=== PATIENT | female | born 1985 | race Caucasian/White ===

== ENCOUNTER 2018-02-17 11:45 | Outpatient (REF) | payer MEDICAID, SELFPAY ==
--- NOTE | 2018-02-17 11:00 | PAPFT_PTH ---
PATIENT: Casie Wild LOC: [facility] U#:[id number] AGE/SX: 32/F ROOM: RE02/17/[address]: RASHMI Martinez : 1985 BED: DIS: 02/17/2018 SPEC #: [id number] RECD: 02/17/18 13:08 STATUS: DANIEL REKeo #: [id number] BRITTANY: 02/17/18 11:[address]: Brittany Morrell DEPT: [facility] Cytology RECD BY: Cheyenne Landis ENTERED: 02/17/18 13:08 SP TYPE: PAPFT OTHR DR: Chris Avalos Tissues: 1 - CX/ENDOCX FOR PAP SMEARS Procedures: PAP THIN PREP/UVM Screening HPV DNA PROBE Comments: [id number]
== END 2018-02-17 12:05 ==
LOC: LBN 11:45
PROVIDERS: PCP Internal Medicine; Visit Provider Nurse Practitioner Family
DX: Z12.4 Encounter for screening for malignant neoplasm of cervix (principal); Z11.51 Encounter for screening for human papillomavirus (HPV)
CPT/HCPCS: 88142; 87624

== ENCOUNTER 2019-04-20 13:06 | Outpatient (REF) | payer MEDICAID, SELFPAY ==
--- NOTE | 2019-04-20 11:30 | PAPFT_PTH ---
PATIENT: Casie Wild LOC: [facility] U#:[id number] AGE/SX: 33/F ROOM: RE04/20/[address]: RASHMI Martinez : 1985 BED: DIS: 04/20/2019 SPEC #: [id number] RECD: 04/20/19 17:45 STATUS: DANIEL REKeo #: [id number] BRITTANY: 04/20/19 11:[address]: Brittany Morrell DEPT: [facility] Cytology RECD BY: Cheyenne Landis ENTERED: 04/20/19 17:45 SP TYPE: PAPFT OTHR DR: Chris Avalos Tissues: 1 - CX/ENDOCX FOR PAP SMEARS Procedures: PAP THIN PREP/UVM Screening HPV DNA PROBE Comments: [id number]
== END 2019-04-20 13:26 ==
LOC: LBN 13:06
PROVIDERS: PCP Internal Medicine; Visit Provider Nurse Practitioner Family
DX: Z12.4 Encounter for screening for malignant neoplasm of cervix (principal)
CPT/HCPCS: 88142; 87624

== ENCOUNTER 2020-04-27 16:13 | Outpatient (REF) | payer MEDICAID, SELFPAY ==
--- NOTE | 2020-04-27 15:45 | PAPFT_PTH ---
PATIENT: Casie Wild LOC: [facility] U#:[id number] AGE/SX: 34/F ROOM: RE04/27/[address]: Carmencita Baum DO : 1985 BED: DIS: 04/27/2020 SPEC #: [id number] RECD: 04/27/20 16:26 STATUS: MIGUEL AJess REQ #: [id number] BRITTANY: 04/27/20 15:[address]: Carmencita Baum DEPT: [facility] Cytology RECD BY: Cheyenne Landis ENTERED: 04/27/20 16:26 SP TYPE: PAPFT OTHR DR: Chris Avalos Tissues: 1 - CX/ENDOCX FOR PAP SMEARS Procedures: PAP THIN PREP/UVM Screening HPV DNA PROBE Comments: [id number] (CHLAMYDIA/GC)
[2020-04-28 15:02] LABS: Chlamydia Result Negative (Negative); GC Result Negative (Negative)
== END 2020-04-27 16:33 ==
LOC: LBN 16:13
PROVIDERS: PCP Internal Medicine; Visit Provider Obstetrics & Gynecology
DX: Z11.3 Encounter for screening for infections with a predominantly sexual mode of transmission (principal); Z12.4 Encounter for screening for malignant neoplasm of cervix; Z11.51 Encounter for screening for human papillomavirus (HPV)
CPT/HCPCS: 87491; 87591; 88142; 87624

== ENCOUNTER 2020-08-02 17:05 | Outpatient (REF) | payer MEDICAID, SELFPAY | END 2020-08-02 17:06 | disposition home or self-care (01) | LOC: NCHCN 17:05 | PROVIDERS: PCP Internal Medicine; Visit Provider Family Medicine | DX: L01.09 Other impetigo (principal) | CPT/HCPCS: 87070; 87205 ==

== ENCOUNTER 2020-09-11 19:02 | Outpatient (REF) | payer MEDICAID, SELFPAY | END 2020-09-11 19:03 | disposition home or self-care (01) | LOC: NCHCN 19:02 | PROVIDERS: PCP Internal Medicine; Visit Provider Family Medicine | DX: R30.0 Dysuria (principal) | CPT/HCPCS: 87077; 87086; 87186 ==

== ENCOUNTER 2021-01-16 17:36 | Emergency (ER) | payer MEDICAID, SELFPAY ==
[2021-01-16 17:44] VITALS: BP 143/78; PULSE 86; RESP 16; TEMP 37.3; O2SAT 100
--- NOTE | 2021-01-16 18:00 | DI.RAD_ITS ---
Exam(s) XR THUMB RT EXAM: XR THUMB RT CLINICAL HISTORY: prox pain after deviation. TECHNIQUE: 2D digital imaging was performed of the right finger. Four views were obtained. PA/AP, oblique, and lateral views were obtained. COMPARISON: CR RIGHT HAND COMPLETE from 01/25/2011 FINDINGS: BONES: No acute fracture is present. No bony destructive lesion is seen. JOINTS: No dislocation present. SOFT TISSUE: Normal. IMPRESSION: No evidence of acute fracture, dislocation, or subluxation. DATA REPOSITORY: RADIATION DOSE DELIVERED:
--- NOTE | 2021-01-16 18:03 | ED.GENADUL_ITS ---
Discharge Plan Disposition Patient Disposition: HOME Condition: Improving Discharge Details Clinical Impression: Injury of thumb, right Primary Care Provider: Rayo Khalil ED Provider: Abdi Chaudhari Home Meds and New Rx's Prescriptions: Continued tramadol 50 MG tablet 1 - 2 tab PO BID PRN PRNRF: 0 Mirena 20 mcg/24 hours (7 yrs) 52 mg Intrauterine Device INTRAUTERINE RF: 0 Discharge Instructions Additional Instructions: Keep your hand elevated above the level of the heart to reduce pain and swelling. May apply ice to the splint to reduce discomfort. Tylenol as needed for pain and may continue your prescribed tramadol. As we discussed I am concerned for a skiers thumb or ulnar collateral ligament injury and therefore we have placed you in a splint we will have you follow-up in orthopedic clinic for recheck. Please call the clinic at [phone] for an appointment time. Splint to remain in place and dry until seen in orthopedics. Return to the ER for any acute concerns. 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 She developed immediate pain and swelling. With an exam that reveals tenderness over the thenar eminence. Referred for x-ray which does not reveal underlying bony abnormality. Given the forceful deviation of the thumb I am concerned for ulnar collateral ligament injury, and I discussed this with the patient and placed her in a thumb spica and I will have her follow-up in orthopedic clinic for follow-up and recheck. . HPI General Mode of arrival: ambulatory . Date/Time Provider Initiated Documentation: 01/16/21 17:56 . Limitations to Documentation: no limitations . Information obtained by: patient . History of Present Illness 35 year old F presents to the emergency department with the chief complaint of Right thumb injury and pain, described as moderate, Quality is described as dull and constant, and is localized to the right and upper extremity. Patient reports no radiation. Patient started experiencing this minute(s) and it has been constant. No relieving factors improve symptom(s), Movement worsens symptoms . Patient notes other (No other injury, no numbness or tingling. Applied ice prior to evaluation). Patient did receive the following treatments prior to arrival, cold therapy Related Data Home Medications Medication Instructions Recorded Confirmed tramadol 1 - 2 tab PO BID PRN PRN tab-cap 01/11/14 01/16/21 Mirena INTRAUTERINE 01/16/21 Allergies Allergy/AdvReac Type Severity Reaction Status Date / Time Penicillins Allergy Intermediate Hives Verified 01/16/21 17:48 General Stated Complaint: Orthopedic TRACI: 4 Review of Systems Narrative: No other injury, no numbness or tingling. Otherwise has been well. PFSH Family History Mother Uterine prolapse Social History Smoking/Tobacco Use Status: Current every day Tobacco Type: cigarettes Quit status: not considering quitting Smoking risk assessment performed?: Yes Drug use: Daily Substance use type: marijuana Female Reproductive History Menstrual control method: pills History History 0 Para Hx # Term Pregnancies Multiple births Hx # Pregnancies Ectopic pregnancies AB induced Hx Number of Living Children AB spontaneous Exam Narrative Exam Narrative: GEN: awake, alert, oriented 3. Pleasant, well groomed, interactive. HEAD: Normocephalic, atraumatic ENT: Mucous membranes moist, oropharynx unremarkable, External ear exam unremarkable EYES: PERRL, EOMI EXT: Range of motion limited by pain, right thumb base swollen and tender to palpation. Normal sensation. Able to initiate all movements of the thumb including apposition, but limited by pain. Neuro: Grossly normal neurologic exam, conversant, interactive. Psych: Speech fluent, thoughts congruent, affect normal Course Vital Signs Vital signs: Vital Signs Temperature 37.3 C 01/16/21 17:44 Pulse 86 01/16/21 17:44 Respiratory Rate 16 01/16/21 17:44 Blood Pressure 143/78 H 01/16/21 17:44 Pulse Oximetry 100 01/16/21 17:44 Temperature 37.3 C 01/16/21 17:44 Temperature Source Skin 01/16/21 17:44 Pulse 86 01/16/21 17:44 Respiratory Rate 16 01/16/21 17:44 Respiratory Effort Non-Labored 01/16/21 17:44 Blood Pressure 143/78 H 01/16/21 17:44 Blood Pressure Position Sitting 01/16/21 17:44 Pulse Oximetry 100 01/16/21 17:44 Oxygen Delivery Method Room Air 01/16/21 17:44 Oxygen Flow Rate 0 01/16/21 17:44 Pain Level 6 01/16/21 17:44 Procedures Orthopedic Splinting/Casting Injury #1: Side: right Upper Extremity Injury Location: hand Upper Extremity Immobilizer: thumb spica PAWSS Have you Been Recently Intoxicated or Drunk Within the Last 30 days?: Yes Have you Ever Experienced Previous Episodes of Alcohol Withdrawal?: No Have you ever Experienced Withdrawal Seizures?: No Have you ever Experienced Delirium Tremens(DT)s?: No Have you ever undergone Alcohol Rehabilitation Treatment (i.e, inpt ot outpatient treatment programs)?: No Have you ever Experienced Blackouts?: No Have you ever Combined Alcohol with other Downers within the last 90 days?: No Have you ever Combined Alcohol with any other Substance of Abuse during the last 90 days?: No Positive Blood Alcohol level on Presentation? [PCS.BAL]: No Evidence of Increased Autonomic Activity (i.e. HR>120, tremor, sweating, agitation, nausea)?: No Result: 1
--- NOTE | 2021-01-16 18:45 | DI.VRAD_ITS ---
PROCEDURE INFORMATION: Exam: XR Right Finger(s) Exam date and time: 01/16/2021 6:02 PM Age: 35 years old Clinical indication: Other: Prox pain after deviation TECHNIQUE: Imaging protocol: XR Right fingers. Views: Minimum 2 views. COMPARISON: No relevant prior studies available. FINDINGS: Bones/joints: Normal. Soft tissues: Normal. IMPRESSION: Unremarkable exam. Dictated and Authenticated by: Apoorva Ferrari MD. Ordering:JACQUELYN Patton MD
== END 2021-01-16 19:11 | disposition home or self-care (01) ==
PROVIDERS: Emergency Provider Emergency Medicine; PCP Family Medicine
DX: S69.91XA Unspecified injury of right wrist, hand and finger(s), initial encounter (principal); X50.9XXA Other and unspecified overexertion or strenuous movements or postures, initial encounter
CPT/HCPCS: 29125; 99283; 73140

== ENCOUNTER 2021-05-25 19:15 | Outpatient (REF) | payer MEDICAID, SELFPAY ==
[2021-05-25 14:24] LABS: HCT 39.6 % (36.0-46.0); HGB 13.1 g/dL (11.2-15.7); MCH 30.4 pg (27.0-33.0); MCHC 33.1 % (32.0-36.0); MCV 91.9 fL (80-95); MPV 9.9 fL (8.0-11.0); Platelet Count 208 10^3/uL (130-400); RBC 4.31 10^6/uL (3.93-5.22); RDW-SD 41.2 fL; WBC 7.46 10^3/uL (4.4-10.8)
[2021-05-25 15:02] LABS: Vitamin B12 674 pg/mL (193-986)
[2021-05-27 10:05] LABS: HIV-1/2 Ag & Ab Screen Negative (Negative)
[2021-05-28 10:32] LABS: Hepatitis C Ab w Rflx HCV PCR Negative (Negative)
== END 2021-05-25 19:16 | disposition home or self-care (01) ==
LOC: NCHCN 19:15
PROVIDERS: PCP Family Medicine; Visit Provider Family Medicine
DX: G47.00 Insomnia, unspecified (principal); K58.9 Irritable bowel syndrome, unspecified; F41.8 Other specified anxiety disorders; Q79.60 Ehlers-Danlos syndrome, unspecified; Z11.4 Encounter for screening for human immunodeficiency virus [HIV]; Z11.59 Encounter for screening for other viral diseases
CPT/HCPCS: 85027; 86803; 87389; 82607

== ENCOUNTER 2021-09-12 16:39 | Outpatient (REF) | payer MEDICAID, SELFPAY ==
--- NOTE | 2021-09-12 12:15 | SKI_PTH ---
PATIENT: Casie Wild LOC: [facility]#:[id number] AGE/SX: 35/F ROOM: RE09/12/[address]: Rayo Khalil : 1985 BED: DIS: 09/12/2021 SPEC #: [id number] RECD: 09/13/21 11:57 STATUS: DANIEL REQ #: [id number] BRITTANY: 09/12/21 12:[address]: Rayo Khalil DEPT: Surgical Specimen RECD BY: Cheyenne Landis Tissues: 1 - SKIN BIOPSY(SHAVE/PUNCH) Procedures: SKIN LEVEL 4 Comments: [id number]
== END 2021-09-12 16:40 | disposition home or self-care (01) ==
LOC: NCHCN 16:39
PROVIDERS: PCP Family Medicine; Visit Provider Family Medicine
DX: L30.8 Other specified dermatitis (principal)
CPT/HCPCS: 88305

== ENCOUNTER 2021-10-06 12:05 | Emergency (ER) | payer MEDICAID, SELFPAY ==
[2021-10-06 12:15] VITALS: BP 139/86; PULSE 97; RESP 16; O2SAT 100
--- NOTE | 2021-10-06 12:28 | NUR.NOTE ---
Nursing Note: Patient stated to Lior Chandler that she did not need to be seen anymore and was leaving. Patient left.
== END 2021-10-06 12:27 | disposition left before discharge ==
PROVIDERS: PCP Family Medicine
DX: Z53.21 Procedure and treatment not carried out due to patient leaving prior to being seen by health care provider (principal)

== ENCOUNTER 2021-11-06 19:09 | Outpatient (REF) | payer MEDICAID, SELFPAY ==
[2021-11-08 15:11] LABS: Chlamydia Result Negative (Negative); GC Result Negative (Negative)
== END 2021-11-06 19:10 | disposition home or self-care (01) ==
LOC: LBN 19:09
PROVIDERS: PCP Family Medicine; Visit Provider Family Medicine
DX: N89.8 Other specified noninflammatory disorders of vagina (principal); J02.9 Acute pharyngitis, unspecified
CPT/HCPCS: 87491; 87591; 87480; 87510; 87660

== ENCOUNTER 2022-02-09 14:32 | Outpatient (REF) | payer MEDICAID, SELFPAY ==
[2022-02-11 17:54] LABS: Chlamydia Result Negative (Negative); GC Result Negative (Negative)
== END 2022-02-09 14:33 | disposition home or self-care (01) ==
LOC: LBN 14:32
PROVIDERS: PCP Family Medicine; Visit Provider Physician Assistant Medical
DX: N89.8 Other specified noninflammatory disorders of vagina (principal)
CPT/HCPCS: 87491; 87591; 87480; 87510; 87660

== ENCOUNTER → 2022-02-11 10:46 | Outpatient (CLI) | payer MEDICAID, SELFPAY ==
--- NOTE | 2022-02-11 | DI.CT_ITS ---
Exam(s) CT CHEST PE CTA EXAM: CT CHEST PE CTA CLINICAL HISTORY: DYSPNEA, R06.00, DISCOMFORT LT ANT UPPER LUNG. TECHNIQUE: Imaging Protocol: Axial CT angiography was performed with multi-slice acquisition and mu lti-planar reconstructions as well as axial, coronal and sagittal MIP reconstructions. CONTRAST MATERIAL: Intravenous: Omnipaque 350 Contrast volume:100 ml COMPARISON: No exams were available for comparison FINDINGS: Pulmonary Arteries: No evidence of filling defect to suggest pulmonary emboli. Tracheobronchial tree: Patent where visualized. Mediastinum and Albertina: No dominant adenopathy or fluid collection. Pulmonary parenchyma: No consolidation or dominant measurable mass. Pleura: No effusion or pneumothorax. Heart: The heart is not dilated. No coronary artery calcifications are seen. Aorta: Thoracic aorta non-dilated. No aneurysm. No dissection. Upper abdomen: Unremarkable. Bones: Unremarkable for age. Tubes, Catheters, and Lines: None IMPRESSION: No evidence of pulmonary embolism or other acute abnormality.. RADIATION DOSE DELIVERED: 343.92mGy.cm Total DLP DATA REPOSITORY: All CT scans at this facility are submitted to the National Radiology Data Registry (NRDR) Dose Index Registry (DIR) with the [employer] (ACR). RADIATION OPTIMIZATION: All CT scans at this facility use at least one of these dose optimization te chniques: automated exposure control; mA and/or kV adjustment per patient size (includes targeted exa ms where dose is matched to clinical indication); or iterative reconstruction.
--- OUTSIDE RECORDS SUMMARY | 2022-02-11 10:49 | XMS_ITS | Encounter Summary ---
:1985 Author Organization [facility] [place] [address] Care Team Providers Name Role Phone Chris Avalos MD Primary Care Provider Reason for Visit Reason Comments Right Arm Pain Encounter Details Date Type Department Care Team Description 11/21/2010 Follow-Up Pain Management at [facility], RSD upper limb (Primary [place] Dx) [facility] [place] [address] [facility]IN CL[facility]IC [phone] [place] [address] (Wo rk) Social History Tobacco Use Types Packs/Day Years Used Date Smoking Tobacco: Every Day Cigarettes 1 Alcohol Use Standard Drinks/Week Comments Not Asked 0 (1 standard drink = 0.6 oz pure alcoho l) Sex Assigned at Date Recorded Not on file documented as of this encounter Last Filed Vital Signs Vital Sign Reading Time Taken Comments Blood Pressure 132/87 11/21/2010 11:15 AM EDT Pulse 99 11/21/2010 11:15 AM EDT Temperature - - Respiratory Rate - - Oxygen Saturation 100% 11/21/2010 11:15 AM EDT Inhaled Oxygen Concentration - - Weight 64.9 kg (143 lb) 11/21/2010 11:15 AM EDT Height 177.8 cm (5' 10) 11/21/2010 11:15 AM EDT Body Mass Index 20.52 11/21/2010 11:15 AM EDT documented in this encounter Progress Notes [facility] MD - 11/21/2010 5:31 PM EDT The patient returns for followup for complex regional pain syndrome (CRPS) of right upper extremity.Patient states that the tramadol does help reduce the pain but does not eliminate it. It makes it more tolerable but she tries to avoid taking medications so she is not taking it routinely. When she does take 2 pills at once it helps significantly. Of significance because of her mood problems she has been discontinued from Ritalin and started on Depakote. Apparently her Depakote level was low when itwas measured because of problems with tiredness. Dr. Avalos is a managing her mood medications. The significance most antidepressants give her adverse reactions and particularly during the early starting weeks made her quite suicidal. She has scheduled acupuncture trial to see if that will help. She has been told by her physical therapist that most of nerve problems burn them self out after a while. She finds desensitization techniques continue to bother her and wonders why the physical therapist con tinues to recommend doing them she is doing a home exercise program and wonders if that is beneficial because it hurts. She is still not interested in any stellate ganglion block. She is even less interested in any spinal cord stimulator implantation and trial. She does report that she had a functional capacity evaluation and wound up with 3 days of severe intense pain and swelling which she reportedback to the examining person. She still notes some residual swelling. She still notes discomfort to any touching of the right arm. Objective: Mild edema mild coolness of the right upper extremity noted with allodynia circumferentially throughout the right forearm and hand. She now makes the more stringent criteria for the diagnosis of cramps of the right upper extremity. Recommendations I did recommend that she takes at least 6 tramadol per day to every 6 hours during the daytime skip the nighttime or go to 2 every 8 hours. Trying to keep the pain under better control so she can continue with the desensitization exercises and continued physical therapy home exercise program as importance for the management of CRPS. I would consider trying Neurontin or Lyrica as antiseizure medications to help with neuropathic pain particularly the pins and needles she is feeling in the arm. However both Lyrica and Neurontin have mood elevation and changing effects that may modify her treatment with her current Depakote for her mood effects. Perhaps if her Depakote can be raised hig her she may get some pain relief because it also is an antiseizure medication. If the Depakote does not give her adequate treatment of her mood then consideration of addition or changing over to Lyricaor Neurontin would be an option that Dr. Avalos could consider. Given her reaction to antidepressants I reluctant to start those and would defer to Dr. Avalos if those are indicated given her other past history. Finally stronger opioids may be an option my recommendation would be methadone but she is frightened of that is being a drug for addiction. She states that Percocet has worked well for her post surgery and would wonder about being able to utilize that although she is not in favor of using chronic narcotics at all at this point either. The final option would be cognitive behavioral therapy which her therapist to provide or referral can be made to Dr. Wood in our psychology department at [facility]. Unfortunately other than physical therapy and medical management which would best be done through Dr. Avalos because of all of the various interactions and psychological side effects that can occur I really have not much else to offer the patient. I therefore I have not set up a followup appointment at this point in time. If she changes her mind and wants to try a stellate ganglion block at some point in the future she can be referred back just for the performance of at procedure unless she needs todiscuss the procedure and risk and more with me. We did discuss the risk including Maryellen's syndrometemporarily related to the local anesthetic hoarseness difficulty swallowing related to the local anesthetic remote chance of nerve injury remote chance of spilling over local anesthetic and to a brachial plexus block reaction to medications and nerve injury. We talked free if briefly about the spinalcord stimulator as being placement of a catheter in the epidural space was similar risk to having anepidural for childbirth. We did provide her with a video on spinal cord stimulation so that she could review that at her leisure. We spent over 30 minutes of direct [id number]-[id number] time with this patient which more than 20 minutes was counseling and advising the patient as mentioned above. documented in this encounter Plan of Treatment Not on filedocumented as of this encounter Visit Diagnoses Diagnosis RSD upper limb - Primary Reflex sympathetic dystrophy of the uppe r limb documented in this encounter Care Teams Pet Groomer Relationship Specialty Start Date End Date Chris Avalos MD PCP - General 02/20/10 02/04/21 [address] [place] [address] documented as of this encounter
--- OUTSIDE RECORDS SUMMARY | 2022-02-11 10:49 | XMS_ITS | Encounter Summary ---
:1985 Author Organization [place] [address] Care Team Providers Name Role Phone Chris Avalos MD Primary Care Provider Reason for Visit Reason Comments Joint Pain Encounter Details Date Type Department Care Team Description 09/19/2010 Office Visit Pain Management at [facility] MD [facility] [place] [address] Elbow pain (Primary [place] Unknown None Dx) [place] [id number] Social History Tobacco Use Types Packs/Day Years Used Date Smoking Tobacco: Every Day Cigarettes 1 Tobacco Cessation: Ready to Quit: No Alcohol Use Standard Drinks/Week Comments Not Asked 0 (1 standard drink = 0.6 oz pure alcoho l) Sex Assigned at Date Recorded Not on file documented as of this encounter Last Filed Vital Signs Vital Sign Reading Time Taken Comments Blood Pressure 136/85 09/19/2010 2:39 PM EDT Pulse 87 09/19/2010 2:39 PM EDT Temperature - - Respiratory Rate - - Oxygen Saturation 100% 09/19/2010 2:39 PM EDT Inhaled Oxygen Concentration - - Weight 63 kg (139 lb) 09/19/2010 2:39 PM EDT Height 177.8 cm (5' 10) 09/19/2010 2:39 PM EDT Body Mass Index 19.94 09/19/2010 2:39 PM EDT documented in this encounter Progress Notes [facility] MD - 09/20/2010 6:08 PM EDT Subjective: Patient ID: Casie Wild is a 24 y.o. female. I have been requested by Dr. Russo to see Casie Wild for my opinion and recommendations regarding Chief Complaint Patient presents with ??? Joint Pain And possible complex regional pain syndrome. 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 During part of the treatment for that problem she had an injection near the lateral epicondyles approximately a year ago. At the time of the injection of the local tissue turned white there is incredible pain and still feels like there is a screw or nail and the elbow. She notes that the whole hand will swell at times. The pain is gone all theway up into her shoulder as a sharp twisting pain with a tightness in the forearm now. She knows that putting clothes rubbing against the arm will bother her and stress his will bother her. She notes that there is numbness in the ring and little fingers of the right hand. She's had II nerve conductionstudies which he reports showed no nerve damage. She has been treated with Lodine I believe. As wellas a Voltaren gel Novocain patches injurious other NSAIDs orally which led to vomiting. The pain is described as a constant ache with a cold feeling around the elbow in the right arm feels colder than the left arm. She's never recall trying Neurontin or Lyrica. She has tried physical therapy in contrast baths and various desensitization exercises to help with this problem. Review of Systems Constitutional: Negative for unexpected weight change. HENT: Negative for ear pain and dental problem. Respiratory: Negative for cough, shortness of breath and wheezing. Genitourinary: Negative for dysuria and hematuria. UTIs in the past Skin: Positive for color change. Neurological: Positive for seizures ( patient had one short lived seizure when she was in her youth and trying to make herself passed out). Hematological: Bruises/bleeds easily ( states she does bleed for a long time). Social history she is single living with a significant other she has no children she is smoking overa pack of cigarettes per day and occasionally drinks alcohol occasionally uses marijuana but no other significant drugs for at least 7 years Objective: Physical Exam Constitutional: She is oriented to person, place, and time. She appears well- developed and well-nourished. HENT: Head: Normocephalic. Eyes: Conjunctivae are normal. No scleral icterus. Neck: Neck supple. Musculoskeletal: Normal range of motion. Right shoulder: Normal. Right elbow: She exhibits deformity ( slight loss of subcutaneous tissues over the lateral epicondyles area). tenderness found. Lateral epicondyle tenderness noted. Lymphadenopathy: She has no cervical adenopathy. Neurological: She is alert and oriented to person, place, and time. She has normal strength. A sensory deficit is present. No cranial nerve deficit. Patchy decreased sensation and some allodynia spots in the right forearm hand area Skin: Both hands are cool with temperatures of 76??F on the right and 77??F on the left. There may be some slight swelling with loss of tissue lines on the right hand compared to the left hand. There is no differences in the colors of both hands Psychiatric: She has a normal mood and affect. Her behavior is normal. Judgment and thought content normal. Patient was easily moved to tears periodically throughout this examination and interview. Assessment and Plan: No problem-specific visit notes found for this encounter. Assessment is a patient with right upper extremity pain which by IASP would qualify for the diagnosis of CRPS right upper extremity. Some of the additional criteria that have become somewhat more stringent including examination evidence of pseudomotor edema or other possible issues at the time of thisexam are not quite made. Still I think that treatment along the lines medication ornelas has CRPS is reasonable Plan: 1. Patient is looking for some degree of pain relief now I think therefore will try some tramadol tosee if we can get pain relief without much in the way of addiction possibility. Because prescriptionwas written and side effects and recommendations were discussed. 2. If that is not successful then I would consider a trial of Lyrica or Neurontin. 3. I recommended that she continue with the desensitization exercises contrast baths and talk about stress loading techniques to help regain function. 4. We talked about stellate ganglion blocks but the patient is not at all enthusiastic about any injections particularly in her neck having see what happened to her injection at the elbow area. 5. I will see the patient in 4-6 weeks or I can work with her primary care to adjust the medications. documented in this encounter Plan of Treatment Not on filedocumented as of this encounter Visit Diagnoses Diagnosis Elbow pain - Primary Pain in joint, upper arm documented in this encounter Care Teams Deckhand Crab Boat Relationship Specialty Start Date End Date Chris Avalos MD PCP - General 02/20/10 02/04/21 [address] [place] [address] documented as of this encounter
--- OUTSIDE RECORDS SUMMARY | 2022-02-11 10:49 | XMS_ITS | Encounter Summary ---
:1985 Author Organization [facility] [place] [address] Care Team Providers Name Role Phone Chris Avalos MD Primary Care Provider Reason for Visit Reason Comments Establish Care Encounter Details Date Type Department Care Team Description 07/29/2013 Office Visit Endocrinology at [facility] uJdy Zhou; [facility] Alivno Johnson MD Chronic fatigue; [facility] Postural hypotension; [place] [address] CENTER Amenorrhea; [phone] ENDOCRINOLOGY Barrington-Danlos syndrome type III DEPT. [place], [place] [address] Social History Tobacco Use Types Packs/Day Years Used Date Smoking Tobacco: Every Day Cigarettes 1 Smokeless Tobacco: Never Alcohol Use Standard Drinks/Week Comments Not Asked 0 (1 standard drink = 0.6 oz pure alcoho l) Sex Assigned at Date Recorded Not on file documented as of this encounter Last Filed Vital Signs Vital Sign Reading Time Taken Comments Blood Pressure 136/83 07/29/2013 1:54 PM EDT Pulse 81 07/29/2013 1:54 PM EDT Temperature - - Respiratory Rate - - Oxygen Saturation - - Inhaled Oxygen Concentration - - Weight 63.5 kg (140 lb) 07/29/2013 1:54 PM EDT Height 175.3 cm (5' 9) 07/29/2013 1:54 PM EDT Body Mass Index 20.67 07/29/2013 1:54 PM EDT documented in this encounter Progress Notes Alvino Smith MD - 07/29/2013 2:12 PM EDT Endocrinology Consultation Date of Visit: 07/29/2013 Patient: Name: Casie Wild : 1985 PCP: CHRIS AVALOS MD Performed by: Dr. Alvino Smith MD., PhD., FACE Casie Wild was seen in consultation in the Endocrine clinic at the request of Dr. CHRIS AVALOS MD For the evaluation of PCOS. Patient's previous record as are the lab results are reviewed. Brief History of Present Illness: Casie Wild is a very pleasant 27 y.o. year old female with the following problem list: Patient Active Problem List Diagnosis Code ??? CIS - ADHD T999.0 ??? CIS - Entered not Verified T999.0 ??? CIS - Left both bones fracture T999.0 ??? CIS - Right elbow pain T999.0 ??? CIS - Right lateral epicondylitis T999.0 ??? Elbow pain 719.42 ??? RSD upper limb 337.21 ??? Joint laxity 718.80 ??? Chronic joint pain 719.40 ??? 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 Polycystic ovaries with facial hair growth and night sweats 256.4 ??? 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 She has a long-standing history of hirsutism and irregular periods since menarche at age of 12. She was started on OCP's since age 13 to help regulate her periods and noted some improvement of her symptoms. Had polycystic ovaries seen on pelvic ultrasound in the past at age of 20 when she visited ED (ruptured ovarian cyst). Never tried laser ablation and electrolysis for the unwanted facial hairs but ok with plugging and bleaching for recurrent hair growth. Currently she is plugging her face and upper lip and bleaching once per week. Never had testosterone levels in the past. She is using microgestin pills for OCPs without taking placebo pills so she has been amenorrheic and does not like to have monthly periods (used to have heavy periods with low iron in the past). ROS:(Details as shown in patient's initial visit questionaire) Constitutional: +some tiredness. No recent weight gain, no heat or cold intolerance Endocrine: No thyroid problems. +nocyurna; sweating and flushing. No galactorrhea or breast tenderness. Irregular menstrual cycles before she started BCPs. +low sexual desire. Integument:+excessive hair growth, acne, oily skin but no balding. No easily bruising. Neurological: Some Rt side and top of the head headache. No weakness. + dizziness with postural hypotension lately (*on tramadol 400-500 mg/day for Rt RSD for the past 3-4 yrs) HEENT: No recent vision change or deepened voice Cardiovascular: No chest pain or palpitations Respiratory: No cough, wheezing, shortness of breath GI: Normal appetite. No nausea, vomiting except for some IBS with diarrhea & constipation : No clitoromegaly. No polyuria Musculoskeletal:+ joint aches over the Rt hip and lower back, elbow and left ankle. Also, muscle pain. Psych: No depression, anxiety PMH: Patient Active Problem List Diagnosis Code ??? CIS - ADHD T999.0 ??? CIS - Entered not Verified T999.0 ??? CIS - Left both bones fracture T999.0 ??? CIS - Right elbow pain T999.0 ??? CIS - Right lateral epicondylitis T999.0 ??? Elbow pain 719.42 ??? RSD upper limb 337.21 ??? Joint laxity 718.80 ??? Chronic joint pain 719.40 ??? 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 Polycystic ovaries with facial hair growth and night sweats 256.4 ??? Chronic fatigue 780.79 Current Outpatient Prescriptions on File Prior to Visit Medication Sig Dispense Refill ??? traMADol (ULTRAM) 50 mg tablet Take 50 mg by mouth every 6 hours as needed. ??? Ascorbic Acid (VITAMIN C) 1,000 mg tablet Take 1,000 mg by mouth daily. ??? FSH/FLX/PRM/BLK/BOR/OM3,6,9 #5 (OMEGA 3-6-9 FATTY ACIDS ORAL) Take 2 capsules by mouth daily. ??? Norethindrone Ac-Eth Estradiol (MICROGESTIN 1.5/30, 21,) 1.5-30 mg-mcg Tab ??? multivitamin (MULTIPLE VITAMINS) tablet ??? methylphenidate (RITALIN) 10 mg tablet Take 10 mg by mouth 3 times daily. ??? [DISCONTINUED] LEIGH ANN PRIM/LINOLEIC/GAMOLENIC AC (PRIMROSE OIL ORAL) Take 1 capsule by mouth daily. Allergies Allergen Reactions ??? Penicillins Hives ??? Chantix (Varenicline) Other (See Comments) depression History Social History ??? Marital Status: Single Spouse Name: N/A Number of Children: 0 ??? Years of Education: N/A Occupational History ??? unemployed Social History Main Topics ??? Smoking status: Current Every Day Smoker -- 1.0 packs/day ??? Smokeless tobacco: Never Used ??? Alcohol Use: None ??? Drug Use: Yes Comment: in past ??? Sexually Active: None Other Topics Concern ??? None Social History Narrative Patient lives with her boyfriend and is unemployed due to disability since 2008 due to right arm injury. No family history on file. PE: BP 136/83 Pulse 81 Ht 175.3 cm (5' 9) Wt 63.504 kg (140 lb) BMI 20.67 kg/m2 Appearance: Patient is very pleasant 27 y.o. years old female, obese, clinically euthyroid, not in acute distress, accompanied by her boyfriend who is very supportive. Skin - normal in texture and temperature, no abnormal striae or ecchymosis. She has hypermobility skin and joint and can do dorsiflexion of her thumb back to forearm. HEENT - +minimal facial acne and hirsutism (s/p plugging) with some terminal hairs around her lips and along the side of her face. No temporal alopecia. PERRLA, EOMI, no lid lag or exophthalmos. Neck - supple, no goiter or nodule, no lymphadenopathy Lungs - Normal chest expansion, no crackles or wheeze Heart - regular rhythm, normal apical impulse, normal S1, S2 and no murmur Abdomen - soft, non-tender, no hepatosplenomegaly Extremities - no pitting edema, normal distal pulses, no proximal muscle weakness, reflexes were normal Assessment: Casie Wild is a 27 y.o. year old female with longstanding history of irregular menstrual cycles since menarche, some worsening facial hirsutism recently, mild facial acne and already taking BCPs (microprogestin active pills without placebo pills so she has been amenorrheic chronically). She has US s howed polycystic ovaries and will check labs to see if she has features of PCOS. Her main problems are cosmetic issues and she has no desire for fertility at present. No features of metabolic syndrome and in good weight. We will check her some of her hormonal profile to exclude other causes of her symptoms and start treatment for her hirsutism as well. Her main concern today is for hot flushes and night sweats despite taking micro- progestin. She wantsto try estrogen replacement with periodic progesterone withdrawal bleeding to see if it helps her hot flushes. 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 Will check her pituitary hormones to make sure that she does not have side effects of narcotic-induced hypopituitarism which affects mostly the gonadal axis and rarely adrenal axis without thyroid issue. She c/o dizziness, near-fainting episodes, and postural hypotension occasionally as well. Recommendation: 1. Medication: Patient will start taking spironolactone 25-50 mg bid to help block testosterone effects at the hair follicles. Ok to try to switch microgestin to estradiol 1 mg qd and also provera 10 mg for 7-10 days every 60-90 days for withdrawal bleeding to see if this will help with her hot flushes and sweating which bother her most at present. Patient was advised of proper dosage, how to take the medication properly, precautions, and possible side effects of the medication prescribed. Patient will continue all current medications, healthy diet and execise regularly as tolerated. 2. Lab: check lab today for total and free testosterone, DHEAS, PRL, FSH, LH, TSH, FT4, corisol, ACTH, IGF-1, CMP and 25-vitamin D We will let patient know lab test results and adjust medication if needed during this interim. 3. RTC: Next visit in 3 months. Will check estradiol level and BMP and maybe some other labs at the time (quick-draw lab so we know the result right away at visit). We have reviewed our plan outlined above with the patient and patient verbalized understanding and is agreeable with this management. All questions were answered and most of the time was spent on counseling about pertinent medical conditions, medications adjustment including pros and cons of starting m edication, the diagnostic and therapeutic decisions, and coordination of care. Thank you for allowing me to participate in the care of this very pleasant and interesting patient. Alvino Smith MD, PhD, FACE CC: CHRIS AVALOS MD documented in this encounter Plan of Treatment Not on filedocumented as of this encounter Procedures Procedure Name Priority Date/Time Associated Comments Diagnosis INSULIN LIKE GF-1 Routine 07/29/2013 3:10 PM Hirsutism Results for this EDT Chronic fatigue procedure are in Postural the results hypotension section. DIFFERENTIAL, Routine 07/29/2013 3:10 PM Results for this AUTOMATED EDT procedure are i n the results section. TESTOSTERONE, TOTAL Routine 07/29/2013 3:10 PM Hirsutism Results for this AND FREE EDT Chronic fatigue procedure are in Postural the results hypotension section. IRON AND TIBC Routine 07/29/2013 3:10 PM Hirsutism Results for this EDT Chronic fatigue procedure are in Postural the results hypotension section. VITAMIN D, 25-HYDROXY Routine 07/29/2013 3:10 PM Hirsuti sm Results for this EDT Chronic fatigue procedure are in Postural the results hypotension section. PROLACTIN Routine 07/29/2013 3:10 PM Hirsutism Results for this EDT Chronic fatigue procedure are in Postural the results hypotension section. DHEA-SULFATE Routine 07/29/2013 3:10 PM Results f or this EDT procedure are i n the results section. ESTRADIOL Routine 07/29/2013 3:10 PM Results f or this EDT procedure are i n the results section. ACTH Routine 07/29/2013 3:10 PM Hirsutism Results for this EDT Chronic fatigue procedure are in Postural the results hypotension section. CBC (WITH DIFF) Routine 07/29/2013 3:10 PM Hirsutism Results for this EDT Chronic fatigue procedure are in Postural the results hypotension section. TSH Routine 07/29/2013 3:10 PM Hirsutism Results for this EDT Chronic fatigue procedure are in Postural the results hypotension section. T4, FREE Routine 07/29/2013 3:10 PM Hirsutism Results for this EDT Chronic fatigue procedure are in Postural the results hypotension section. LUTEINIZING HORMONE Routine 07/29/2013 3:10 PM Amenorrhea Re sults for this EDT procedure are i n the results section. FOLLICLE STIMULATING Routine 07/29/2013 3:10 PM Amenorrhea R esults for this HORMONE EDT procedure are i n the results section. CORTISOL Routine 07/29/2013 3:10 PM Hirsutism Results for this EDT Chronic fatigue procedure are in Postural the results hypotension section. COMPREHENSIVE Routine 07/29/2013 3:10 PM Hirsutism Results for this METABOLIC PANEL EDT Chronic fatigue procedure are in (NON-FASTING) Postural the results hypotension section. documented in this encounter Results DHEA-sulfate (07/29/2013 3:10 PM EDT) athologist Signature DHEAS 106.5 98.8 - CERNER 340.0 MILLENNIUM mcg/dL Specimen Anatomical Collection Method Collection Time Receive d Time (Source) Location / / Volume Laterality Blood specimen 07/29/2013 3:10 PM 014 (specimen) EDT 10:49 AM EDT Resulting Agency Comment Spec In Lab Alvino Smith MD CHEMISTRY ORDERABLES Performing Organization Address City/State/ZIP Code Phon e Number [place] [phone] CERNER MILLENNIUM Estradiol (07/29/2013 3:10 PM EDT) P athologist Signature Estradiol <10 pg/mL CERNER MILLENNIUM Comment: result rechecked-NM Reference ranges: Males: ?? 1-10 years: <5 to 20 pg/mL ?? Adult: ? 0 to 45 pg/mL Females: ?? 1-10 years ??6 to 27 pg/mL Non- females: ?Follicular: ??0-178 pg/mL ?Ovulation: ??48-388 pg/mL ?Luteal: ??31-247 pg/mL ?Postmenopausal: ??0-46 pg /mL females: ?1st trimester: ??38-3175 pg/mL ?2nd trimester: ??678-1663 3 pg/mL ?3rd trimester: ??43-57300 pg/mL Specimen Anatomical Collection Method Collection Time Receive d Time (Source) Location / / Volume Laterality Blood specimen 07/29/2013 3:10 PM 014 9:03 (specimen) EDT PM EDT Resulting Agency Comment Spec In Lab Alvino Smith MD CHEMISTRY ORDERABLES Performing Organization Address City/State/ZIP Code Phon e Number [place] [phone] CERNER MILLENNIUM (ABNORMAL) Differential, Automated (07/29/2013 3:10 PM EDT) [facility] gist Method Time Signature Neutrophils % 49.4 34.0 - CERNER 71.0 % MILLENNIUM Neutr Abs (ANC) 3.97 1.50 - CERNER 6.30 MILLENNIUM x10(3)/mcL Lymphocytes % 44.2 19.0 - CERNER 53.0 % MILLENNIUM Lymphocytes Abs 3.6 1.0 - 3.6 CERNER x10(3)/mcL MILLENNIUM Monocytes % 3.2 (L) 4.0 - 13.0 CERNER % MILLENNIUM Monocyte Abs 0.3 0.2 - 1.0 CERNER x10(3)/mcL MILLENNIUM Eosinophils % 2.6 0.0 - 7.0 CERNER % MILLENNIUM Eosinophils Abs 0.2 0.0 - 0.5 CERNER x10(3)/mcL MILLENNIUM Basophils % 0.4 0.0 - 2.0 CERNER % MILLENNIUM Basophils Abs 0.0 0.0 - 0.2 CERNER x10(3)/mcL MILLENNIUM Immature Gran % 0.20 0.00 - CERNER 0.66 % MILLENNIUM Comment: Immature granulocytes(IG's)percentage an d absolute count will include metamyelocytes, myelocytes, and promyelo cytes. Blood smears from CBCs yielding IG's will be scanned manually for concor dance. If this scan disagrees with the automated IG or if promyelocytes are not ed, a manual differential will be performed. Lynette Gran Abs 0.02 0.00 - 0.05 x10(3)/mcL CER NER [facility] Specimen Anatomical Collection Method Collection Time Receive d Time (Source) Location / / Volume Laterality Blood specimen 07/29/2013 3:10 PM 014 3:15 (specimen) EDT PM EDT Alvino Smith MD HEMATOLOGY ORDERABLES Performing Organization Address [facility] Phon e Number [address] [facility] Luteinizing Hormone (07/29/2013 3:10 PM EDT) athologist Signature LH 1.3 mlU/ML [facility] Comment: Reference ranges: ?? Females ?? Follicular: ? 2.4-12.6 mIU /mL ?? Ovulation: ?14.0-95.6 m IU/mL ?? Luteal: ? 1.0-11.4 m IU/mL ?? Postmenopausal: ? 7.7-58.5 mIU/m L Specimen Anatomical Collection Method Collection Time Receive d Time (Source) Location / / Volume Laterality Blood specimen 07/29/2013 3:10 PM 014 3:15 (specimen) EDT PM EDT Resulting Agency Comment Spec In Lab Alvino Smith MD CHEMISTRY ORDERABLES Performing Organization Address [facility] Phon e Number [address] [facility] Follicle Stimulating Hormone (07/29/2013 3:10 PM EDT) P athologist Signature FSH 3.0 mlU/ML [facility] Comment: Reference Ranges: Females: Follicular: ? 3.5-12.5 mIU/mL Ovulation: ?4.7-21.5 mIU/mL Luteal: ? 1.7-7.7 mIU/mL Postmenopausal: 25.8-134.8 mIU/mL Specimen Anatomical Collection Method Collection Time Receive d Time (Source) Location / / Volume Laterality Blood specimen 07/29/2013 3:10 PM 014 3:15 (specimen) EDT PM EDT Resulting Agency Comment Spec In Lab Alvino Smith MD CHEMISTRY ORDERABLES Performing Organization Address City/[facility]/ZIP Code Phon e Number [address] CERNER MILLENNIUM VIT D Total Evaluation (07/29/2013 3:10 PM EDT) P athologist Signature 25-OH Vit D 31 30 - 100 CERNER Total ng/mL [facility] Comment: Deficient <10 ng/mL Insufficient 10 to 29 ng/mL Sufficient 30 to 100 ng/mL Potential Intoxication >100 ng/mL According to the [place] National Osteoporosi s Foundation, Vitamin D concentrations >30 ng/mL are sufficient to protect bone health. ??The National Kidney Foundation has similarly stated that pat ients with Vitamin D concentrations <30ng/mL should be considered to be insu fficient or deficient. http://www.kidney.org/professionals/KDOQ I/guidelines_bone/Guide7.htm http://nof.org/files/nof/public/content/ clinicalupdates/clinicalupdates/Issue2 5VitaminD/2012_VitaminD.html The IDS iSYS Vitamin D Immunoassay detec ts both 25-OH Vitamin D2 and 25-OH Vitamin D3, but only a total Vitamin D c oncentration is reported. Specimen Anatomical Collection Method Collection Time Receive d Time (Source) Location / / Volume Laterality Blood specimen 07/29/2013 3:10 PM 014 3:15 (specimen) EDT PM EDT Resulting Agency Comment Spec In Lab Alvino Smith MD CHEMISTRY ORDERABLES Performing Organization Address City/[facility]/ZIP [facility] Phon e Number [address] CERNER MILLENNIUM Comprehensive metabolic panel (non-fasting) (07/29/2013 3:10 PM EDT) P athologist Signature Glucose Lvl 80 60 - 199 CERNER mg/dL MILLENNIUM Comment: Diabetes: >=200 mg/dL plus symp toms BUN 11 8 - 18 mg/dL CERNER MILLENNIUM Creatinine 0.87 0.70 - 1.20 mg/dL CERNER MILL ENNIUM Comment: Please note that the pediatric reference intervals supplied above were not validated at [facility]. Results from pediatri c patients should be interpreted in conjunction to the patient's age, height and muscle mass. Sodium 137 135 - 145 mmol/L CERNER HALIE NIUM Potassium 3.5 3.5 - 5.0 mmol/L CERNER HALIE NIUM Comment: Please note: ??Patients with WBC >100,00 0 may have falsely elevated Potassium levels. ??For accurate Potassium quantif ication in these patients send serum separator tube (gold top) for subsequent determinations. ??Contact the Clinical Chemistry Laboratory if there are any qu estions. Chloride 100 98 - 107 mmol/L CERNER MILLENN IUM CO2 26 22 - 31 mmol/L CERNER MILLENNI UM Anion Gap 11 5 - 15 mmol/L CERNER MILLENNIU M Calcium 9.2 8.5 - 10.5 mg/dL CERNER HALIE NIUM Total Protein 7.2 6.4 - 8.3 gm/dL CERNER MIL LENNIUM Albumin 4.7 3.2 - 5.2 gm/dL CERNER MILLENN IUM AST 19 0 - 30 unit/L CERNER MILLENNIU M ALT 16 0 - 30 unit/L CERNER MILLENNIU M Alk Phos 50 40 - 104 unit/L CERNER MILLENN IUM Total Bilirubin 0.2 0.2 - 1.3 mg/dL CERNER M ILLENNIUM Bili, Direct 0.1 0.0 - 0.3 mg/dL CERNER MILL ENNIUM Estimated GFR >60 >=60 CERNER MILLENNIU M Comment: This estimated GFR (eGFR) value was calc ulated using the MDRD equation which has been validated on patients between t he ages of 18 and 70. The MDRD should not be used to assess kidney function in patients < 18 years of age or in patients with extremes of body mass, or in patients with acute kidney failure. This value should be multiplied by 1.2 f or patients. For further information please copy and past e the following links into your internet browser. http://www.nkdep.nih.gov/lab-evaluation. shtml http://www.kidney.org/professionals/ Specimen Anatomical Collection Method Collection Time Receive d Time (Source) Location / / Volume Laterality Blood specimen 07/29/2013 3:10 PM 014 3:15 (specimen) EDT PM EDT Resulting Agency Comment Spec In Lab Alvino Smith MD CHEMISTRY ORDERABLES Performing Organization Address City/[facility]/ZIP Code Phon e Number [address] CERNER MILLENNIUM (ABNORMAL) Iron and TIBC (07/29/2013 3:10 PM EDT) Analysis Performed At Patho logist Time Signature Iron 110 30 - 150 CERNER mcg/dL MILLENNIUM TIBC 470 (H) 250 - 450 CERNER mcg/dL MILLENNIUM Iron Saturation 23 20 - 50 % CERNER MILLENNIUM Specimen Anatomical Collection Method Collection Time Receive d Time (Source) Location / / Volume Laterality Blood specimen 07/29/2013 3:10 PM 014 3:15 (specimen) EDT PM EDT Resulting Agency Comment Spec In Lab Alvino Smith MD CHEMISTRY ORDERABLES Performing Organization Address City/[facility]/ZIP [facility] Phon e Number [address] CERNER MILLENNIUM CBC (with Diff) (07/29/2013 3:10 PM EDT) P athologist Signature WBC 8.0 4.0 - 10.0 CERNER x10(3)/mcL MILLENNIUM RBC 4.29 3.93 - 5.22 CERNER x10(6)/mcL MILLENNIUM Hemoglobin 13.2 11.2 - 15.7 CERNER gm/dL MILLENNIUM Hematocrit 38.9 34.0 - 45.0 CERNER % MILLENNIUM MCV 90.7 79.0 - 94.0 CERNER fL MILLENNIUM MCH 30.8 26.6 - 32.2 CERNER pg MILLENNIUM MCHC 33.9 32.0 - 36.5 CERNER gm/dL MILLENNIUM Platelets 215 145 - 370 CERNER x10(3)/mcL MILLENNIUM RDWSD 42.0 35.0 - 46.0 CERNER fL MILLENNIUM RDWCV 12.7 10.9 - 14.4 CERNER % MILLENNIUM MPV 9.7 9.0 - 12.0 CERNER fL [facility] Specimen Anatomical Collection Method Collection Time Receive d Time (Source) Location / / Volume Laterality Blood specimen 07/29/2013 3:10 PM 014 3:15 (specimen) EDT PM EDT Resulting Agency Comment Spec In Lab Alvino Smith MD HEMATOLOGY ORDERABLES Performing Organization Address City/[facility] Code Phon e Number [address] [facility] Testosterone, total and free (07/29/2013 3:10 PM EDT) athologist Signature Testo Total 10 2 - 45 CERNER ng/dL [facility] Comment: For more information on this test, go to http://education.StemPath/fa q/ TotalTestosteroneLCMSMS Testo Free 0.7 0.1 - 6.4 pg/mL [facility] Comment: Test Performed by Ayaan Chow, [employer] [facility], [address] [place] [address] 2014 03 Te Gray M.D., Ph.D., Director of Laboratories , [facility] [id number] Specimen Anatomical Collection Method Collection Time Receive d Time (Source) Location / / Volume Laterality Blood specimen 07/29/2013 3:10 PM 014 3:48 (specimen) EDT PM EDT Resulting Agency Comment Spec In Lab Alvino Smith MD CHEMISTRY ORDERABLES Performing Organization Address City/[facility] Phon e Number [address] [facility] Cortisol (07/29/2013 3:10 PM EDT) P athologist Signature Cortisol 8.8 mcg/dL [facility] Comment: Reference ranges: ??AM (7-10am): ??6.2-19.4 mcg/dL ??PM (4-8pm): ??2.3-12.3 mcg/dL Specimen Anatomical Collection Method Collection Time Receive d Time (Source) Location / / Volume Laterality Blood specimen 07/29/2013 3:10 PM 014 3:15 (specimen) EDT PM EDT Resulting Agency Comment Spec In Lab Alvino Smith MD CHEMISTRY ORDERABLES Performing Organization Address [facility] Phon e Number [address] CERNER MILLENNIUM (ABNORMAL) ACTH (07/29/2013 3:10 PM EDT) athologist Signature ACTH <5 (L) 6 - 50 CERNER pg/mL MILLENNIUM Comment: Reference range applies only to specimen s collected between 7-10am. Test Performed by [facility], [employer] [facility], [address] [place] [address] 2014 1 Te Gray M.D., Ph.D., Director of Laboratories , [facility] [id number] Specimen Anatomical Collection Method Collection Time Receive d Time (Source) Location / / Volume Laterality Blood specimen 07/29/2013 3:10 PM 014 3:32 (specimen) EDT PM EDT Resulting Agency Comment Spec In Lab Alvino Smith MD CHEMISTRY ORDERABLES Performing Organization Address City/[facility] [place] [address] CERNER MILLENNIUM T4, free (07/29/2013 3:10 PM EDT) athologist Signature Free T4 1.26 0.90 - 1.60 CERNER ng/dL MILLENNIUM Specimen Anatomical Collection Method Collection Time Receive d Time (Source) Location / / Volume Laterality Blood specimen 07/29/2013 3:10 PM 014 3:15 (specimen) EDT PM EDT Resulting Agency Comment Spec In Lab Alvino Smith MD CHEMISTRY ORDERABLES Performing Organization Address City/[facility]/[place] [address] CERNER MILLENNIUM TSH (07/29/2013 3:10 PM EDT) athologist Signature TSH 1.13 0.27 - 4.20 CERNER mcIU/mL MILLENNIUM Specimen Anatomical Collection Method Collection Time Receive d Time (Source) Location / / Volume Laterality Blood specimen 07/29/2013 3:10 PM 014 3:15 (specimen) EDT PM EDT Resulting Agency Comment Spec In Lab Alvino Smith MD CHEMISTRY ORDERABLES Performing Organization Address City/State/ZIP Code Phon e Number [address] CERNER MILLENNIUM Insulin Like GF-1 (07/29/2013 3:10 PM EDT) athologist Signature IgF-1 223 78 - 270 CERNER ng/mL [facility] Comment: Please note that as of 05/04/2013 the Clin ical Chemistry Laboratory at [facility] has been performing the IGF-1 assay. This ch lisandro in testing location is accompanied by a change in reference intervals. Gender ?Robbie Stage ?IGF-1 [Arben atomedin-C](ng/mL) Male ?I ?81-25 5 Male ? II ?106-43 2 Male ?III ?245-51 1 Male ? IV ?223-57 8 Male ?V ?227-5 18 Female ?I ?86-323 Female ? II ?118-451 Female ?III ?258-529 Female ? IV ?224-586 Female ?V ?188-51 2 IGF-1 [Somatomedin-C] Robbie Stage infor mation from a cohort of 854 healthy children (including normal heigh t and weight) were collected and analyzed on the IDS assay. ??All childre n were examined by an experienced physician and the pubertal stage was def ined according to Robbie. Specimen Anatomical Collection Method Collection Time Receive d Time (Source) Location / / Volume Laterality Blood specimen 07/29/2013 3:10 PM 014 3:15 (specimen) EDT PM EDT Resulting Agency Comment Spec In Lab Alvino Smith MD CHEMISTRY ORDERABLES Performing Organization Address City/[facility]/ZIP Code Phon e Number [address] CERNER MILLENNIUM Prolactin (07/29/2013 3:10 PM EDT) athologist Signature Prolactin 11.0 4.8 - 23.3 CERNER ng/mL MILLENNIUM Specimen Anatomical Collection Method Collection Time Receive d Time (Source) Location / / Volume Laterality Blood specimen 07/29/2013 3:10 PM 014 3:15 (specimen) EDT PM EDT Resulting Agency Comment Spec In Lab Alvino Smith MD CHEMISTRY ORDERABLES Performing Organization Address City/[facility]/ZIP [facility] Phon e Number [address] CERNER MILLENNIUM documented in this encounter Visit Diagnoses Diagnosis Hirsutism Chronic fatigue Other malaise and fatigue Postural hypotension Orthostatic hypotension Amenorrhea Absence of menstruation Barrington-Danlos syndrome type III Barrington-Danlos syndrome documented in this encounter Care Teams [employer] Relationship Specialty Start Date End Date Chris Avalos MD PCP - General 02/20/10 02/04/21 [address] [place] [address] documented as of this encounter
--- OUTSIDE RECORDS SUMMARY | 2022-02-11 10:49 | XMS_ITS | Encounter Summary ---
:1985 Author Organization [facility] [place] [address] Care Team Providers Name Role Phone Chris Avalos MD Primary Care Provider Reason for Referral Consultation (Routine) - Closed Specialty Diagnoses / Procedures Referred By Contact Refer red To Contact Endocrinology Diagnoses Cystic disease of ovaries Danay Milligan [facility] [address] [place] [address] [facility]ET[facility] CHILD Phone: [place] [address] Referral ID Status Reason Start Date Expiration Date Visits V isits Requested Authorized [id number] Closed Consult, 05/20/2013 11/16/2013 1 1 Test & Treat Consultation (Routine) - Closed Specialty Diagnoses / Procedures Referred By Contact Refer red To Contact Pain Management Diagnoses Barrington-Danlos syndrome type III Danay Milligan MD [facility] [address] [place] [address] [place] [address] Referral ID Status Reason Start Date Expiration Date Visits V isits Requested Authorized [id number] Closed Consult, 05/20/2013 11/16/2013 1 1 Test & Treat Reason for Visit Reason Comments Follow-up Encounter Details Date Type Department Care Team Description 05/20/2013 Follow-Up Genetics at [facility] Danay Milligan, Barrington-Danlos syndrome type III (Primary Dx); [facility] [place]ystic [place] [address] [facility] DEVELOP[facility] [place], [place] [address] (Wo rk) Social History Tobacco Use Types Packs/Day Years Used Date Smoking Tobacco: Every Day Cigarettes 1 Alcohol Use Standard Drinks/Week Comments Not Asked 0 (1 standard drink = 0.6 oz pure alcoho l) Sex Assigned at Date Recorded Not on file documented as of this encounter Last Filed Vital Signs Vital Sign Reading Time Taken Comments Blood Pressure 140/70 05/20/2013 12:58 PM EST Pulse - - Temperature - - Respiratory Rate - - Oxygen Saturation - - Inhaled Oxygen Concentration - - Weight 63.7 kg (140 lb 6.9 oz) 05/20/2013 12:58 PM EST Height 173.5 cm (5' 8.31) 05/20/2013 12:58 PM EST Body Mass Index 21.16 05/20/2013 12:58 PM EST documented in this encounter Patient Instructions Patient InstructionsJerilyn Ferrara, MS - 05/20/2013 1:08 PM EST Casie is a 27 y.o. 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 Physical examination previously noted a Beighton scale score of 7/9. Scores of 5 or greater confirm hypermobility. 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 The following additional signs and symptoms can be attributed to and further supportthis patient's diagnosis: joint dislocations/subluxations, chronic pain, neurogenic pain, gastrointestinal dysfunction, easy bruising, prolonged bleeding, and orthostatic hypotension. We spent time today reviewing this diagnosis and its medical management. The patient was provided with a copy of the [employer] article and was referred to the Barrington-Danlos [employer] website (www.ednf.org) for additional information and support. A portion of the [employer]Review[employer] article pertaining to appropriate management is included below. 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 This is not related to her diagnosis of Barrington- Danlos syndrome, type III. A referral to reproductive endocrinology was entered for evaluation of possible PCOS. Due to Casie's chronic pain, which is due to her diagnosis of Barrington-Danlos syndrome, type III, a referral to the Pain Clinic was also entered. Recommendations discussed today given patient's diagnosis of Barrington-Danlos syndrome, hypermobile type: 1. Vitamin D and Calcium supplementation 2. DEXA scan can be completed locally to establish baseline bone density. 3. Echocardiogram was reportedly normal and does not need to be repeated. 4. Physical therapy following guidelines as described in EDS GeneReview[employer] article (see http://www.ncbi.nlm.nih.gov/books/IAN3236/ for full article) 5. A referral to reproductive endocrinology was entered due to Casie's history of cystic ovaries and current symptoms of facial hair and night sweats. 6. A referral to the Pain Clinic was entered to discuss pain management with regard to her diagnosisof EDS, type III. Genetic Counselor involved in case: Jerilyn Ferrara MS, [facility] [place] Certified Genetic Counselor [phone] EM: [email or web address] From GeneReviews article of EDS, hypermobility type (http://www.ncbi.nlm.nih.gov/books/HFA0233/): Management Evaluations Following Initial Diagnosis: To establish the extent of disease in an individual diagnosed with Barrington-Danlos syndrome (EDS), hypermobility type, the following evaluations are recommended: ?? Thorough history and physical examination, especially for musculoskeletal, skin, cardiovascular, gastrointestinal, and oral/dental manifestations ?? Assessment of prior experience with pharmacologic, mechanical, and/or surgical treatment of pain and joint instability, as well as current degree of pain and disability ?? Baseline echocardiogram to evaluate aortic root diameter, as adjusted for age and body surface area [Danie et al 1989]. Significant aortic enlargement and/or other cardiac abnormalities should prompt consideration of alternative diagnoses. ?? The following evaluations should not be routine, but may be appropriate in some situations: ?? For individuals with significant orthostatic intolerance and/or tachycardia, tilt-table testing to help confirm postural orthostatic tachycardia and/or neurally-mediated hypotension. It is sometimesappropriate to rule out adrenocortical insufficiency. ?? If irritable bowel syndrome is suspected, consideration of formal gastroenterology consultation and possible endoscopy to rule out other treatable diagnoses. Celiac disease, inflammatory bowel disease, and other causes of malabsorption or bowel dysfunction are not associated with EDS, but may be kiesha xisting diagnoses. ?? Dual-energy x-ray absorptiometry (DEXA) at any age if height loss greater than one inch is documented or x-rays are suggestive of osteopenia. Women should have their first study no later than menopause. It is unclear if or at what age men without height loss or abnormal x-rays should have a screening DEXA. ?? If a history of severe or prolonged bleeding is present, consideration of hematologic evaluation for von Willebrand disease, thrombocytopenia, or other bleeding diathesis. Although pathophysiologically unrelated, these conditions may coexist with hypermobility type EDS and exacerbate the hematologic manifestations. ?? For individuals with significant pain and/or fatigue, screening for and correction of other potential causes, including (but not limited to) vitamin D deficiency, vitamin B12 deficiency, folate deficiency, iron deficiency, celiac disease, or hypothyroidism ?? If there is suspicion of Chiari malformation, consideration of cerebral MRI, possibly with CSF flow studies ?? Medical genetics consultation if there is uncertainty about the diagnosis or for assistance in evaluation and management Treatment of Manifestations Physical Therapy: ?? Myofascial release (any physical therapy modality that reduces spasm) provides short-term relief of pain, lasting hours to days. While the duration of benefit is short and it must be repeated frequently, this pain relief may be critical to facilitate participation in toning exercise for stabilization of the joints. Modalities must be tailored to the individual; a partial list includes heat, cold, massage, ultrasound, electrical stimulation, acupuncture, acupressure, biofeedback, and conscious relaxation. ?? Low-resistance muscle toning exercise can improve joint stability and reduce future subluxations,dislocations, and pain. See Prevention of Primary Manifestations. ?? Transvaginal pelvic physical therapy and myofascial release (in which massage or ultrasound is applied to the pelvic musculature via a transvaginal approach) may improve dyspareunia, abdominal pain,back pain, and sometimes radicular lower-extremity pain. Assistive Devices: ?? Braces are useful to improve joint stability. Orthopedists, rheumatologists, and physical therapists can assist in recommending appropriate devices for commonly problematic joints such as knees and ankles. Shoulders and hips present more of a challenge for external bracing. Occupational therapists may be consulted for ring splints (to stabilize interphalangeal joints) and wrist or wrist/thumb braces in affected individuals with small joint instability. A soft neck collar, if tolerated, may help with neck pain and headaches. ?? A wheelchair or scooter may be necessary to offload stress on lower extremity joints. Special wheelchair customizations such as lightweight and/or motorized chairs, seat pads, and specialized wheelsand wheel grasps may be necessary to accommodate pelvic and upper extremity issues. Crutches, canes,and walkers should be used cautiously as they may put increased stress on the upper extremities. ?? A waterbed, adjustable air mattress, or viscoelastic foam mattress (and/or pillow) may provide increased support with improved sleep quality and less pain. Pain Medication: ?? Pain medication is frequently underprescribed, and should be tailored to the individual's subjective symptoms and objective measures of pain, not to physical examination or radiologic findings. Individuals with mild to moderate pain may get sufficient relief from as-needed use. Those with more significant pain typically require higher doses and combinations of multiple medications. Prevention or control of pain with regularly scheduled dosing is often more successful than acute treatment with as-needed dosing. Many clinicians recruit a paint booth operator, but pain can be managed by the primary physician if desired. ?? Note: All of the following dose recommendations are for adults without hepatic or renal disease; adjustments may be necessary for other populations. ?? Acetaminophen, 4000 mg in three or four divided doses, will not completely alleviate pain but is a useful and well-tolerated adjunct in combination with other agents. Acetaminophen is often present in combination with other analgesic medications and cold/flu preparations, and careful attention should be paid to the total daily dose to avoid exceeding 4000 mg/day. ?? NSAIDs (nonsteroidal anti-inflammatory drugs) (e.g., ibuprofen, naproxen, meloxicam, nabumetone) should be titrated to the maximum dose or as tolerated by upper gastrointestinal symptoms. NSAIDs areparticularly useful for arthralgia, myalgia, and secondary inflammatory conditions (e.g. bursitis, tendinitis, costochodritis, or post-dislocation pain). Bruising is not a contraindication to NSAID therapy, but occasionally requires dose reduction or change to a Gallagher-2 inhibitor. ?? Gallagher-2 inhibitors (e.g. celecoxib) in maximal doses are no stronger than dose- equivalent NSAIDS, but may be better tolerated and thus more effective. ?? Tramadol can be added to acetaminophen plus an NSAID or Gallagher-2 inhibitor before resorting to opioids. Nausea is the most common side effect. ?? Topical lidocaine as a cream or patch is sometimes useful for localized areas of pain. Topical capsaicin is of questionable utility, but is safe. ?? Skeletal muscle relaxants are useful in combination with all of the above to treat myofascial spasm. They are also sometimes helpful in treating neuropathic pain. Metaxalone may be the least sedating, but all are potentially limited by sedation. ?? Tricyclic antidepressants are often effective for neuropathic pain, with additional benefits of mild sedation (for those with sleep disturbance) and a little mood elevation. Constipation, a common side effect, can be managed with fluids, fiber, stool softeners, and laxatives. For those with diarrhea- predominant irritable bowel syndrome, the constipating effect may be therapeutic. Typical doses arenortriptyline (25-150 mg) or trazadone (50-300 mg) every evening. ?? Serotonin/norepinephrine receptor inhibitors (SNRIs), such as venlafaxine, desvenlafaxine, duloxetine, and milnacipran also offer combined benefit for depression and neuropathic pain. Venlaxafine may raise the blood pressure a few points, which potentially could be helpful for individuals with neurally mediated hypotension. ?? Some anti-seizure medications are also effective for neuropathic pain and can be used in additionto tricyclic and/or SNRI antidepressants. All require gradual titration before reaching therapeutic levels. Gabapentin should be titrated as tolerated up to at least 1200 mg three times daily before declaring failure, but is often limited by sedation and/or gastrointestinal side effects. Pregabalin can be dosed twice or three times daily up to a total daily dose of at least 300 mg, and tends to be better tolerated than gabapentin. Topiramate and lamotrigine have also been used successfully. ?? Short courses of steroids can be very effective for controlling acute flares of pain associated with secondary inflammation. EDS is not an intrinsically inflammatory condition, and there is no role for chronic steroid use. ?? Opioids are effective for both myofascial pain and neuropathic pain, but should be reserved for use after failing the above medications. They should be administered in conjunction with all of the above, except tramadol, in order to minimize total opioid requirements. Since they are typically used chronically (or at least several months), the primary formulation should be long acting (e.g., sustained-release oxycodone or morphine or topical fentanyl patch) with short-acting forms of the same drug used as needed for breakthrough pain. Routine use of two or more daily doses of a short-acting form should prompt an increase in the long-acting dose or another adjustment to the pain regimen. ?? Supplemental magnesium and/or potassium anecdotally may provide some muscle relaxation and pain relief. Diarrhea, nausea, and sedation are the most common side effects. Specific validated dose recommendations do not exist. ?? Glucosamine and chondroitin may help to prevent or treat osteoarthritis in the general population. They have not been studied specifically in EDS, but are not contraindicated. Medication precautions: ?? It is critically important to evaluate all potential sources of acetaminophen and assure that total daily use does not exceed 4000 mg. ?? Abrupt cessation of anti-seizure medications can precipitate a seizure. When discontinuing, they should be tapered gradually. ?? Chronic opioid use can result in dependency with escalating dose requirements and diminishing effect. Narcotic bowel syndrome can also develop, and may be confused with irritable bowel syndrome. ?? Serotonin syndrome can occur when combining multiple serotonergic medications, such as tramadol, tricyclic antidepressants, SNRI antidepressants, anti-seizure medications, and opiods. Symptoms and signs may include agitation, restlessness, tremor, hyperreflexia, ataxia, confusion, irritability, nausea, diarrhea, hyperthermia, tachycardia, hyper/hypotension and/or diaphoresis. Severity can range from mild to life-threatening. Many of these manifestations overlap those associated with EDS, making diagnosis difficult. Some individuals find mild to moderate serotonergic symptoms acceptable in order to achieve adequate pain control. Surgery and Other Procedures: ?? Many individuals will have undergone several orthopedic procedures prior to diagnosis. These often include joint debridement, tendon relocations, capsulorraphy, and arthroplasty. The degree of stabilization and pain reduction, overall patient satisfaction, and duration of improvement are variable, but usually less than in individuals without EDS [Rahul et al 2003, Sherie et al 2004, Everardo et [id number]]. In general, orthopedic surgery should be delayed in favor of physical therapy and bracing. When surgery is performed, the affected individual and physician should cautiously anticipate some improvement but expect less than optimal results. There is one report of long-term improvement in shoulder stability with Achilles tendon allograft reconstruction of the joint capsule in an individual withEDS, hypermobility type [Hector et al 2012]. It is not yet known if this approach will be successful in other affected individuals. Unlike the classic and vascular types of EDS, the hypermobility typ e is not associated with increased risk for perioperative skin and soft tissue complications. ?? Prolotherapy, in which saline and/or other irritants are injected in tendons or around joints to induce scar formation and increase stability, has not been objectively studied. It is probably safe and probably subject to the same limitations as orthopedic surgery. ?? Anesthetic/corticosteroid injections for localized areas of pain and acute inflammation are oftenhelpful, but cannot be repeated indefinitely; dry needling without injection of any material sometimes provides similar benefit. ?? Anesthetic nerve blocks can provide temporary relief of neuropathic pain. These are sometimes followed by surgical nerve root destruction and/or implantable stimulators (sensory or motor), with variable results. ?? Constant intrathecal delivery of anesthetic and/or opioid medication may reduce the need for oral/systemic medications, but should only be considered as a last resort. Bone Density ?? Therapy is the same as for any other individual with low bone density. Simple weight-bearing exercise, such as walking or use of an elliptical workplace trainer and assessor, should not be overlooked as a means to help maintain bone density as well as improve resting muscle tone. Hematologic: ?? Easy and spontaneous bruising does not require treatment, and does not require avoidance of NSAIDs. ?? For severe bleeding (e.g., epistaxis, menometrorrhagia) or operative prophylaxis, desmopressin acetate (ddAVP) is often beneficial [Avne & Madhavi 1997, Sol et al 2009]. Gastrointestinal: ?? Gastritis and reflux symptoms may require intensive therapy, including proton pump inhibitor twice daily before meals, high-dose H2-romana at bedtime (e.g., famotidine 20-40 mg or ranitidine 150-300 mg), sucralfate one gram four times daily, and pfwj-thh-hwfbalz acid-neutralizing agents. Other treatable causes, such as H. pylori infection, should be investigated. Upper endoscopy is indicated for resistant symptoms, but frequently is normal other than chronic gastritis. ?? Delayed gastric emptying should be identified if present and treated as usual with promotility agents (e.g., erythromycin, metoclopramide). ?? Irritable bowel syndrome is treated as usual with antispasmodics, antidiarrheals, and laxatives as needed. Lubiprostone is a motility enhancer that may be helpful for those with constipation only. Tricyclic antidepressants may be especially helpful for persons with both neuropathic pain and diarrhea. Cardiovascular: ?? Beta-blockade is rarely necessary, but should be considered for progressive aortic enlargement. Rarely, severe enlargement (>4.5-5.0 cm) requires surgical evaluation. ?? Neurally mediated hypotension and postural orthostatic tachycardia are treated as usual, with avoidance of sudden postural change, consideration of lower extremity and/or abdominal compression garments, exercise to increase muscle tone, supplementation of sodium and water to expand the blood volume, and sometimes pharmacologic treatment with beta-blockers, midodrine, fludrocortisone, and/or other medications [Becky et al 2012]. Dental: ?? Orthodontic and palatal corrections may tend to relapse, requiring prolonged use of a retainer. ?? Periodontal disease should be identified and treated. ?? Temporomandibular joint laxity and dysfunction are difficult to treat. There are no specific interventions of proven benefit. Intra-oral devices are sometimes helpful. Oral rest (minimization of chewing and talking), local myofascial release, and muscle relaxant medications may be beneficial for acute flares. Surgical intervention is often disappointing and should be considered only as a last resort. Psychiatric: ?? Validation of the affected individual's symptoms can be immensely helpful, as many with EDS, hypermobility type have been accused of malingering or diagnosed with primary psychiatric disorders by previous physicians. ?? Establishing trust, rapport and a supportive relationship between patient and provider is important. Emphasis should be placed on chronic, rather than acute, pain management. Distraction and hypnosis are often helpful [Godwin et al 2011]. ?? Depression is a common result of the chronic pain, disability, and other complications. Psychological and/or pain-oriented counseling can improve adaptation to and acceptance of these issues and thenecessary physical limitations. Cognitive behavioral therapy can be particularly beneficial, but requires active patient participation [Margie et al 2011]. Antidepressants are also of great benefit. Many individuals initially resist a diagnosis of or therapy for depression because of concern that their problems are being written off as purely psychiatric. ?? Consumer support groups are available and can be very beneficial. Prevention of Primary Manifestations: ?? Improved joint stability may be achieved by low-resistance exercise to increase muscle tone (subconscious resting muscle contraction, as opposed to voluntarily recruited muscle strength). Emphasis should be placed on both core and extremity muscle tone. Examples include walking, bicycling, low-impact aerobics, swimming or water exercise, and simple bwsor-nz-zknvnm exercise without added resistance. Core toning activities, such as balance exercises and repetitive motions focusing on the abdominal,lumbar, and interscapular muscles, are also important. Progress should be made by increasing repetitions, frequency, or duration, not resistance. It often takes months or years for significant progressto be recognized. ?? Wide regional economist writing utensils can reduce strain on finger and hand joints. An unconventional grasp of a writing utensil, gently resting the shaft in the web between the thumb and index finger and securing the tip between the distal interphalangeal joints or middle phalanges of the index and third fingers (rather than using the tips of the fingers), results in substantially reduced axial stress to theinterphalangeal, metacarpophalangeal, and carpometacarpal joints. These adjustments frequently result in marked reduction of pain in the index finger and at the base of the thumb. Prevention of Secondary Complications: ?? Calcium (500-600 mg twice daily), vitamin D (400 or more units daily), and low-impact weight bearing exercise should be encouraged to maximize bone density. Surveillance: ?? DEXA should be repeated every other year if bone loss is confirmed. ?? Annual echocardiography is not necessary in those with a normal initial echocardiogram [Aries et al 2011]. In children and adolescents with a normal aortic root diameter, it is the author's practice to repeat every two to three years until young adulthood (age ~25 years). If the aortic root diameter is increased or accelerating faster than body surface area, more frequent monitoring is appropriate. In adults with a normal aortic root diameter, no further monitoring is needed. Agents/Circumstances to Avoid: ?? Joint hyperextension must be avoided. Individuals with EDS, hypermobility type usually need to beeducated about the normal range of joint extension and cautioned not to exceed it. ?? Resistance exercise can exacerbate joint instability and pain. Elastic resistance bands should beused with caution, if at all. In general, it is preferable to increase the number of repetitions of exercise rather than to increase the resistance. ?? Isometric exercise can also be problematic if too much force (resistance) is applied. ?? High-impact activity increases the risk for acute subluxation/dislocation, chronic pain, and osteoarthritis. Some sports, such as football, are therefore contraindicated. However, most sports and activities are acceptable with appropriate precautions. ?? Chiropractic adjustment is not strictly contraindicated, but must be performed cautiously to avoid iatrogenic subluxations or dislocations. ?? Crutches, canes, and walkers should be used cautiously as they may put increased stress on the upper extremities. documented in this encounter Progress Notes Danay Milligan MD - 05/20/2013 1:05 PM EST Subjective: Patient ID: Casie Wild is a 27 y.o. female. HPI Comments: Casie is a 27 y.o. 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 She complains of increased pain over the past year. She also states that she has had intermittent night sweats with no known etiology over the past year. She also notices increased spider veins on her legs and chronic fatigue. Review of Systems Constitutional: Orthostatic hypotension Night sweats Fatigue HENT: Negative for nosebleeds. Eyes: Negative for visual disturbance. Cardiovascular: ECHO - reportedly normal Gastrointestinal: Irritable bowel syndrome Genitourinary: Ruptured ovarian cyst Musculoskeletal: Dislocations Joint laxity Skin: Wound healing normal Dry skin Neurological: Positive for seizures (At least one seizure). Hematological: Bruises/bleeds easily. Varicose veins Spider veins Psychiatric/Behavioral: Positive for sleep disturbance (Insomnia) and dysphoric mood. The patient isnervous/anxious. ADD All other systems reviewed and are negative. Objective: Physical Exam Nursing note and vitals reviewed. Constitutional: She appears well-developed and well-nourished. HENT: Head: Normocephalic and atraumatic. Right Ear: External ear normal. Left Ear: External ear normal. Nose: Nose normal. Mouth/Throat: Oropharynx is clear and moist. Eyes: EOM are normal. Neck: Normal range of motion. Neck supple. Cardiovascular: Normal rate and regular rhythm. No murmur heard. Pulmonary/Chest: Effort normal. No respiratory distress. Mild asymmetry of chest wall Abdominal: Soft. She exhibits no mass. No tenderness. Musculoskeletal: Hypermobility of joints Beighton scale of hypermobility: Score of five or more on the nine-point Beighton scale (Beighton etal 1973) confirms joint hypermobility. One point is scored for each of the following: Passive dorsiflexion of each fifth finger greater than 90 degrees.(2) Passive apposition of each thumb to the flexor surface of the forearm (2) Hyperextension of each elbow greater than 10 degrees.(0) Hyperextension of each knee greater than 10 degrees.(2) Ability to place the palms on the floor with the knees fully extended.(1) Total=7/9=hypermobility Mild asymmetry of her back Neurological: She is alert. She has normal reflexes. No cranial nerve deficit. She exhibits normal muscle tone. Coordination normal. Skin: Skin is warm. Velvety soft skin Fairly normal wound healing Minimal telangiectasias (none mucosal) Mild varicose veins Mild striae Psychiatric: She has a normal mood and affect. Assessment and Plan: Casie is a 27 y.o. 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 Physical examination previously noted a Beighton scale score of 7/9. Scores of 5 or greater confirm hypermobility. 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 The following additional signs and symptoms can be attributed to and further supportthis patient's diagnosis: joint dislocations/subluxations, chronic pain, neurogenic pain, gastrointestinal dysfunction, easy bruising, prolonged bleeding, and orthostatic hypotension. We spent time today reviewing this diagnosis and its medical management. The patient was provided with a copy of the [employer] article and was referred to the Barrington-Danlos [employer] website (www.ednf.org) for additional information and support. A portion of the [employer] article pertaining to appropriate management is included below. 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 This is not related to her diagnosis of Barrington- Danlos syndrome, type III. A referral to reproductive endocrinology was entered for evaluation of possible PCOS. Due to Casie's chronic pain, which is due to her diagnosis of Barrington-Danlos syndrome, type III, a referral to the Pain Clinic was also entered. Recommendations discussed today given patient's diagnosis of Barrington-Danlos syndrome, hypermobile type: 1. Vitamin D and Calcium supplementation 2. DEXA scan can be completed locally to establish baseline bone density. 3. Echocardiogram was reportedly normal and does not need to be repeated. 4. Physical therapy following guidelines as described in EDS [employer] article (see http://www.ncbi.nlm.nih.gov/books/ALC1037/ for full article) 5. A referral to reproductive endocrinology was entered due to Casie's history of cystic ovaries and current symptoms of facial hair and night sweats. 6. A referral to the Pain Clinic was entered to discuss pain management with regard to her diagnosisof EDS, type III. 45 minutes of my 60 minute encounter with this family was spent in face to face counseling regardingEDS III. From [employer] article of EDS, hypermobility type (http://www.ncbi.nlm.nih.gov/books/BWG5542/): Management Evaluations Following Initial Diagnosis: To establish the extent of disease in an individual diagnosed with Barrington-Danlos syndrome (EDS), hypermobility type, the following evaluations are recommended: ?? Thorough history and physical examination, especially for musculoskeletal, skin, cardiovascular, gastrointestinal, and oral/dental manifestations ?? Assessment of prior experience with pharmacologic, mechanical, and/or surgical treatment of pain and joint instability, as well as current degree of pain and disability ?? Baseline echocardiogram to evaluate aortic root diameter, as adjusted for age and body surface area [Danie et al 1989]. Significant aortic enlargement and/or other cardiac abnormalities should prompt consideration of alternative diagnoses. ?? The following evaluations should not be routine, but may be appropriate in some situations: ?? For individuals with significant orthostatic intolerance and/or tachycardia, tilt-table testing to help confirm postural orthostatic tachycardia and/or neurally-mediated hypotension. It is sometimesappropriate to rule out adrenocortical insufficiency. ?? If irritable bowel syndrome is suspected, consideration of formal gastroenterology consultation and possible endoscopy to rule out other treatable diagnoses. Celiac disease, inflammatory bowel disease, and other causes of malabsorption or bowel dysfunction are not associated with EDS, but may be kiesha xisting diagnoses. ?? Dual-energy x-ray absorptiometry (DEXA) at any age if height loss greater than one inch is documented or x-rays are suggestive of osteopenia. Women should have their first study no later than menopause. It is unclear if or at what age men without height loss or abnormal x-rays should have a screening DEXA. ?? If a history of severe or prolonged bleeding is present, consideration of hematologic evaluation for von Willebrand disease, thrombocytopenia, or other bleeding diathesis. Although pathophysiologically unrelated, these conditions may coexist with hypermobility type EDS and exacerbate the hematologic manifestations. ?? For individuals with significant pain and/or fatigue, screening for and correction of other potential causes, including (but not limited to) vitamin D deficiency, vitamin B12 deficiency, folate deficiency, iron deficiency, celiac disease, or hypothyroidism ?? If there is suspicion of Chiari malformation, consideration of cerebral MRI, possibly with CSF flow studies ?? Medical genetics consultation if there is uncertainty about the diagnosis or for assistance in evaluation and management Treatment of Manifestations Physical Therapy: ?? Myofascial release (any physical therapy modality that reduces spasm) provides short-term relief of pain, lasting hours to days. While the duration of benefit is short and it must be repeated frequently, this pain relief may be critical to facilitate participation in toning exercise for stabilization of the joints. Modalities must be tailored to the individual; a partial list includes heat, cold, massage, ultrasound, electrical stimulation, acupuncture, acupressure, biofeedback, and conscious relaxation. ?? Low-resistance muscle toning exercise can improve joint stability and reduce future subluxations,dislocations, and pain. See Prevention of Primary Manifestations. ?? Transvaginal pelvic physical therapy and myofascial release (in which massage or ultrasound is applied to the pelvic musculature via a transvaginal approach) may improve dyspareunia, abdominal pain,back pain, and sometimes radicular lower-extremity pain. Assistive Devices: ?? Braces are useful to improve joint stability. Orthopedists, rheumatologists, and physical therapists can assist in recommending appropriate devices for commonly problematic joints such as knees and ankles. Shoulders and hips present more of a challenge for external bracing. Occupational therapists may be consulted for ring splints (to stabilize interphalangeal joints) and wrist or wrist/thumb braces in affected individuals with small joint instability. A soft neck collar, if tolerated, may help with neck pain and headaches. ?? A wheelchair or scooter may be necessary to offload stress on lower extremity joints. Special wheelchair customizations such as lightweight and/or motorized chairs, seat pads, and specialized wheelsand wheel grasps may be necessary to accommodate pelvic and upper extremity issues. Crutches, canes,and walkers should be used cautiously as they may put increased stress on the upper extremities. ?? A waterbed, adjustable air mattress, or viscoelastic foam mattress (and/or pillow) may provide increased support with improved sleep quality and less pain. Pain Medication: ?? Pain medication is frequently underprescribed, and should be tailored to the individual's subjective symptoms and objective measures of pain, not to physical examination or radiologic findings. Individuals with mild to moderate pain may get sufficient relief from as-needed use. Those with more significant pain typically require higher doses and combinations of multiple medications. Prevention or control of pain with regularly scheduled dosing is often more successful than acute treatment with as-needed dosing. Many clinicians recruit a paint booth operator, but pain can be managed by the primary physician if desired. ?? Note: All of the following dose recommendations are for adults without hepatic or renal disease; adjustments may be necessary for other populations. ?? Acetaminophen, 4000 mg in three or four divided doses, will not completely alleviate pain but is a useful and well-tolerated adjunct in combination with other agents. Acetaminophen is often present in combination with other analgesic medications and cold/flu preparations, and careful attention should be paid to the total daily dose to avoid exceeding 4000 mg/day. ?? NSAIDs (nonsteroidal anti-inflammatory drugs) (e.g., ibuprofen, naproxen, meloxicam, nabumetone) should be titrated to the maximum dose or as tolerated by upper gastrointestinal symptoms. NSAIDs areparticularly useful for arthralgia, myalgia, and secondary inflammatory conditions (e.g. bursitis, tendinitis, costochodritis, or post-dislocation pain). Bruising is not a contraindication to NSAID therapy, but occasionally requires dose reduction or change to a Gallagher-2 inhibitor. ?? Gallagher-2 inhibitors (e.g. celecoxib) in maximal doses are no stronger than dose- equivalent NSAIDS, but may be better tolerated and thus more effective. ?? Tramadol can be added to acetaminophen plus an NSAID or Gallagher-2 inhibitor before resorting to opioids. Nausea is the most common side effect. ?? Topical lidocaine as a cream or patch is sometimes useful for localized areas of pain. Topical capsaicin is of questionable utility, but is safe. ?? Skeletal muscle relaxants are useful in combination with all of the above to treat myofascial spasm. They are also sometimes helpful in treating neuropathic pain. Metaxalone may be the least sedating, but all are potentially limited by sedation. ?? Tricyclic antidepressants are often effective for neuropathic pain, with additional benefits of mild sedation (for those with sleep disturbance) and a little mood elevation. Constipation, a common side effect, can be managed with fluids, fiber, stool softeners, and laxatives. For those with diarrhea- predominant irritable bowel syndrome, the constipating effect may be therapeutic. Typical doses arenortriptyline (25-150 mg) or trazadone (50-300 mg) every evening. ?? Serotonin/norepinephrine receptor inhibitors (SNRIs), such as venlafaxine, desvenlafaxine, duloxetine, and milnacipran also offer combined benefit for depression and neuropathic pain. Venlaxafine may raise the blood pressure a few points, which potentially could be helpful for individuals with neurally mediated hypotension. ?? Some anti-seizure medications are also effective for neuropathic pain and can be used in additionto tricyclic and/or SNRI antidepressants. All require gradual titration before reaching therapeutic levels. Gabapentin should be titrated as tolerated up to at least 1200 mg three times daily before declaring failure, but is often limited by sedation and/or gastrointestinal side effects. Pregabalin can be dosed twice or three times daily up to a total daily dose of at least 300 mg, and tends to be better tolerated than gabapentin. Topiramate and lamotrigine have also been used successfully. ?? Short courses of steroids can be very effective for controlling acute flares of pain associated with secondary inflammation. EDS is not an intrinsically inflammatory condition, and there is no role for chronic steroid use. ?? Opioids are effective for both myofascial pain and neuropathic pain, but should be reserved for use after failing the above medications. They should be administered in conjunction with all of the above, except tramadol, in order to minimize total opioid requirements. Since they are typically used chronically (or at least several months), the primary formulation should be long acting (e.g., sustained-release oxycodone or morphine or topical fentanyl patch) with short-acting forms of the same drug used as needed for breakthrough pain. Routine use of two or more daily doses of a short-acting form should prompt an increase in the long-acting dose or another adjustment to the pain regimen. ?? Supplemental magnesium and/or potassium anecdotally may provide some muscle relaxation and pain relief. Diarrhea, nausea, and sedation are the most common side effects. Specific validated dose recommendations do not exist. ?? Glucosamine and chondroitin may help to prevent or treat osteoarthritis in the general population. They have not been studied specifically in EDS, but are not contraindicated. Medication precautions: ?? It is critically important to evaluate all potential sources of acetaminophen and assure that total daily use does not exceed 4000 mg. ?? Abrupt cessation of anti-seizure medications can precipitate a seizure. When discontinuing, they should be tapered gradually. ?? Chronic opioid use can result in dependency with escalating dose requirements and diminishing effect. Narcotic bowel syndrome can also develop, and may be confused with irritable bowel syndrome. ?? Serotonin syndrome can occur when combining multiple serotonergic medications, such as tramadol, tricyclic antidepressants, SNRI antidepressants, anti-seizure medications, and opiods. Symptoms and signs may include agitation, restlessness, tremor, hyperreflexia, ataxia, confusion, irritability, nausea, diarrhea, hyperthermia, tachycardia, hyper/hypotension and/or diaphoresis. Severity can range from mild to life-threatening. Many of these manifestations overlap those associated with EDS, making diagnosis difficult. Some individuals find mild to moderate serotonergic symptoms acceptable in order to achieve adequate pain control. Surgery and Other Procedures: ?? Many individuals will have undergone several orthopedic procedures prior to diagnosis. These often include joint debridement, tendon relocations, capsulorraphy, and arthroplasty. The degree of stabilization and pain reduction, overall patient satisfaction, and duration of improvement are variable, but usually less than in individuals without EDS [Rahul et al 2003, Sherie et al 2004, Everardo et [id number]]. In general, orthopedic surgery should be delayed in favor of physical therapy and bracing. When surgery is performed, the affected individual and physician should cautiously anticipate some improvement but expect less than optimal results. There is one report of long-term improvement in shoulder stability with Achilles tendon allograft reconstruction of the joint capsule in an individual withEDS, hypermobility type [Hector et al 2012]. It is not yet known if this approach will be successful in other affected individuals. Unlike the classic and vascular types of EDS, the hypermobility typ e is not associated with increased risk for perioperative skin and soft tissue complications. ?? Prolotherapy, in which saline and/or other irritants are injected in tendons or around joints to induce scar formation and increase stability, has not been objectively studied. It is probably safe and probably subject to the same limitations as orthopedic surgery. ?? Anesthetic/corticosteroid injections for localized areas of pain and acute inflammation are oftenhelpful, but cannot be repeated indefinitely; dry needling without injection of any material sometimes provides similar benefit. ?? Anesthetic nerve blocks can provide temporary relief of neuropathic pain. These are sometimes followed by surgical nerve root destruction and/or implantable stimulators (sensory or motor), with variable results. ?? Constant intrathecal delivery of anesthetic and/or opioid medication may reduce the need for oral/systemic medications, but should only be considered as a last resort. Bone Density ?? Therapy is the same as for any other individual with low bone density. Simple weight-bearing exercise, such as walking or use of an elliptical workplace trainer and assessor, should not be overlooked as a means to help maintain bone density as well as improve resting muscle tone. Hematologic: ?? Easy and spontaneous bruising does not require treatment, and does not require avoidance of NSAIDs. ?? For severe bleeding (e.g., epistaxis, menometrorrhagia) or operative prophylaxis, desmopressin acetate (ddAVP) is often beneficial [Vane & Madhavi 1997, Sol et al 2009]. Gastrointestinal: ?? Gastritis and reflux symptoms may require intensive therapy, including proton pump inhibitor twice daily before meals, high-dose H2-romana at bedtime (e.g., famotidine 20-40 mg or ranitidine 150-300 mg), sucralfate one gram four times daily, and wmrt-[id number]-swepine acid-neutralizing agents. Other treatable causes, such as H. pylori infection, should be investigated. Upper endoscopy is indicated for resistant symptoms, but frequently is normal other than chronic gastritis. ?? Delayed gastric emptying should be identified if present and treated as usual with promotility agents (e.g., erythromycin, metoclopramide). ?? Irritable bowel syndrome is treated as usual with antispasmodics, antidiarrheals, and laxatives as needed. Lubiprostone is a motility enhancer that may be helpful for those with constipation only. Tricyclic antidepressants may be especially helpful for persons with both neuropathic pain and diarrhea. Cardiovascular: ?? Beta-blockade is rarely necessary, but should be considered for progressive aortic enlargement. Rarely, severe enlargement (>4.5-5.0 cm) requires surgical evaluation. ?? Neurally mediated hypotension and postural orthostatic tachycardia are treated as usual, with avoidance of sudden postural change, consideration of lower extremity and/or abdominal compression garments, exercise to increase muscle tone, supplementation of sodium and water to expand the blood volume, and sometimes pharmacologic treatment with beta-blockers, midodrine, fludrocortisone, and/or other medications [Becky et al 2012]. Dental: ?? Orthodontic and palatal corrections may tend to relapse, requiring prolonged use of a retainer. ?? Periodontal disease should be identified and treated. ?? Temporomandibular joint laxity and dysfunction are difficult to treat. There are no specific interventions of proven benefit. Intra-oral devices are sometimes helpful. Oral rest (minimization of chewing and talking), local myofascial release, and muscle relaxant medications may be beneficial for acute flares. Surgical intervention is often disappointing and should be considered only as a last resort. Psychiatric: ?? Validation of the affected individual's symptoms can be immensely helpful, as many with EDS, hypermobility type have been accused of malingering or diagnosed with primary psychiatric disorders by previous physicians. ?? Establishing trust, rapport and a supportive relationship between patient and provider is important. Emphasis should be placed on chronic, rather than acute, pain management. Distraction and hypnosis are often helpful [Godwin et al 2011]. ?? Depression is a common result of the chronic pain, disability, and other complications. Psychological and/or pain-oriented counseling can improve adaptation to and acceptance of these issues and thenecessary physical limitations. Cognitive behavioral therapy can be particularly beneficial, but requires active patient participation [Margie et al 2011]. Antidepressants are also of great benefit. Many individuals initially resist a diagnosis of or therapy for depression because of concern that their problems are being written off as purely psychiatric. ?? Consumer support groups are available and can be very beneficial. Prevention of Primary Manifestations: ?? Improved joint stability may be achieved by low-resistance exercise to increase muscle tone (subconscious resting muscle contraction, as opposed to voluntarily recruited muscle strength). Emphasis should be placed on both core and extremity muscle tone. Examples include walking, bicycling, low-impact aerobics, swimming or water exercise, and simple [id number] exercise without added resistance. Core toning activities, such as balance exercises and repetitive motions focusing on the abdominal,lumbar, and interscapular muscles, are also important. Progress should be made by increasing repetitions, frequency, or duration, not resistance. It often takes months or years for significant progressto be recognized. ?? Wide regional economist writing utensils can reduce strain on finger and hand joints. An unconventional grasp of a writing utensil, gently resting the shaft in the web between the thumb and index finger and securing the tip between the distal interphalangeal joints or middle phalanges of the index and third fingers (rather than using the tips of the fingers), results in substantially reduced axial stress to theinterphalangeal, metacarpophalangeal, and carpometacarpal joints. These adjustments frequently result in marked reduction of pain in the index finger and at the base of the thumb. Prevention of Secondary Complications: ?? Calcium (500-600 mg twice daily), vitamin D (400 or more units daily), and low-impact weight bearing exercise should be encouraged to maximize bone density. Surveillance: ?? DEXA should be repeated every other year if bone loss is confirmed. ?? Annual echocardiography is not necessary in those with a normal initial echocardiogram [Aries et al 2011]. In children and adolescents with a normal aortic root diameter, it is the author's practice to repeat every two to three years until young adulthood (age ~25 years). If the aortic root diameter is increased or accelerating faster than body surface area, more frequent monitoring is appropriate. In adults with a normal aortic root diameter, no further monitoring is needed. Agents/Circumstances to Avoid: ?? Joint hyperextension must be avoided. Individuals with EDS, hypermobility type usually need to beeducated about the normal range of joint extension and cautioned not to exceed it. ?? Resistance exercise can exacerbate joint instability and pain. Elastic resistance bands should beused with caution, if at all. In general, it is preferable to increase the number of repetitions of exercise rather than to increase the resistance. ?? Isometric exercise can also be problematic if too much force (resistance) is applied. ?? High-impact activity increases the risk for acute subluxation/dislocation, chronic pain, and osteoarthritis. Some sports, such as football, are therefore contraindicated. However, most sports and activities are acceptable with appropriate precautions. ?? Chiropractic adjustment is not strictly contraindicated, but must be performed cautiously to avoid iatrogenic subluxations or dislocations. ?? Crutches, canes, and walkers should be used cautiously as they may put increased stress on the upper extremities. ?? Alem Jerilyn E, MS - 05/20/2013 1:04 PM EST History of Present Concerns: Casie, a 27 y.o. female, was referred for medical genetics evaluationby CHRIS AVALOS MD for consultation regarding possible Barrington-Danlos syndrome. Concern for thispossible diagnosis was raised by Dr. Chris Avalos due to Casie's laxity of her knees as well as symptoms of hypermobile shoulders. Recently had a seizure attributed to her varicose veins, has long arms, has hypermobility, and gets dizzy upon standing. 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 Other signs and symptoms that supported this diagnosis included: joint dislocations, chronic joint pain, irritable bowel syndrome, orthostatic hypotension, and family history of similar findings in multiple relatives. The patient raised the following questions for Dr. Danay Milligan: 1. 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 /Medical History: No history on file. Developmental History: Patient has no history of developmental concerns. Diagnosed with ADD at age 18 years. Social History: History Social History Narrative Patient lives with her boyfriend and is unemployed due to disability since 2008 due to right arm injury. Family History: ?? A complete pedigree was previously obtained and is available in the genetics paper chart which was not obtained prior to today's appointment Parent report the following medical symptoms in patient: ?? General: Complex regional pain syndrome of RUE with swelling. Always has discomfort in shoulders,hips, and knees when in motion due to instability. Not chronic. ?? Growth/Endocrine: None ?? Eyes: None ?? ENT/Mouth: No nosebleeds ?? Heart: ECHO 02/2011, results were normal ([facility]). ?? Respiratory: Recurrent bronchitis and pneumonia as a child, improved as an adult. ?? GI: postprandial bloating and discomfort, frequent loose BMs w/ no mucus or blood. Question of IBS. ?? : Ovary cyst ruptured ?? Musculoskeletal: Describes snapping in her elbow and creaking in her forearm (not reproducible byOrthopedics evaluation). Hypermobility in her shoulders. Possible mild rib issues, can pop them out. ?? Integument: Hypersensitive to touch in right UE. Has possible telangiectasias on face and on leftwrist which ruptured. Dry and will crack and bleed. Feels wound healing is fine. Will lose pigment in skin in winter. ?? Neurologic: Complaints of pulsating pins and needles in all fingers on right, EMG shows no neuropathy ?? Psychiatric: ADD, Depression, Insomnia, anxiety ?? Allergy/Immunology: See list ?? Hematologic: Easy bruising/prolonged bleeding Testing: Prior to today's appointment the following studies were completed: Labs: ?? None Radiology: ?? ECHO, reportedly normal Other: ?? None documented in this encounter Plan of Treatment Scheduled Referrals Name Type Priority Associated Order Schedule Diagnoses Referral to Pain Outpatient Referral Routine Barrington-Danlos Ord ered: Clinic syndrome type III 05/20/2013 Referral to Outpatient Referral Routine Cystic disease of Ord ered: Endocrinology ovaries 05/20/2013 documented as of this encounter Visit Diagnoses Diagnosis Barrington-Danlos syndrome type III - Primar y Barrington-Danlos syndrome Cystic disease of ovaries Other and unspecified ovarian cyst documented in this encounter Care Teams Streetcar Repairer Helper Relationship Specialty Start Date End Date Chris Avalos MD PCP - General 02/20/10 02/04/21 [address] [place] [address] documented as of this encounter
--- OUTSIDE RECORDS SUMMARY | 2022-02-11 10:49 | XMS_ITS | Encounter Summary ---
:1985 Author Organization [facility] [place] [place] [address] Care Team Providers Name Role Phone Chris Avalos MD Primary Care Provider Reason for Visit Reason Comments Advice Only Encounter Details Date Type Department Care Team Description 10/28/2014 Office Visit Hematology and [place], Barrington-Danlos syndrome; Oncology at [facility] Chris Cuenca MD Barrington-Danlos disease [facility] [address] [place], [place] [facility]AC[facility]GERY [address] [place] [address] [phone] Social History Tobacco Use Types Packs/Day Years Used Date Smoking Tobacco: Every Day Cigarettes 1 Smokeless Tobacco: Never Alcohol Use Standard Drinks/Week Comments Not Asked 0 (1 standard drink = 0.6 oz pure alcoho l) Sex Assigned at Date Recorded Not on file documented as of this encounter Last Filed Vital Signs Vital Sign Reading Time Taken Comments Blood Pressure 157/90 10/28/2014 10:01 AM EDT Pulse 99 10/28/2014 10:01 AM EDT Temperature 37.1 ??C (98.8 ??F) 10/28/2014 10:01 AM EDT Respiratory Rate 16 10/28/2014 10:01 AM EDT Oxygen Saturation 100% 10/28/2014 10:01 AM EDT Inhaled Oxygen Concentration - - Weight 58.6 kg (129 lb 3 oz) 10/28/2014 10:01 AM EDT Height 173.4 cm (5' 8.27) 10/28/2014 10:01 AM EDT Body Mass Index 19.49 10/28/2014 10:01 AM EDT documented in this encounter Progress Notes Chris Hughes MD - 10/28/2014 10:52 AM EDT Chief Complaint: Chest wall pain, deformity, Barrington-Danlos syndrome. History of Present Illness: Casie Wild is a 28-year-old woman with Barrington-Danlos syndrome. She reports that over the past year she has had significant problems with pain and deformity in the chest wall. She feels that her right ribs are subluxing away from the sternum at the costochondral junction and causing at times a visible palpable deformity that she feels she has to push in. This is also quite painful. She says that this is exacerbated by exercise but that it is bothersome constantly. She also has some laxity of the right sternoclavicular joint and some pain at this area as well as pain in the left upper chest. This has been accompanied with dyspnea and feelings of lightheadedness and dizziness when standing up. She has been doing physical therapy and is able to walk a mile and climb stairs using her hands for support. This has been quite bothersome to her, and she is interested in potential interventions to improve her pain and also to reduce the sensation of the ribs moving around. Review of Systems: Constitutional: Positive for weight loss and night sweats. Negative for fever. Neuro: Positive for dizziness. Negative for seizures, numbness, or tingling. Eyes: Notable for pixilated vision changes. Ears, Nose, Throat: Negative for hearing or mucosal changes. Cardiovascular: Lightheadedness but not syncope. Respiratory: Positive for dyspnea but able to walk a mile. GI: Negative for abdominal pain, nausea, emesis, or blood in stool. : Negative for hematuria, dysuria, or frequency. Musculoskeletal: Persistent extremity pain and weakness. Skin: Negative for ulcers or rashes. Past Medical History: No history of heart disease. She has had an echocardiogram. No history of lung or kidney disease. No diabetes. No bleeding or blood clotting. She has had pneumonia in the past as a child but has never been hospitalized for this disease. Past Surgical History: She has a plate in the left wrist, she has had her wisdom teeth removed, and she has had a tonsillectomy. Social History: She is a half-pack a day smoker since the age of 13 and has no interest in quitting or help with quitting. She does not drink alcohol. She smokes marijuana daily. She does not work. Family History: Her mother has breast cancer. Her grandmother has diabetes mellitus. There are numerous family members on her father's side with Barrington-Danlos syndrome. Her father has prostate cancer and an unspecified type of anemia. Her mother also has hypertension. Meds and allergies are as reviewed. Physical Exam: She is a tall, thin, healthy-appearing woman. Blood pressure 157/90, heart rate 99, respiratory rate 16, temp 98.8, O2 sat 100% on room air. Her weight is 58.6 kg, and her BMI is 19.5. A/O, NAD. Lungs CTA. Heart RRR. Abd NT/ND. Prior Studies: She brings a chest x-ray, which does not show any diagnostic abnormalities. Assessment: 28-year-old woman with joint laxity due to Barrington-Danlos syndrome. She does not have an obvious visible deformity of the chest wall on my examination today, although she does have tenderness at the costosternal junction. I discussed with her that chest wall plating or reconstruction may lead her to have significant additional pain without alleviating the definite that she is currently experiencing. I suggested that a CAT scan of the chest may reveal diagnostic abnormalities that we could intervene on, but that this was not mandatory at this time. I agreed to review her case with pediatric surgeons and orthopedic surgeons here to see if there was any body with experience with this process at [facility] and to get back to her once we had obtained some information. Plan: Follow up by phone in two weeks. I spent 45 minutes in direct [id number] discussion with the patient. At least 30 minutes were spent counseling the patient on the pathophysiology and natural history of their disease, available treatment options and expected course with different modalities of treatment. Current Outpatient Prescriptions on File Prior to Visit Medication Sig Dispense Refill ??? estradiol (ESTRACE) 1 mg tablet Take 1 tablet by mouth daily. 90 tablet 4 ??? traMADol (ULTRAM) 50 mg tablet Take 50 mg by mouth every 6 hours as needed. Taking 50 to 100mg every 3 to 4 times daily ??? methylphenidate (RITALIN) 10 mg tablet Take 10 mg by mouth 3 times daily. ??? Ascorbic Acid (VITAMIN C) 1,000 mg tablet Take 1,000 mg by mouth daily. ??? Norethindrone Ac-Eth Estradiol (MICROGESTIN 1.08/27, ,) 1.5-30 mg-mcg Tab ??? multivitamin (MULTIPLE VITAMINS) tablet ??? FSH/FLX/PRM/BLK/BOR/OM3,6,9 #5 (OMEGA 3-6-9 FATTY ACIDS ORAL) Take 2 capsules by mouth daily. No current facility-administered medications on file prior to visit. CHRIS HUGHES MD documented in this encounter Plan of Treatment Not on filedocumented as of this encounter Visit Diagnoses Diagnosis Barrington-Danlos syndrome Barrington-Danlos disease Barrington-Danlos syndrome documented in this encounter Care Teams Stone Driller Relationship Specialty Start Date End Date Chris Avalos MD PCP - General 02/20/10 02/04/21 [address] [place] [address] documented as of this encounter
--- OUTSIDE RECORDS SUMMARY | 2022-02-11 10:49 | XMS_ITS | Encounter Summary ---
:1985 Author Organization [facility] [address] Care Team Providers Name Role Phone Chris Avalos MD Primary Care Provider Reason for Visit Reason Onset Date Comments Results 03/19/2011 [facility] Encounter Details Date Type Department Care Team Description 03/19/2011 Telephone [facility] Jun Valiente Jr., Re sults ([email or web address] [address] [place] [address] [place] [address] [phone] (Wo rk) Social History Tobacco Use Types Packs/Day Years Used Date Smoking Tobacco: Every Day Cigarettes 1 Alcohol Use Standard Drinks/Week Comments Not Asked 0 (1 standard drink = 0.6 oz pure alcoho l) Sex Assigned at Date Recorded Not on file documented as of this encounter Miscellaneous Notes Telephone Encounter - Jun Valiente Jr., MD - 03/21/2011 8:14 AM EST Result faxed documented in this encounter Plan of Treatment Not on filedocumented as of this encounter Visit Diagnoses Not on filedocumented in this encounter Care Teams Bottle Assembler Relationship Specialty Start Date End Date Chris Avalos MD PCP - General 02/20/10 02/04/21 [address] [place] [address] documented as of this encounter
--- OUTSIDE RECORDS SUMMARY | 2022-02-11 10:49 | XMS_ITS | Encounter Summary ---
:1985 Author Organization [facility] [place] [address] Care Team Providers Name Role Phone Unavailable Primary Care Provider Unavailable Encounter Details Date Type Department Care Team Description 02/16/2010 Follow-Up Orthopaedics at [facility] Rodrigo Russo MD [facility] Lindsey robbins [facility] [place] [address] ORTHOPAEDIC SURGERY [phone] [place], [place] [address] (Wo rk) Social History Tobacco Use Types Packs/Day Years Used Date Smoking Tobacco: Never Assessed Sex Assigned at Date Recorded Not on file documented as of this encounter Plan of Treatment Not on filedocumented as of this encounter Visit Diagnoses Not on filedocumented in this encounter
--- OUTSIDE RECORDS SUMMARY | 2022-02-11 10:49 | XMS_ITS | Encounter Summary ---
:1985 Author Organization [facility] [place] [address] Care Team Providers Name Role Phone Chris Avalos MD Primary Care Provider Reason for Referral Surgical (Routine) - Closed Specialty Diagnoses / Procedures Referred By Contact Refer red To Contact Thoracic Surgery Diagnoses Barrington-Danlos syndrome type III Chest wall deformity Danay Milligan MD [facility] [address] [place] [address] & [place] [address] [place] [address] Referral ID Status Reason Start Date Expiration Date Visits V isits Requested Authorized [id number] Closed Consult, 09/28/2014 09/28/2015 3 3 Test & Treat Reason for Visit Reason Comments Other Encounter Details Date Type Department Care Team Description 09/23/2014 Telephone Genetics at [facility] Jerilyn Ferrara, [place] [address] GENETICS & CHILD [phone] [place], [place] [address] (Wo rk) Social History Tobacco Use Types Packs/Day Years Used Date Smoking Tobacco: Every Day Cigarettes 1 Smokeless Tobacco: Never Alcohol Use Standard Drinks/Week Comments Not Asked 0 (1 standard drink = 0.6 oz pure alcoho l) Sex Assigned at Date Recorded Not on file documented as of this encounter Miscellaneous Notes Telephone Encounter - Jerilyn Ferrara LGC - 09/28/2014 2:08 PM EDT I did not receive a call back from Casie last week. In lieu of a genetics appointment, a referral was entered to orthopedics so I expect that she will be contacted soon to discuss an appointment for evaluation and management. A copy of this note will be sent to her home address and PCP. Jerilyn Ferrara MS, [facility] Licensed Genetic Counselor [phone] EM: Telephone Encounter - Jerilyn Ferrara LGC - 09/23/2014 12:12 PM EDT Rec'd voicemail from Casie in [facility] to my message. She stated that she will be seeing Dr. Avalos next Friday for evaluation. She also stated that she has been seeing PT who is trying to push her ribs back into place. She thought that an orthopedics evaluation would be beneficial. She stated that she would call back today to try to catch me to talk more. Jerilyn Ferrara MS, [facility] Licensed Genetic Counselor [phone] EM: Telephone Encounter - Jerilyn Ferrara LGC - 09/23/2014 9:50 AM EDT LM explaining the reason for my delay in returning her phone call. I explained that Dr. Milligan has reviewed Casie's concerns and feels that it would be best for Casie to be referred to orthopedics for evaluation and management of her progressive chest wall asymmetry. I stated that Dr. Dinulos felt that there is not much that we would offer from a genetics follow-up visit and that, while we may see pectus deformities, changes like she is describing are not typical in our EDS patients. She felt that it would be more helpful to have Casie to see an orthopedics doctor. I suggested that she speak with her PCP regarding a referral to orthopedics, particularly since someinsurance carriers require the primary care providers to make specialty referrals. However, I offered to enter an internal referral as it may help expedite scheduling. I asked that she call back to confirm what she would like to do. Jerilyn Ferrara, MS, [facility] Licensed Genetic Counselor [phone] EM: [email or web address] Telephone Encounter - Jerilyn Ferrara LGC - 09/23/2014 9:47 AM EDT ----- Message from ITZ Lang sent at 09/20/2014 4:33 PM EDT ----- Reviewed with MB. Suggested that since this is a management issue, she should consider ortho eval. ----- Message ----- From: Florencia Can LGC Sent: 09/19/2014 12:00 PM To: ITZ Lang ----- Message ----- From: Kasandra Kruger Sent: 09/12/2014 11:53 AM To: [facility] Clinical Message for Jerilyn Ferrara Patient called to schedule appointment. Gave her first available on 01/31/15. Patient states that Her rib cage is deforming She would like a call back at [phone] documented in this encounter Plan of Treatment Scheduled Referrals Name Type Priority Associated Order Schedule Diagnoses Referral to Outpatient Referral Routine Barrington-Danlos Ordered : Orthopaedics syndrome type II I 09/28/2014 Chest wall deformity documented as of this encounter Visit Diagnoses Diagnosis Barrington-Danlos syndrome type III - Primar y Barrington-Danlos syndrome Chest wall deformity Acquired deformity of chest and rib documented in this encounter Care Teams Flooring Machine Feeder Relationship Specialty Start Date End Date Chris Avalos MD PCP - General 02/20/10 02/04/21 [address] [place] [address] documented as of this encounter
--- OUTSIDE RECORDS SUMMARY | 2022-02-11 10:49 | XMS_ITS | Clinical Summary ---
:1985 Author Organization [facility] [place] [address] Care Team Providers Name Role Phone Rayo Khalil MD Primary Care Provider Allergies Active Allergy Reactions Severity Noted Date Comments Varenicline Other (See Comments) 08/17/2010 depress ion Penicillins Hives Medium Medications Medication Sig Dispensed Refills Start Date End Date Status Norethindrone Ac-Eth 0 02/16/2010 Active Estradiol (MICROGESTIN 1.5/30, 21,) 1.5-30 mg-mcg Tab multivitamin (MULTIPLE 0 02/16/2010 Active VITAMINS) tablet Ascorbic Acid (VITAMIN Take 1,000 mg by 0 Active C) 1,000 mg tablet mouth daily. FSH/FLX/PRM/BLK/BOR/OM3, Take 2 capsules 0 Active 6,9 #5 (OMEGA 3-6-9 by mouth daily. FATTY ACIDS ORAL) traMADol (ULTRAM) 50 mg Take 50 mg by 0 Active tablet mouth every 6 hours as needed. Taking 50 to 100mg every 3 to 4 times daily methylphenidate Take 10 mg by 0 Active (RITALIN) 10 mg tablet mouth 3 times daily. estradiol (ESTRACE) 1 mg Take 1 tablet by 90 tablet 4 07/31/19 14 Active tablet mouth daily. topiramate (TOPAMAX) 50 Take 50 mg by 0 Active mg Tablet mouth nightly. prochlorperazine Take 5 mg by 0 Active (COMPAZINE) 5 mg Tablet mouth every 8 hours as needed for Nausea. CYANOCOBALAMIN, VITAMIN Inject 10 mg as 0 Active B-12, (VITAMIN B-12 INJ) directed. magnesium 250 mg Tablet Take 250 mg by 0 Active mouth 2 times daily. Take 1-2 tablets twice a day, reduce if causes loose stool PYRIDOXAL PHOSPHATE Take 50 mg by 0 Active (PYRIDOXAL-5 PHOSPHATE mouth. 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 Elbow pain 08/17/2010 CIS - Entered not Verified 01/24/2010 Overview: To Verify, please change Status to Ente red in Error CIS - Right elbow pain 03/31/2008 CIS - Right lateral epicondylitis 03/31/2008 CIS - Left both bones fracture 03/31/2005 CIS - ADHD Chronic joint pain Barrington-Danlos syndrome type III Social History Tobacco Use Types Packs/Day Years Used Date Smoking Tobacco: Every Day Cigarettes 1 Smokeless Tobacco: Never Alcohol Use Standard Drinks/Week Comments Not Asked 0 (1 standard drink = 0.6 oz pure alcoho l) Sex Assigned at Date Recorded Not on file Last Filed Vital Signs Vital Sign Reading Time Taken Comments Blood Pressure 129/77 01/31/2015 11:16 AM EST Pulse 75 01/31/2015 11:16 AM EST Temperature 37.1 ??C (98.8 ??F) 10/28/2014 10:01 AM EDT Respiratory Rate 16 10/28/2014 10:01 AM EDT Oxygen Saturation 100% 10/28/2014 10:01 AM EDT Inhaled Oxygen Concentration - - Weight 59.4 kg (131 lb) 01/31/2015 11:16 AM EST Height 172.7 cm (5' 8) 01/31/2015 11:16 AM EST Body Mass Index 19.92 01/31/2015 11:16 AM EST Plan of Treatment Health Maintenance Due Date Last Done Comments Covid-19 Vaccine (#1) 06/12/1986 HIV screen 12/14/2003 Hepatitis C Screening 12/14/2003 Tdap adult 2004 Tetanus vaccine 2004 HPV test 12/14/2015 PAP Smear 12/14/2015 Influenza (Flu) vaccine (1 of 1 - Influenza standard 11/29/2021 series) Insurance Payer Benefit Plan / Subscriber ID Effective Dates Phone Addre ss Type Group [place]ICA[place] [id number] 2015-[employer] [phone] [address] [address] [place], [place] [phone] Care Teams Steam And Power Superintendent Relationship Specialty Start Date End Date Rayo Khalil MD PCP - General Emergency Medicine 02/05/21 [address] [place], [place] [id number]
--- OUTSIDE RECORDS SUMMARY | 2022-02-11 10:49 | XMS_ITS | Encounter Summary ---
:1985 Author Organization [facility] [place] [address] Care Team Providers Name Role Phone Rayo Khalil MD Primary Care Provider Reason for Referral Consultation (Routine) - Closed Specialty Diagnoses / Procedures Referred By Contact Refer red To Contact Dermatology Diagnoses Skin lesion Rayo Khalil MD [facility] Dermatology [address] [place], [place] [id number] [place] [phone] Fax: Referral ID Status Reason Start Date Expiration Date Visits V isits Requested Authorized [id number] Closed Consult, Test 09/20/2021 09/20/2022 12 12 & Treat PCP Updated and/or Approved Encounter Details Date Type Department Care Team Description 09/20/2021 Transcribe Orders eDH Incoming Referra ls Rayo Khalil MD Skin lesion [phone] [address] [place], [place] [address] (Wo rk) Social History Tobacco Use Types Packs/Day Years Used Date Smoking Tobacco: Every Day Cigarettes 1 Smokeless Tobacco: Never Alcohol Use Standard Drinks/Week Comments Not Asked 0 (1 standard drink = 0.6 oz pure alcoho l) Sex Assigned at Date Recorded Not on file documented as of this encounter Plan of Treatment Scheduled Referrals Name Type Priority Associated Order Schedule Diagnoses Referral to Outpatient Referral Routine Skin lesion Ordered: Dermatology 09/20/2021 documented as of this encounter Visit Diagnoses Diagnosis Skin lesion Unspecified disorder of skin and subcuta neous tissue documented in this encounter Care Teams Senior Communications Specialist Relationship Specialty Start Date End Date Rayo Khalil MD PCP - General Emergency Medicine 02/05/21 [address] [place] [address] documented as of this encounter
--- OUTSIDE RECORDS SUMMARY | 2022-02-11 10:49 | XMS_ITS | Encounter Summary ---
:1985 Author Organization [facility] [place] [address] Care Team Providers Name Role Phone Chris Avalos MD Primary Care Provider Encounter Details Date Type Department Care Team Description 07/30/2013 Telephone Endocrinology at [facility] C Aubree [place] [phone] Social History Tobacco Use Types Packs/Day Years Used Date Smoking Tobacco: Every Day Cigarettes 1 Smokeless Tobacco: Never Alcohol Use Standard Drinks/Week Comments Not Asked 0 (1 standard drink = 0.6 oz pure alcoho l) Sex Assigned at Date Recorded Not on file documented as of this encounter Miscellaneous Notes Telephone Encounter - Alvino Smith MD - 07/30/2013 10:33 AM EDT To take estradiol 1 mg qd and stop to get withdrawal bleed after taking provera as instructed q 60-90 days. (just efaxed script to her [facility]). Thanks!. ALVINO SMIHT MD Telephone Encounter - Aubree Jha LPN - 07/30/2013 8:35 AM EDT Call from pharmacist at [facility]. received Rx for provera that patient is to take after taking estradiol for 60-90 days. 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
--- OUTSIDE RECORDS SUMMARY | 2022-02-11 10:49 | XMS_ITS | Encounter Summary ---
:1985 Author Organization [facility] [place] [address] Care Team Providers Name Role Phone Chris Avalos MD Primary Care Provider Reason for Visit Reason Comments Follow-up Encounter Details Date Type Department Care Team Description 01/31/2015 Office Visit Genetics at [facility] Danay Milligan-Danlos syndrome [facility] MD [address] [place] [address] GENETICS & CHILD [phone] [place], [place] [address] Social History Tobacco Use Types [...] Pulse 75 01/31/2015 11:16 AM EST Temperature - - Respiratory Rate - - Oxygen Saturation - - Inhaled Oxygen Concentration - - Weight 59.4 kg (131 lb) 01/31/2015 11:16 AM EST Height 172.7 cm (5' 8) 01/31/2015 11:16 AM EST Body Mass Index 19.92 01/31/2015 11:16 AM EST documented in this encounter Patient Instructions Patient InstructionsDanay Milligan MD - 01/31/2015 11:56 AM EST Casie is a 29 y.o. woman referred to Genetics Clinic by [...] was provided with a copy of the Ginger article and was referred to the [employer]-Danlos [employer] website (www.ednf.org) for additional information and support. A portion of the BrianaSwipelybharati article pertaining to appropriate management is included below. Recommendations discussed today: 1. PCP to work-up recent history of hypertension - not typically associated with EDS 2. Re-evaluation by Neurology for recent migraines after intercourse and new onset neurologic pain 3. Consider sleep study for snoring /sleep apnea per EDS III guidelines 4. Consider referral to Rheumatology (Dr. Espinosa) for additional pain management 5. Casie to get copy of autopsy report/cause of in her cousin who had sudden 6. Continue with EDS III management guidelines noted below From [employer] article of EDS, hypermobility type (http://www.ncbi.nlm.nih.gov/books/IAU1354/): Management Evaluations Following Initial Diagnosis: To establish the extent of disease in an individual diagnosed with Barrington-Danlos syndrome (EDS), hypermobility type, the following evaluations are recommended: Thorough history and physical examination, especially for musculoskeletal, skin, cardiovascular, gastrointestinal, and oral/dental manifestations Assessment of prior experience with pharmacologic, mechanical, and/or surgical treatment of pain andjoint instability, as well as current degree of pain and disability Baseline echocardiogram to evaluate aortic root diameter, as adjusted for age and body surface area [Danie et al 1989]. Significant aortic enlargement and/or other cardiac abnormalities should prompt consideration of alternative diagnoses. The following evaluations should not be routine, but may be appropriate in some situations: For individuals with significant orthostatic intolerance and/or tachycardia, tilt-table testing to help confirm postural orthostatic tachycardia and/or neurally-mediated hypotension. It is sometimes appropriate to rule out adrenocortical insufficiency. If irritable bowel syndrome is suspected, consideration of formal gastroenterology consultation and possible endoscopy to rule out other treatable diagnoses. Celiac disease, inflammatory bowel disease,and other causes of malabsorption or bowel dysfunction are not associated with EDS, but may be coexisting diagnoses. Dual-energy x-ray absorptiometry (DEXA) at any age if height loss greater than one inch is documented or x-rays are suggestive of osteopenia. Women should have their first study no later than menopause. It is unclear if or at what age men without height loss or abnormal x-rays should have a screening DEXA. If a history of severe or prolonged bleeding is present, consideration of hematologic evaluation forvon Willebrand disease, thrombocytopenia, or other bleeding diathesis. Although pathophysiologicallyunrelated, these conditions may coexist with hypermobility type EDS and exacerbate the hematologic ma nifestations. For individuals with significant pain and/or fatigue, screening for and correction of other potential causes, including (but not limited to) vitamin D deficiency, vitamin B12 deficiency, folate deficiency, iron deficiency, celiac disease, or hypothyroidism If there is suspicion of Chiari malformation, consideration of cerebral MRI, possibly with CSF flow studies Medical genetics consultation if there is uncertainty about the diagnosis or for assistance in evaluation and management Treatment of Manifestations Physical Therapy: Myofascial release (any physical therapy modality that [...] stimulation, acupuncture, acupressure, biofeedback, and conscious relaxation. Low-resistance muscle toning exercise can improve joint stability and reduce future subluxations, dislocations, and pain. See Prevention of Primary Manifestations. Transvaginal pelvic physical therapy and myofascial release (in which massage or ultrasound is applied to the pelvic musculature via a transvaginal approach) may improve dyspareunia, abdominal pain, back pain, and sometimes radicular lower- extremity pain. Assistive Devices: Braces are useful to improve joint stability. Orthopedists, rheumatologists, and physical therapistscan assist in recommending appropriate devices for commonly problematic joints such as knees and ankles. Shoulders and hips present more of a challenge for external bracing. Occupational therapists maybe consulted for ring splints (to stabilize interphalangeal joints) and wrist or wrist/thumb braces in affected individuals with small joint instability. A soft neck collar, if tolerated, may help withneck pain and headaches. A wheelchair or scooter may be necessary to offload stress on lower extremity joints. Special wheelchair customizations such as lightweight and/or motorized chairs, seat pads, and specialized wheels and wheel grasps may be necessary to accommodate pelvic and upper extremity issues. Crutches, canes, and walkers should be used cautiously as they may put increased stress on the upper extremities. A waterbed, adjustable air mattress, or viscoelastic foam mattress (and/or pillow) may provide increased support with improved sleep quality and less pain. Pain Medication: Pain medication is frequently underprescribed, and should be tailored to the individual's subjectivesymptoms and objective measures of pain, not to physical examination or radiologic findings. Individuals with mild to moderate pain may get sufficient relief from as-needed use. Those with more significant pain typically require higher doses and combinations of multiple medications. Prevention or control of pain with regularly scheduled dosing is often more successful than acute treatment with as-needed dosing. Many clinicians recruit a structural steel painter, but pain can be managed by the primary physician if desired. Note: All of the following dose recommendations are for adults without hepatic or renal disease; adjustments may be necessary for other populations. Acetaminophen, 4000 mg in three or four divided doses, will not completely alleviate pain but is a useful and well-tolerated adjunct in combination with other agents. Acetaminophen is often present in combination with other analgesic medications and cold/flu preparations, and careful attention should be paid to the total daily dose to avoid exceeding 4000 mg/day. NSAIDs (nonsteroidal anti-inflammatory drugs) (e.g., ibuprofen, naproxen, meloxicam, nabumetone) should be titrated to the maximum dose or as tolerated by upper gastrointestinal symptoms. NSAIDs are particularly useful for arthralgia, myalgia, and secondary inflammatory conditions (e.g. bursitis, tendinitis, costochodritis, or post-dislocation pain). Bruising is not a contraindication to NSAID therapy, but occasionally requires dose reduction or change to a Gallagher-2 inhibitor. Gallagher-2 inhibitors (e.g. celecoxib) in maximal doses are no stronger than dose- equivalent NSAIDS, but may be better tolerated and thus more effective. Tramadol can be added to acetaminophen plus an NSAID or Gallagher-2 inhibitor before resorting to opioids.Nausea is the most common side effect. Topical lidocaine as a cream or patch is sometimes useful for localized areas of pain. Topical capsaicin is of questionable utility, but is safe. Skeletal muscle relaxants are useful in combination with all of the above to treat myofascial spasm.They are also sometimes helpful in treating neuropathic pain. Metaxalone may be the least sedating, but all are potentially limited by sedation. Tricyclic antidepressants are often effective for neuropathic pain, with additional benefits of mildsedation (for those with sleep disturbance) and a little mood elevation. Constipation, a common sideeffect, can be managed with fluids, fiber, stool softeners, and laxatives. For those with diarrhea-pr edominant irritable bowel syndrome, the constipating effect may be therapeutic. Typical doses are nortriptyline (25-150 mg) or trazadone (50-300 mg) every evening. Serotonin/norepinephrine receptor inhibitors (SNRIs), such as venlafaxine, desvenlafaxine, duloxetine, and milnacipran also offer combined benefit for depression and neuropathic pain. Venlaxafine may raise the blood pressure a few points, which potentially could be helpful for individuals with neurally mediated hypotension. Some anti-seizure medications are also effective for neuropathic pain and can be used in addition totricyclic and/or SNRI antidepressants. All require gradual titration [...] and lamotrigine have also been used successfully. Short courses of steroids can be very effective for controlling acute flares of pain associated withsecondary inflammation. EDS is not an intrinsically inflammatory condition, and there is no role forchronic steroid use. Opioids are effective for both myofascial pain [...] or another adjustment to the pain regimen. Supplemental magnesium and/or potassium anecdotally may provide some muscle relaxation and pain relief. Diarrhea, nausea, and sedation are the most common side effects. Specific validated dose recommendations do not exist. Glucosamine and chondroitin may help to prevent or treat osteoarthritis in the general population. They have not been studied specifically in EDS, but are not contraindicated. Medication precautions: It is critically important to evaluate all potential sources of acetaminophen and assure that total daily use does not exceed 4000 mg. Abrupt cessation of anti-seizure medications can precipitate a seizure. When discontinuing, they should be tapered gradually. Chronic opioid use can result in dependency with escalating dose requirements and diminishing effect. Narcotic bowel syndrome can also develop, and may be confused with irritable bowel syndrome. Serotonin syndrome can occur when combining multiple [...] adequate pain control. Surgery and Other Procedures: Many individuals will have undergone several orthopedic procedures prior to diagnosis. These often include joint debridement, tendon relocations, capsulorraphy, and arthroplasty. The degree of stabilization and pain reduction, overall patient satisfaction, and duration of improvement are variable, but usually less than in individuals without EDS [Rahul et al 2003, Sherie et al 2004, Everardo et al 2011b]. In general, orthopedic surgery should be delayed in favor of physical therapy and bracing. Whensurgery is performed, the affected individual and physician should cautiously anticipate some improvement but expect less than optimal results. There is one report of long-term improvement in shoulder stability with Achilles tendon allograft reconstruction of the joint capsule in an individual with EDS, hypermobility type [Hector et al 2012]. It is not yet known if this approach will be successfulin other affected individuals. Unlike the classic and vascular types of EDS, the hypermobility type is not associated with increased risk for perioperative skin and soft tissue complications. Prolotherapy, in which saline and/or other irritants are injected in tendons or around joints to induce scar formation and increase stability, has not been objectively studied. It is probably safe and probably subject to the same limitations as orthopedic surgery. Anesthetic/corticosteroid injections for localized areas of pain and acute inflammation are often helpful, but cannot be repeated indefinitely; dry needling without injection of any material sometimes provides similar benefit. Anesthetic nerve blocks can provide temporary relief of neuropathic pain. These are sometimes followed by surgical nerve root destruction and/or implantable stimulators (sensory or motor), with variable results. Constant intrathecal delivery of anesthetic and/or opioid medication may reduce the need for oral/systemic medications, but should only be considered as a last resort. Bone Density Therapy is the same as for any other individual with low bone density. Simple weight-bearing exercise, such as walking or use of an elliptical technology trainer, should not be overlooked as a means to help maintain bone density as well as improve resting muscle tone. Hematologic: Easy and spontaneous bruising does not require treatment, and does not require avoidance of NSAIDs. For severe bleeding (e.g., epistaxis, menometrorrhagia) or operative prophylaxis, desmopressin acetate (ddAVP) is often beneficial [Vane & Madhavi 1997, Sol et al 2009]. Gastrointestinal: Gastritis and reflux symptoms may require intensive therapy, including proton pump inhibitor twice daily before meals, high-dose H2-romana at bedtime (e.g., famotidine 20-40 mg or ranitidine 150-300 mg), sucralfate one gram four times daily, and xyed-eim-crvbwaz acid-neutralizing agents. Other treatable causes, such as H. pylori infection, should be investigated. Upper endoscopy is indicated for resistant symptoms, but frequently is normal other than chronic gastritis. Delayed gastric emptying should be identified if present and treated as usual with promotility agents (e.g., erythromycin, metoclopramide). Irritable bowel syndrome is treated as usual with antispasmodics, antidiarrheals, and laxatives as needed. Lubiprostone is a motility enhancer that may be helpful for those with constipation only. Tricyclic antidepressants may be especially helpful for persons with both neuropathic pain and diarrhea. Cardiovascular: Beta-blockade is rarely necessary, but should be considered for progressive aortic enlargement. Rarely, severe enlargement (>4.5-5.0 cm) requires surgical evaluation. Neurally mediated hypotension and postural orthostatic tachycardia are treated as usual, with avoidance of sudden postural change, consideration of lower extremity and/or abdominal compression garments, exercise to increase muscle tone, supplementation of sodium and water to expand the blood volume, and sometimes pharmacologic treatment with beta-blockers, midodrine, fludrocortisone, and/or other medications [Becky et al 2012]. Dental: Orthodontic and palatal corrections may tend to relapse, requiring prolonged use of a retainer. Periodontal disease should be identified and treated. Temporomandibular joint laxity and dysfunction are difficult to treat. There are no specific interventions of proven benefit. Intra-oral devices are sometimes helpful. Oral rest (minimization of chewing and talking), local myofascial release, and muscle relaxant medications may be beneficial for acuteflares. Surgical intervention is often disappointing and should be considered only as a last resort. Psychiatric: Validation of the affected individual's symptoms can be immensely helpful, as many with EDS, hypermobility type have been accused of malingering or diagnosed with primary psychiatric disorders by previous physicians. Establishing trust, rapport and a supportive relationship between patient and provider is important.Emphasis should be placed on chronic, rather than acute, pain management. Distraction and hypnosis are often helpful [Godwin et al 2011]. Depression is a common result of the chronic pain, disability, and other complications. Psychological and/or pain-oriented counseling can improve adaptation to and acceptance of these issues and the necessary physical limitations. Cognitive behavioral therapy can be particularly beneficial, but requires active patient participation [Margie et al 2011]. Antidepressants are also of great benefit. Many individuals initially resist a diagnosis of or therapy for depression because of concern that their problems are being written off as purely psychiatric. Consumer support groups are available and can be very beneficial. Prevention of Primary Manifestations: Improved joint stability may be achieved by low-resistance exercise to increase muscle tone (subconscious resting muscle contraction, as opposed to voluntarily recruited muscle strength). Emphasis should be placed on both core and extremity muscle tone. Examples include walking, bicycling, low-impact aerobics, swimming or water exercise, and simple xlhqg-wn-lrcgvi exercise without added resistance. Core toning activities, such as balance exercises and repetitive motions focusing on the abdominal, lumbar, and interscapular muscles, are also important. Progress should be made by increasing repetitions, frequency, or duration, not resistance. It often takes months or years for significant progress arpita recognized. Wide engineering production liaison writing utensils can reduce strain on finger and hand joints. An unconventional grasp of awriting utensil, gently resting the shaft in the web between the thumb and index finger and securingthe tip between the distal interphalangeal joints or middle phalanges of the index and third fingers(rather than using the tips of the fingers), results in substantially reduced axial stress to the interphalangeal, metacarpophalangeal, and carpometacarpal joints. These adjustments frequently result in marked reduction of pain in the index finger and at the base of the thumb. Prevention of Secondary Complications: Calcium (500-600 mg twice daily), vitamin D (400 or more units daily), and low- impact weight bearingexercise should be encouraged to maximize bone density. Surveillance: DEXA should be repeated every other year if bone loss is confirmed. Annual echocardiography is not necessary in those with a normal initial echocardiogram [Aries et al 2011]. In children and adolescents with a normal aortic root diameter, it is the author's practiceto repeat every two to three years until young adulthood (age ~25 years). If the aortic root diameter is increased or accelerating faster than body surface area, more frequent monitoring is appropriate. In adults with a normal aortic root diameter, no further monitoring is needed. Agents/Circumstances to Avoid: Joint hyperextension must be avoided. Individuals with EDS, hypermobility type usually need to be educated about the normal range of joint extension and cautioned not to exceed it. Resistance exercise can exacerbate joint instability and pain. Elastic resistance bands should be used with caution, if at all. In general, it is preferable to increase the number of repetitions of exercise rather than to increase the resistance. Isometric exercise can also be problematic if too much force (resistance) is applied. High-impact activity increases the risk for acute subluxation/dislocation, chronic pain, and osteoarthritis. Some sports, such as football, are therefore contraindicated. However, most sports and activities are acceptable with appropriate precautions. Chiropractic adjustment is not strictly contraindicated, but must be performed cautiously to avoid iatrogenic subluxations or dislocations. Crutches, canes, and walkers should be used cautiously as they may put increased stress on the upperextremities. documented in this encounter Progress Notes Danay Milligan MD - 01/31/2015 11:39 AM EST Subjective: Patient ID: Casie Wild is a 29 y.o. female. HPI Comments: Casie is a 29 y.o. 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 Casie states that she has had difficulty with increasing chest/back asymmetry, migraines, neuropathic pain, new onset hypertension, and sleeping disturbance/fatigue. Review of Systems ?? General: Complex regional pain syndrome of RUE with swelling. Always has discomfort in shoulders,hips, and knees when in motion due to instability. Night sweats. Fatigue ?? Growth/Endocrine: None ?? Eyes: None ?? ENT/Mouth: No nosebleeds ?? Heart: ECHO 02/2011, results were normal ([facility]). States she has recent onset hypertension. ?? Respiratory: Recurrent bronchitis and pneumonia as [...] Will lose pigment in skin in winter. Varicose veins. ?? Neurologic: Complaints of pulsating pins and needles in all fingers on right, EMG shows no neuropathy. Migraines are more problematic, increased incidence after intercourse. ?? Psychiatric: ADD, Depression, Insomnia, anxiety ?? Allergy/Immunology: See list Objective: Physical Exam Nursing note and vitals [...] Skin: Skin is warm. Velvety soft skin Widened scars Mild varicose veins lower legs Mild striae Psychiatric: She has a normal mood and affect. Assessment and Plan: Casie is a 29 y.o. woman referred to Genetics Clinic by [...] was provided with a copy of the Ginger article and was referred to the Barrington-Danlos [employer] website (www.ednf.org) for additional information and support. A portion of the [employer]har[employer] article pertaining to appropriate management is included below. Casie had other questions regarding her symptoms noted in Review of Systems above. The results of our discussion is noted below in the Recommendations. Recommendations discussed today: 1. PCP to work-up recent history of hypertension - not typically associated with EDS 2. Re-evaluation by Neurology for recent migraines after intercourse and new onset neurologic pain 3. Consider sleep study for snoring /sleep apnea per EDS III guidelines 4. Consider referral to Rheumatology (Dr. Espinosa) for additional pain management 5. Casie to get copy of autopsy report/cause of in her cousin who had sudden 6. Continue with EDS III management guidelines noted below 45 minutes of my 60 minute encounter with this patient was spent in face to face counseling regarding EDS III. From [employer] article of EDS, hypermobility type (http://www.ncbi.nlm.nih.gov/books/TVK5335/): Management Evaluations Following Initial Diagnosis: To establish the extent of disease in an individual diagnosed with Barrington-Danlos syndrome (EDS), hypermobility type, the following evaluations are recommended: Thorough history and physical examination, especially for musculoskeletal, skin, cardiovascular, gastrointestinal, and oral/dental manifestations Assessment of prior experience with pharmacologic, mechanical, and/or surgical treatment of pain andjoint instability, as well as current degree of pain and disability Baseline echocardiogram to evaluate aortic root diameter, as adjusted for age and body surface area [Danie et al 1989]. Significant aortic enlargement and/or other cardiac abnormalities should prompt consideration of alternative diagnoses. The following evaluations should not be routine, but may be appropriate in some situations: For individuals with significant orthostatic intolerance and/or tachycardia, tilt-table testing to help confirm postural orthostatic tachycardia and/or neurally-mediated hypotension. It is sometimes appropriate to rule out adrenocortical insufficiency. If irritable bowel syndrome is suspected, consideration of formal gastroenterology consultation and possible endoscopy to rule out other treatable diagnoses. Celiac disease, inflammatory bowel disease,and other causes of malabsorption or bowel dysfunction are not associated with EDS, but may be coexisting diagnoses. Dual-energy x-ray absorptiometry (DEXA) at any age if height loss greater than one inch is documented or x-rays are suggestive of osteopenia. Women should have their first study no later than menopause. It is unclear if or at what age men without height loss or abnormal x-rays should have a screening DEXA. If a history of severe or prolonged bleeding is present, consideration of hematologic evaluation forvon Willebrand disease, thrombocytopenia, or other bleeding diathesis. Although pathophysiologicallyunrelated, these conditions may coexist with hypermobility type EDS and exacerbate the hematologic ma nifestations. For individuals with significant pain and/or fatigue, screening for and correction of other potential causes, including (but not limited to) vitamin D deficiency, vitamin B12 deficiency, folate deficiency, iron deficiency, celiac disease, or hypothyroidism If there is suspicion of Chiari malformation, consideration of cerebral MRI, possibly with CSF flow studies Medical genetics consultation if there is uncertainty about the diagnosis or for assistance in evaluation and management Treatment of Manifestations Physical Therapy: Myofascial release (any physical therapy modality that [...] stimulation, acupuncture, acupressure, biofeedback, and conscious relaxation. Low-resistance muscle toning exercise can improve joint stability and reduce future subluxations, dislocations, and pain. See Prevention of Primary Manifestations. Transvaginal pelvic physical therapy and myofascial release (in which massage or ultrasound is applied to the pelvic musculature via a transvaginal approach) may improve dyspareunia, abdominal pain, back pain, and sometimes radicular lower- extremity pain. Assistive Devices: Braces are useful to improve joint stability. Orthopedists, rheumatologists, and physical therapistscan assist in recommending appropriate devices for commonly problematic joints such as knees and ankles. Shoulders and hips present more of a challenge for external bracing. Occupational therapists maybe consulted for ring splints (to stabilize interphalangeal joints) and wrist or wrist/thumb braces in affected individuals with small joint instability. A soft neck collar, if tolerated, may help withneck pain and headaches. A wheelchair or scooter may be necessary to offload stress on lower extremity joints. Special wheelchair customizations such as lightweight and/or motorized chairs, seat pads, and specialized wheels and wheel grasps may be necessary to accommodate pelvic and upper extremity issues. Crutches, canes, and walkers should be used cautiously as they may put increased stress on the upper extremities. A waterbed, adjustable air mattress, or viscoelastic foam mattress (and/or pillow) may provide increased support with improved sleep quality and less pain. Pain Medication: Pain medication is frequently underprescribed, and should be tailored to the individual's subjectivesymptoms and objective measures of pain, not to physical examination or radiologic findings. Individuals with mild to moderate pain may get sufficient relief from as-needed use. Those with more significant pain typically require higher doses and combinations of multiple medications. Prevention or control of pain with regularly scheduled dosing is often more successful than acute treatment with as-needed dosing. Many clinicians recruit a structural steel painter, but pain can be managed by the primary physician if desired. Note: All of the following dose recommendations are for adults without hepatic or renal disease; adjustments may be necessary for other populations. Acetaminophen, 4000 mg in three or four divided doses, will not completely alleviate pain but is a useful and well-tolerated adjunct in combination with other agents. Acetaminophen is often present in combination with other analgesic medications and cold/flu preparations, and careful attention should be paid to the total daily dose to avoid exceeding 4000 mg/day. NSAIDs (nonsteroidal anti-inflammatory drugs) (e.g., ibuprofen, naproxen, meloxicam, nabumetone) should be titrated to the maximum dose or as tolerated by upper gastrointestinal symptoms. NSAIDs are particularly useful for arthralgia, myalgia, and secondary inflammatory conditions (e.g. bursitis, tendinitis, costochodritis, or post-dislocation pain). Bruising is not a contraindication to NSAID therapy, but occasionally requires dose reduction or change to a Gallagher-2 inhibitor. Gallagher-2 inhibitors (e.g. celecoxib) in maximal doses are no stronger than dose- equivalent NSAIDS, but may be better tolerated and thus more effective. Tramadol can be added to acetaminophen plus an NSAID or Gallagher-2 inhibitor before resorting to opioids.Nausea is the most common side effect. Topical lidocaine as a cream or patch is sometimes useful for localized areas of pain. Topical capsaicin is of questionable utility, but is safe. Skeletal muscle relaxants are useful in combination with all of the above to treat myofascial spasm.They are also sometimes helpful in treating neuropathic pain. Metaxalone may be the least sedating, but all are potentially limited by sedation. Tricyclic antidepressants are often effective for neuropathic pain, with additional benefits of mildsedation (for those with sleep disturbance) and a little mood elevation. Constipation, a common sideeffect, can be managed with fluids, fiber, stool softeners, and laxatives. For those with diarrhea-pr edominant irritable bowel syndrome, the constipating effect may be therapeutic. Typical doses are nortriptyline (25-150 mg) or trazadone (50-300 mg) every evening. Serotonin/norepinephrine receptor inhibitors (SNRIs), such as venlafaxine, desvenlafaxine, duloxetine, and milnacipran also offer combined benefit for depression and neuropathic pain. Venlaxafine may raise the blood pressure a few points, which potentially could be helpful for individuals with neurally mediated hypotension. Some anti-seizure medications are also effective for neuropathic pain and can be used in addition totricyclic and/or SNRI antidepressants. All require gradual titration [...] and lamotrigine have also been used successfully. Short courses of steroids can be very effective for controlling acute flares of pain associated withsecondary inflammation. EDS is not an intrinsically inflammatory condition, and there is no role forchronic steroid use. Opioids are effective for both myofascial pain [...] or another adjustment to the pain regimen. Supplemental magnesium and/or potassium anecdotally may provide some muscle relaxation and pain relief. Diarrhea, nausea, and sedation are the most common side effects. Specific validated dose recommendations do not exist. Glucosamine and chondroitin may help to prevent or treat osteoarthritis in the general population. They have not been studied specifically in EDS, but are not contraindicated. Medication precautions: It is critically important to evaluate all potential sources of acetaminophen and assure that total daily use does not exceed 4000 mg. Abrupt cessation of anti-seizure medications can precipitate a seizure. When discontinuing, they should be tapered gradually. Chronic opioid use can result in dependency with escalating dose requirements and diminishing effect. Narcotic bowel syndrome can also develop, and may be confused with irritable bowel syndrome. Serotonin syndrome can occur when combining multiple [...] adequate pain control. Surgery and Other Procedures: Many individuals will have undergone several orthopedic procedures prior to diagnosis. These often include joint debridement, tendon relocations, capsulorraphy, and arthroplasty. The degree of stabilization and pain reduction, overall patient satisfaction, and duration of improvement are variable, but usually less than in individuals without EDS [Rahul et al 2003, Sherie et al 2004, Everardo et al 2011b]. In general, orthopedic surgery should be delayed in favor of physical therapy and bracing. Whensurgery is performed, the affected individual and physician should cautiously anticipate some improvement but expect less than optimal results. There is one report of long-term improvement in shoulder stability with Achilles tendon allograft reconstruction of the joint capsule in an individual with EDS, hypermobility type [Hector et al 2012]. It is not yet known if this approach will be successfulin other affected individuals. Unlike the classic and vascular types of EDS, the hypermobility type is not associated with increased risk for perioperative skin and soft tissue complications. Prolotherapy, in which saline and/or other irritants are injected in tendons or around joints to induce scar formation and increase stability, has not been objectively studied. It is probably safe and probably subject to the same limitations as orthopedic surgery. Anesthetic/corticosteroid injections for localized areas of pain and acute inflammation are often helpful, but cannot be repeated indefinitely; dry needling without injection of any material sometimes provides similar benefit. Anesthetic nerve blocks can provide temporary relief of neuropathic pain. These are sometimes followed by surgical nerve root destruction and/or implantable stimulators (sensory or motor), with variable results. Constant intrathecal delivery of anesthetic and/or opioid medication may reduce the need for oral/systemic medications, but should only be considered as a last resort. Bone Density Therapy is the same as for any other individual with low bone density. Simple weight-bearing exercise, such as walking or use of an elliptical technology trainer, should not be overlooked as a means to help maintain bone density as well as improve resting muscle tone. Hematologic: Easy and spontaneous bruising does not require treatment, and does not require avoidance of NSAIDs. For severe bleeding (e.g., epistaxis, menometrorrhagia) or operative prophylaxis, desmopressin acetate (ddAVP) is often beneficial [Vane & Madhavi 1997, Sol et al 2009]. Gastrointestinal: Gastritis and reflux symptoms may require intensive therapy, including proton pump inhibitor twice daily before meals, high-dose H2-romana at bedtime (e.g., famotidine 20-40 mg or ranitidine 150-300 mg), sucralfate one gram four times daily, and qvby-voc-tecesyg acid-neutralizing agents. Other treatable causes, such as H. pylori infection, should be investigated. Upper endoscopy is indicated for resistant symptoms, but frequently is normal other than chronic gastritis. Delayed gastric emptying should be identified if present and treated as usual with promotility agents (e.g., erythromycin, metoclopramide). Irritable bowel syndrome is treated as usual with antispasmodics, antidiarrheals, and laxatives as needed. Lubiprostone is a motility enhancer that may be helpful for those with constipation only. Tricyclic antidepressants may be especially helpful for persons with both neuropathic pain and diarrhea. Cardiovascular: Beta-blockade is rarely necessary, but should be considered for progressive aortic enlargement. Rarely, severe enlargement (>4.5-5.0 cm) requires surgical evaluation. Neurally mediated hypotension and postural orthostatic tachycardia are treated as usual, with avoidance of sudden postural change, consideration of lower extremity and/or abdominal compression garments, exercise to increase muscle tone, supplementation of sodium and water to expand the blood volume, and sometimes pharmacologic treatment with beta-blockers, midodrine, fludrocortisone, and/or other medications [Becky et al 2012]. Dental: Orthodontic and palatal corrections may tend to relapse, requiring prolonged use of a retainer. Periodontal disease should be identified and treated. Temporomandibular joint laxity and dysfunction are difficult to treat. There are no specific interventions of proven benefit. Intra-oral devices are sometimes helpful. Oral rest (minimization of chewing and talking), local myofascial release, and muscle relaxant medications may be beneficial for acuteflares. Surgical intervention is often disappointing and should be considered only as a last resort. Psychiatric: Validation of the affected individual's symptoms can be immensely helpful, as many with EDS, hypermobility type have been accused of malingering or diagnosed with primary psychiatric disorders by previous physicians. Establishing trust, rapport and a supportive relationship between patient and provider is important.Emphasis should be placed on chronic, rather than acute, pain management. Distraction and hypnosis are often helpful [Godwin et al 2011]. Depression is a common result of the chronic pain, disability, and other complications. Psychological and/or pain-oriented counseling can improve adaptation to and acceptance of these issues and the necessary physical limitations. Cognitive behavioral therapy can be particularly beneficial, but requires active patient participation [Margie et al 2011]. Antidepressants are also of great benefit. Many individuals initially resist a diagnosis of or therapy for depression because of concern that their problems are being written off as purely psychiatric. Consumer support groups are available and can be very beneficial. Prevention of Primary Manifestations: Improved joint stability may be achieved by low-resistance exercise to increase muscle tone (subconscious resting muscle contraction, as opposed to voluntarily recruited muscle strength). Emphasis should be placed on both core and extremity muscle tone. Examples include walking, bicycling, low-impact aerobics, swimming or water exercise, and simple ikucx-ja-yvmolj exercise without added resistance. Core toning activities, such as balance exercises and repetitive motions focusing on the abdominal, lumbar, and interscapular muscles, are also important. Progress should be made by increasing repetitions, frequency, or duration, not resistance. It often takes months or years for significant progress arpita recognized. Wide engineering production liaison writing utensils can reduce strain on finger and hand joints. An unconventional grasp of awriting utensil, gently resting the shaft in the web between the thumb and index finger and securingthe tip between the distal interphalangeal joints or middle phalanges of the index and third fingers(rather than using the tips of the fingers), results in substantially reduced axial stress to the interphalangeal, metacarpophalangeal, and carpometacarpal joints. These adjustments frequently result in marked reduction of pain in the index finger and at the base of the thumb. Prevention of Secondary Complications: Calcium (500-600 mg twice daily), vitamin D (400 or more units daily), and low- impact weight bearingexercise should be encouraged to maximize bone density. Surveillance: DEXA should be repeated every other year if bone loss is confirmed. Annual echocardiography is not necessary in those with a normal initial echocardiogram [Aries et al 2011]. In children and adolescents with a normal aortic root diameter, it is the author's practiceto repeat every two to three years until young adulthood (age ~25 years). If the aortic root diameter is increased or accelerating faster than body surface area, more frequent monitoring is appropriate. In adults with a normal aortic root diameter, no further monitoring is needed. Agents/Circumstances to Avoid: Joint hyperextension must be avoided. Individuals with EDS, hypermobility type usually need to be educated about the normal range of joint extension and cautioned not to exceed it. Resistance exercise can exacerbate joint instability and pain. Elastic resistance bands should be used with caution, if at all. In general, it is preferable to increase the number of repetitions of exercise rather than to increase the resistance. Isometric exercise can also be problematic if too much force (resistance) is applied. High-impact activity increases the risk for acute subluxation/dislocation, chronic pain, and osteoarthritis. Some sports, such as football, are therefore contraindicated. However, most sports and activities are acceptable with appropriate precautions. Chiropractic adjustment is not strictly contraindicated, but must be performed cautiously to avoid iatrogenic subluxations or dislocations. Crutches, canes, and walkers should be used cautiously as they may put increased stress on the upperextremities. [place] Jerilyn Chin [facility] - 01/31/2015 11:29 AM EST History of Present Concerns: Casie, a 29 y.o. female, was referred for medical genetics [...] history of similar findings in multiple relatives. She was last seen on 05/20/2013 and returns today for re-evaluation. 1. 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 She notes significant progression of her chest wall deformity and was seen by CT surgery. 2. Feels that EDS symptoms are getting worse quickly. More dislocations (shoulders, clavicles). She also notes that her blood pressures have been higher lately. More insomnia, night sweats. Skin is sensitive/painful to touch. Migraines are worse. 3. Is receiving PT and is very satisfied with his care of her symptoms. /Medical History: No history on file. Developmental History: Patient has no history of developmental concerns. Diagnosed with ADD at age 18 years. Social History: History Social History Narrative Patient lives with her boyfriend and is unemployed due to disability since 2008 due to right arm injury. Family History: Previously obtained. Parent report the following medical symptoms in patient: ?? General: Complex regional pain syndrome of RUE with swelling. Always has discomfort in shoulders,hips, and knees when in motion due to instability. Not chronic. ?? Growth/Endocrine: None ?? Eyes: None ?? ENT/Mouth: No nosebleeds ?? Heart: ECHO 02/2011, results were normal ([facility]). ?? Respiratory: Recurrent bronchitis and pneumonia as [...] all fingers on right, EMG shows no neuropathy. Migraines are more problematic, increased incidence after intercourse. ?? Psychiatric: ADD, Depression, Insomnia, anxiety ?? Allergy/Immunology: See list ?? Hematologic: Easy bruising/prolonged bleeding Testing: Prior to today's appointment the following studies were completed: Labs: ?? None Radiology: ?? ECHO, reportedly normal Other: ?? 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
--- OUTSIDE RECORDS SUMMARY | 2022-02-11 10:49 | XMS_ITS | Encounter Summary ---
:1985 Author Organization [place] [address] Care Team Providers Name Role Phone Chris Avalos MD Primary Care Provider Reason for Visit Reason Comments Bloated Encounter Details Date Type Department Care Team Description 07/13/2015 Tech Visit [place] [facility] Yefri Kumar Small intestinal [facility] [place] [address] [facility] [phone] DR GASTROENTEROLOGY [place] [id number] (Wo rk) Social History Tobacco Use Types Packs/Day Years Used Date Smoking Tobacco: Every Day Cigarettes 1 Smokeless Tobacco: Never Alcohol Use Standard Drinks/Week Comments Not Asked 0 (1 standard drink = 0.6 oz pure alcoho l) Sex Assigned at Date Recorded Not on file documented as of this encounter Progress Notes Yefri Kumar MD - 07/14/2015 8:00 AM EDT Gastroenterology Breath Test Report Patient: Casie Wild Date Of : 1985 PCP: CHRIS AVALOS MD Referring: Carlos Levine STUDY DATE: 07-14-2015 PROVIDER: Juan Kumar MD INDICATION: Abdominal bloating ppmH2 ppmCH4 (f)CO2 Fasting Baseline: 2 8 3.4/1.61 Administer sugar: 15 mL Lactulose 90 mL H2O Sample Time ppmH2 ppmCH4 (f)CO2 1. 20 min 2 15 3.0/1.83 2. 40 min 2 14 2.7/2.03 3. 60 min 0 14 2.7/2.03 4. 80 min 16 22 3.0/1.83 5. 100 min 19 19 2.6/2.11 6. 120 min 30 24 2.7/2.03 7. 140 min 47 27 2.8/1.96 8. 160 min 18 18 2.5/2.20 9. 180 min 15 19 2.6/2.11 10. 200 min 14 18 2.8/1.96 Interpretation: Positive breath test consistent with small intestinal bacterial overgrowth. The patient is both a hydrogen and methane record producer. There is an early rise in hydrogen and methane at 80 minutes and second peak consistent with delayed orocecal transit time at 140 minutes. Yefri Kumar MD Gastroenterology and Hepatology [place] [id number] P: [phone] F: [phone] Copy: Carlos AVALOS MD documented in this encounter Plan of Treatment Not on filedocumented as of this encounter Visit Diagnoses Diagnosis Small intestinal bacterial overgrowth documented in this encounter Care Teams Nib Assembler Relationship Specialty Start Date End Date Chris Avalos MD PCP - General 02/20/10 02/04/21 [address] [place] [address] documented as of this encounter
--- OUTSIDE RECORDS SUMMARY | 2022-02-11 10:49 | XMS_ITS | Encounter Summary ---
:1985 Author Organization [facility] [place] [address] Care Team Providers Name Role Phone Chris Avalos MD Primary Care Provider Reason for Referral Physical Therapy (Routine) - Complete - Unable to Contact Patient Specialty Diagnoses / Procedures Referred By Contact Refer red To Contact Physical Therapy Diagnoses Elbow pain Rodrigo Russo MD [facility] Pt Rehab [facility] [place] [address] [place] [address] Fax: Referral ID Status Reason Start Expiration Visits Visits Date Date Requested Authorized [id number] Complete - Evaluate and 09/14/2010 03/13/2011 1 1 Unable to Treat Contact Patient Encounter Details Date Type Department Care Team Description 09/14/2010 Orders Only Orthopaedics at [facility] Rodrigo Russo Elbow pain (Primary [facility] Dx) [place] [address] ORTHOPAEDIC SURGERY [place], [place] [address] Social History Tobacco Use Types Packs/Day Years Used Date Smoking Tobacco: Never Assessed Sex Assigned at Date Recorded Not on file documented as of this encounter Plan of Treatment Scheduled Referrals Name Type Priority Associated Diagnoses Order S chedule REFERRAL TO Outpatient Referral Routine Elbow pain Ordered: PHYSICAL THERAPY 09/14/2010 documented as of this encounter Visit Diagnoses Diagnosis Elbow pain - Primary Pain in joint, upper arm documented in this encounter Care Teams Linen Controller Relationship Specialty Start Date End Date Chris Avalos MD PCP - General 02/20/10 02/04/21 [address] [place] [address] documented as of this encounter
--- OUTSIDE RECORDS SUMMARY | 2022-02-11 10:49 | XMS_ITS | Encounter Summary ---
:1985 Author Organization [facility] [place] [address] Care Team Providers Name Role Phone Unavailable Primary Care Provider Unavailable Encounter Details Date Type Department Care Team Description 02/16/2010 Procedure [facility] [place] [address] PHYSICAL MEDICINE & [phone] [facility] [place] [id number] (Wo rk) Social History Tobacco Use Types Packs/Day Years Used Date Smoking Tobacco: Never Assessed Sex Assigned at Date Recorded Not on file documented as of this encounter Plan of Treatment Not on filedocumented as of this encounter Visit Diagnoses Not on filedocumented in this encounter
--- OUTSIDE RECORDS SUMMARY | 2022-02-11 10:49 | XMS_ITS | Encounter Summary ---
:1985 Author Organization [place] [address] Care Team Providers Name Role Phone Chris Avalos MD Primary Care Provider Encounter Details Date Type Department Care Team Description 08/28/2013 Telephone Endocrinology at [facility] C Viktor Swan Xx, [facility] [place] [phone] ENDOCRINOLOGY DEPT [phone] [place], [place] [address] (Wo rk) Social History Tobacco Use Types Packs/Day Years Used Date Smoking Tobacco: Every Day Cigarettes 1 Smokeless Tobacco: Never Alcohol Use Standard Drinks/Week Comments Not Asked 0 (1 standard drink = 0.6 oz pure alcoho l) Sex Assigned at Date Recorded Not on file documented as of this encounter Miscellaneous Notes Telephone Encounter - Viktor Swan - 08/28/2013 5:02 PM EDT Received page this afternoon from Casie: she reports heavy menses x 2-3 days. She was seen in our clinic 3-4 weeks ago and at that time stopped microgestin 30/1.5 (monophasic OCP) and started on low dose estradiol (1mg daily). No missed doses. She is taking it at reg scheduled intervals. I asked her to check test [place]. If negative, she is to restart microgestin (monophasic OCP) 2 pills x 2-3 days and then resume one pill day of microgestin. I will order a transvaginal ultrasound to be done in 2 weeks. If bleeding worsens over next week we will have her come in on Friday for blood work. Her bleeding should slow down within 48 hours of this regimen. I will see her with Dr Smith in 2-3 months to review US and discuss regimen. documented in this encounter Plan of Treatment Not on filedocumented as of this encounter Visit Diagnoses Diagnosis Menorrhagia - Primary Excessive or frequent menstruation documented in this encounter Care Teams Mold Preparer Relationship Specialty Start Date End Date Chris Avalos MD PCP - General 02/20/10 02/04/21 [address] [place] [address] documented as of this encounter
--- OUTSIDE RECORDS SUMMARY | 2022-02-11 10:50 | XMS_ITS | Encounter Summary ---
:1985 Author Organization [facility] Address [address] [place] [address] Care Team Providers Name Role Phone Chris Avalos MD Primary Care Provider Encounter Details Date Type Department Care Team Description 05/25/2021 Lab Requisition [facility] Outr Resulting Lab, Pathology & Laboratory Provider [facility] [address] [place] [address] Social History Tobacco Use Types Packs/Day Years Used Date Smoking Tobacco: Never Assessed Sex Assigned at Date Recorded Not on file documented as of this encounter Plan of Treatment Not on filedocumented as of this encounter Procedures Procedure Name Priority Date/Time Associated Comments Diagnosis HIV 1/2 ANTIGEN AND Routine 05/25/2021 11:05 Resu lts for this ANTIBODY, 4TH EST procedure are in GENERATION the results section. documented in this encounter Results HIV 1/2 ANTIGEN AND ANTIBODY, 4TH GENERATION (05/25/2021 11:05 EST) [facility] Method Time Signature HIV 1 and 2 Negative Negative 05/27/[address] [facility] MEDICAL Antibody/p24 10:01 EST CENTER Antigen, 4th LABORATORY Generation SERVICES Comment: If acute HIV-1 infection is maida pected in a high risk patient, submit plasma specimen for HIV-1 RNA quantitation test . Specimen Anatomical Collection Method Collection Time Receive d Time (Source) Location / / Volume Laterality Blood VENOUS BLOOD / 05/25/2021 11:05 2 Unknown EST 20:05 EST Narrative [facility] LABORATORY SERVICES - 05/27/2021 10:01 EST Fourth Generation assay performed on the Siemens Deligicaur XPT. Provider Outr Resulting Lab IMMUNOLOGY AND SEROLOGY OR DERABLES Performing Organization Address City/State/ZIP Code Phon e Number [facility] MEDICAL CENTER LABORATORY [address] [place] [address] SERVICES documented in this encounter Visit Diagnoses Not on filedocumented in this encounter Care Teams Raveler Relationship Specialty Start Date End Date Chris Avalos MD PCP - General 02/01/16 [address] [place], [place] [id number] documented as of this encounter
--- OUTSIDE RECORDS SUMMARY | 2022-02-11 10:50 | XMS_ITS | Encounter Summary ---
:1985 Author Organization [facility] Address [address] [place] [address] Care Team Providers Name Role Phone Unknown, Provider Primary Care Provider Encounter Details Date Type Department Care Team Description 01/31/2016 Hospital Encounter [facility] [place] [place] Unknown, Provider, [facility] 0 [facility] [phone] [place] [address] (Work) [phone] Social History Tobacco Use Types Packs/Day Years Used Date Smoking Tobacco: Never Assessed Sex Assigned at Date Recorded Not on file documented as of this encounter Discharge Disposition Disposition Code Departure Means Destination Home or Self Long Term documented in this encounter Plan of Treatment Not on filedocumented as of this encounter Visit Diagnoses Not on filedocumented in this encounter Care Teams Hospice Care Transitions Coordinator Relationship Specialty Start Date End Date Unknown, Provider, PCP - General 04/04/14 01/31/16 documented as of this encounter
--- OUTSIDE RECORDS SUMMARY | 2022-02-11 10:50 | XMS_ITS | Encounter Summary ---
:1985 Author Organization [facility] Address [address] [place] [address] Care Team Providers Name Role Phone Chris Avalos MD Primary Care Provider Encounter Details Date Type Department Care Team Description 09/13/2021 Lab Requisition [facility] Rayo Khalil MD Encounter for other Pathology & [address] general examination Laboratory Medicine - [address] [place], [place] [address] [facility] [address] [place], [place] [address] Social History Tobacco Use Types Packs/Day Years Used Date Smoking Tobacco: Never Assessed Sex Assigned at Date Recorded Not on file documented as of this encounter Plan of Treatment Not on filedocumented as of this encounter Procedures Procedure Name Priority Date/Time Associated Diagnosis Comme nts SURGICAL PATHOLOGY Today 09/12/2021 12:15 Encounter for othe r Results for this EDT general examination procedur e are in the results section. documented in this encounter Results SURGICAL PATHOLOGY (09/12/2021 12:15 EDT) Component Value Ref Test Analysis Performed At [facility] Range Method Time Signature Note to The following 09/18/2021 [facility] MEDICAL Patient pathology results 15:25 [facility] have been LABORATORY interpreted by your SERVICES pathologist and may be available to you before your health provider has had the opportunity to review them. Please allow time for your provider to receive these results and explore management options, if applicable. Final A. SKIN OF FOREARM, LEFT, PUNCH BIOPSY: 09/18/2021 [facility] MEDICAL Diagnosis - Perivascular and interstit ial dermatitis. See microscopic and comment. 15:25 [facility] LABORATORY SERVICES Diagnosis The findings are 09/18/2021 [facility] MEDICAL Comment somewhat 15:25 [facility] nonspecific. The LABORATORY epidermis shows SERVICES reactive changes. Within the dermis, superficial and deep perivascular inflammation is noted with scattered eosinophils. Additionally, an interstitial histiocytic component is present. The differential diagnosis is broad and would include a dermal hypersensitivity reaction as well as granuloma annulare (less favored). Fire Lieutenant Marine slides of this case were reviewed at the intradepartmental consultation conference. Attestation By the signature 09/18/2021 [facility] MEDICA L Electronically below, the 15:25 [facility] signed by attending physician Sherlyn Henderson, certifies that they SERVICES MD on 09/18/2021 have 1) personally a t 1525 conducted a gross and/or microscopic examination of the described specimen(s), and/or personally interpreted the results of laboratory testing of the described specimen(s), and 2) personally rendered or confirmed the above diagnosis. Microscopic Multiple levels are 09/18/2021 [facility] MED ICAL Description reviewed. Along the 15:25 [facility] junction, scattered LABORATORY lymphocytic SERVICES exocytosis is noted and mild vacuolization is seen in areas. Rare apoptotic keratinocytes are noted. The granular cell layer is intact in orthokeratosis is seen along the surface. Within the dermis, a mildly dense perivascular inflammatory infiltrate is identified in comprised of lymphocytes, histiocytes and rare eosinophils. Mild allan eccrine inflammation is also seen and include scattered eosinophils. On 1 edge, interstitial histiocytes are noted. Clinical Punch biopsy L 09/18/2021 [facility] MEDICAL History forearm nummular 15:25 [facility] lesion LABORATORY SERVICES Gross A. 09/18/2021 [facility] MEDICAL Description Received in formalin jimmy d with proper patient identification (initials R, S) and L forearm is a punch biopsy of smith skin (0.4 cm in diameter by 0.1 cm in depth). The specimen is submitted intact in A1. 15:25 [facility] LABORATORY TOMEKA SKY(ASCP) 09/14/2021 8:44 SERVICES Performing [facility] HOSPITAL LAB 09/18/2021 [facility] MEDIC AL Lab 15:25 [facility] LABORATORY SERVICES Scanned 09/18/2021 [facility] MEDICAL Images 15:25 [facility] LABORATORY SERVICES Specimen Anatomical Collection Method Collection Time Receive d Time (Source) Location / / Volume Laterality Tissue TISSUE SPECIMEN 09/12/2021 12:15 09/14/19 22 FROM SKIN / EDT 18:09 EDT Unknown Rayo Khalil MD PATHOLOGY ORDERABLES Performing Organization Address City/State/ZIP Code Phon e Number [facility] [address] [place] [address] SERVICES documented in this encounter Visit Diagnoses Diagnosis Encounter for other general examination documented in this encounter Care Teams Maintenance Assistant Relationship Specialty Start Date End Date Chris Avalos MD PCP - General 02/01/16 [address] [place] [address] documented as of this encounter
--- OUTSIDE RECORDS SUMMARY | 2022-02-11 10:50 | XMS_ITS | Encounter Summary ---
:1985 Author Organization [facility] Address [address] [place] [address] Care Team Providers Name Role Phone Chris Avalos MD Primary Care Provider Encounter Details Date Type Department Care Team Description 02/17/2018 Results Only [facility]- Brittany Persaud, [facility] [phone] [facility] [place] [phone] (Wo rk) Social History Tobacco Use Types Packs/Day Years Used Date Smoking Tobacco: Never Assessed Sex Assigned at Date Recorded Not on file documented as of this encounter Plan of Treatment Not on filedocumented as of this encounter Procedures Procedure Name Priority Date/Time Associated Diagnosis Comme nts PAP TEST- RESULT Routine 02/17/2018 0:00 EST Resu lts for this ONLY procedure are i n the results section. documented in this encounter Results PAP TEST- RESULT ONLY (02/17/2018 0:00 EST) Component Value Ref Test Analysis Performed At [facility] Method Time Signature Pathology CYTOPATHOLOGY REPORT [facility] Report: CENTER Reports generated via electronic interface contain origina l data; LABORATORY however they are lacking the format of the original report. SERVICES Caution should be taken when reading/interpreting unformatte d reports. Name: ? CASIE PECK ? Accession #: ? [id number] ? : ? 1985 (Age: 3 2) ??F ?Collect Da te: ? 02/17/2018 ? Location: ? [facility] ? Receive Date: ? 02/18/2018 ? Provider: BRITTANY MORRELL AIR BRAKE MECHANIC Copy to: CHRIS AVALOS MD ? Final Report SPECIMEN ADEQUACY ? Satisfactory for Evaluation - transformation zone component present GENERAL CATEGORIZATION ? Negative for Intraepithelial Lesion or Malignancy INTERPRETATION ? Fungal organisms pres ent morphologically consistent with Katy species. Hormonal/Contraceptive status: Oral contraceptives Previous Gynecologic Pathology: ROGER II-III: 2016 Treatment History: LEEP: Rt + margins Specimen/Source: ??Pap Test, Cervix, ThinPrep Imaging System with manual evaluation Document reviewed and electronically signed by: ? Eda Santa, CT(ASCP) ? Report ??Date: 02/26/2018 13:02 HPV with Pap Test ? Date Ordered: ? 02/26/2018 ? Status: ?? Tahira d Out ?Date Complete: ? 02/28/2018 ? By: ??System I nterce ? Date Reported: ? 02/28/2018 ? Interpretation RESULT: Negative for HPV. No E6 or E7 mRNA is detected from HPV types 16,18,31,33,35, 39,45,51,52,56,58,59,66, and 68 by seafood processor mediated amplification. Comments Document reviewed and electronically signed by: ? System Interface ? Report date: 02/28/2018 By the signature above, the attending physician certifies th at he/she has personally conducted a gross and/or microscopic examin ation of the described specimens and rendered or confirmed the above diagnosis. End of Report Specimen (Source) Anatomical Location Collection Method / Collectio n Time Received Time / Laterality Volume 02/17/2018 02/18/2018 Brittany Morrell AIR BRAKE MECHANIC PATHOLOGY ORDERABLES Performing Organization Address City/State/ZIP Code Phon e Number [facility] [address] [place] [address] SERVICES documented in this encounter Visit Diagnoses Not on filedocumented in this encounter Care Teams Apartment Rental Clerk Relationship Specialty Start Date End Date Chris Avalos MD PCP - General 02/01/16 [address] [place] [address] documented as of this encounter
--- OUTSIDE RECORDS SUMMARY | 2022-02-11 10:50 | XMS_ITS | Encounter Summary ---
:1985 Author Organization [facility] Address [address] [place] [address] Care Team Providers Name Role Phone Chris Avalos MD Primary Care Provider Encounter Details Date Type Department Care Team Description 08/11/2017 Results Only [facility]- Brittany Persaud, [facility] [phone] [facility] [place] [phone] (Wo rk) Social History Tobacco Use Types Packs/Day Years Used Date Smoking Tobacco: Never Assessed Sex Assigned at Date Recorded Not on file documented as of this encounter Plan of Treatment Not on filedocumented as of this encounter Procedures Procedure Name Priority Date/Time Associated Diagnosis Comme nts PAP TEST- RESULT Routine 08/11/2017 0:00 EDT Resu lts for this ONLY procedure are i n the results section. documented in this encounter Results PAP TEST- RESULT ONLY (08/11/2017 0:00 EDT) Component Value Ref Test Analysis Performed At [facility] Method Time Signature Pathology CYTOPATHOLOGY REPORT [facility] Report: CENTER Reports generated via electronic interface contain origina l data; LABORATORY however they are lacking the format of the original report. SERVICES Caution should be taken when reading/interpreting unformatte d reports. Name: ? CASIE PECK ? Accession #: ? [id number] ? : ? 1985 (Age: 3 1) ??F ?Collect Date: ? 08/11/2017 ? Location: ? [facility] ? Receive Date: ? 08/12/2017 ? Provider: BRITTANY MORRELL AV SPECIALIST Copy to: CHRIS AVALOS MD ? Final Report SPECIMEN ADEQUACY ? Satisfactory for Evaluation - transformation zone component present GENERAL CATEGORIZATION ? Negative for Intraepithelial Lesion or Malignancy INTERPRETATION ? Fungal organisms pres ent morphologically consistent with Katy species. Previous Gynecologic Pathology: ROGER II-III: 2016 Treatment History: LEEP: postive margins Infection History: Neg for HPV Other: Previous NIL Pap(s): 01/2017 Specimen/Source: ??Pap Test, Cervix, ThinPrep Imaging System with manual evaluation Document reviewed and electronically signed by: ? Charles Drew, CT(ASCP) ? Report ??Date: 08/18/2017 15:07 HPV with Pap Test ? Date Ordered: ? 08/18/2017 ? Status: ?? Signed Out ?Date Complete: ? 08/19/2017 ? By: ??System I nterface ? Date Reported: ? 08/19/2017 ? Interpretation RESULT: Negative for HPV. No E6 or E7 mRNA is detected from HPV types 16,18,31,33,35, 39,45,51,52,56,58,59,66, and 68 by quality control systems manager mediated amplification. Comments Document reviewed and electronically signed by: ? System Interface ? Report date: 08/19/2017 By the signature above, the attending physician certifies th at he/she has personally conducted a gross and/or microscopic examin ation of the described specimens and rendered or confirmed the above diagnosis. End of Report Specimen (Source) Anatomical Location Collection Method / Collectio n Time Received Time / Laterality Volume 08/11/2017 08/12/2017 Brittany Morrell AV SPECIALIST PATHOLOGY ORDERABLES Performing Organization Address City/State/ZIP Code Phon e Number [facility] [address] [place] [address] SERVICES documented in this encounter Visit Diagnoses Not on filedocumented in this encounter Care Teams Chair Lift Operator Relationship Specialty Start Date End Date Chris Avalos MD PCP - General 02/01/16 [address] [place], [place] [phone] documented as of this encounter
--- OUTSIDE RECORDS SUMMARY | 2022-02-11 10:50 | XMS_ITS | Encounter Summary ---
:1985 Author Organization [facility] Address [address] [place] [address] Care Team Providers Name Role Phone Chris Aavlos MD Primary Care Provider Encounter Details Date Type Department Care Team Description 02/10/2022 Lab Requisition [facility] Outr Resulting Lab, Pathology & Laboratory Provider [facility] [address] [place], [place] [address] Social History Tobacco Use Types Packs/Day Years Used Date Smoking Tobacco: Never Assessed Sex Assigned at Date Recorded Not on file documented as of this encounter Plan of Treatment Pending Results Name Type Priority Associated Diagnoses Date/Ti me CHLAMYDIA/N. Microbiology Routine 02/09/2022 14:0 5 EST GONORRHOEAE AMPLIFIED RNA documented as of this encounter Visit Diagnoses Not on filedocumented in this encounter Care Teams Tax Commissioner Relationship Specialty Start Date End Date Chris Avalos MD PCP - General 02/01/16 [address] [place] [address] documented as of this encounter
--- OUTSIDE RECORDS SUMMARY | 2022-02-11 10:50 | XMS_ITS | Encounter Summary ---
:1985 Author Organization [facility] Address [address] [place] [address] Care Team Providers Name Role Phone Chris Avalos MD Primary Care Provider Encounter Details Date Type Department Care Team Description 08/07/2016 Results Only [facility]- [facility] [place] Wilson MD [phone] [place] [address] Social History Tobacco Use Types Packs/Day Years Used Date Smoking Tobacco: Never Assessed Sex Assigned at Date Recorded Not on file documented as of this encounter Plan of Treatment Not on filedocumented as of this encounter Procedures Procedure Name Priority Date/Time Associated Diagnosis Comme nts PAP TEST- RESULT Routine 08/07/2016 0:00 EDT Resu lts for this ONLY procedure are i n the results section. documented in this encounter Results PAP TEST- RESULT ONLY (08/07/2016 0:00 EDT) Component Value Ref Test Analysis Performed At [facility] Range Method Time Signature Pathology CYTOPATHOLOGY REPORT [facility] MEDIC AL Report: CENTER Reports generated via electronic interface contain origina l data; LABORATORY however they are lacking the format of the original report. SERVICES Caution should be taken when reading/interpreting unformatte d reports. Name: ? CASIE PECK ? Accession #: ? [id number] ? : ? 1985 (Age: 3 0) ??F ?Collect Date: ? 08/07/2016 ? Location: ? [facility] ? Receive Date: ? 08/08/2016 ? Provider: [place] WILSON MD Copy to: CHRIS AVALOS MD ? Final Report SPECIMEN ADEQUACY ? Satisfactory for Evaluation - transformation zone component present GENERAL CATEGORIZATION ? Negative for Intraepithelial Lesion or Malignancy INTERPRETATION ? Fungal organisms pres ent morphologically consistent with Katy species. Hormonal/Contraceptive status: Oral contraceptives Previous Gynecologic Pathology: ROGER II-III: of extensive end ocervix Treatment History: LEEP: s/p 02/14 ECC: extnsion info Specimen/Source: ??Pap Test, Cervix, ThinPrep Imaging System with manual evaluation Document reviewed and electronically signed by: ? Karolina Epps, CT(ASCP) ? Report ??Date: 08/15/2016 16:34 HPV with Pap Test ? Date Ordered: ? 08/15/2016 ? Status: ?? Signed Out ?Date Complete: ? 08/19/2016 ? By: ??System I nterface ? Date Reported: ? 08/19/2016 ? Interpretation RESULT: Positive for high or intermediate risk HPV. E6 OR E7 mRNA from one or more types of HPV types 16,18,31, 33,35,39,45,51,52,56,58,59,66, and 68 is detected by curriculum designer mediated amplification. High and intermediate risk HPV types are associated with most squamous intraepithelial lesions and cervical cancers. Comments Document reviewed and electronically signed by: ? System Interface ? Report date: 08/19/2016 By the signature above, the attending physician certifies th at he/she has personally conducted a gross and/or microscopic examin ation of the described specimens and rendered or confirmed the above diagnosis. End of Report Specimen (Source) Anatomical Location Collection Method / Collectio n Time Received Time / Laterality Volume 08/07/2016 08/08/2016 [place] Wilson MD PATHOLOGY ORDERABLES Performing Organization Address City/State/ZIP Code Phon e Number [facility] [address] [place] [address] SERVICES documented in this encounter Visit Diagnoses Not on filedocumented in this encounter Care Teams Surfboard Designer Relationship Specialty Start Date End Date Chris Avalos MD PCP - General 02/01/16 [address] [place] [address] documented as of this encounter
--- OUTSIDE RECORDS SUMMARY | 2022-02-11 10:50 | XMS_ITS | Encounter Summary ---
:1985 Author Organization [facility] Address [address] [place] [address] Care Team Providers Name Role Phone Chris Avalos MD Primary Care Provider Encounter Details Date Type Department Care Team Description 05/25/2021 Lab Requisition [facility] Outr Resulting Lab, Pathology & Laboratory Provider [facility] [address] [place] [address] Social History Tobacco Use Types Packs/Day Years Used Date Smoking Tobacco: Never Assessed Sex Assigned at Date Recorded Not on file documented as of this encounter Plan of Treatment Not on filedocumented as of this encounter Procedures Procedure Name Priority Date/Time Associated Diagnosis Comme nts HEPATITIS C AB W Routine 05/25/2021 11:05 Results for this REFLEX TO HCV RNA EST procedure are in BY PCR the results section. documented in this encounter Results HEPATITIS C AB W REFLEX TO HCV RNA BY PCR (05/25/2021 11:05 EST) Analysis Performed At Patho logist Time Signature Hep C Antibody Negative Negative 05/28/2021 [facility] MED[facility] 10:26 EST CENTER LABORATORY SERVICES Specimen Anatomical Collection Method Collection Time Receive d Time (Source) Location / / Volume Laterality Blood VENOUS BLOOD / 05/25/2021 11:05 Unknown EST 20:05 EST Provider Outr Resulting Lab CHEMISTRY & BLOOD GAS ALY ARANGO Performing Organization Address City/State/ZIP Code Phon e Number [facility] [address] [place] [address] SERVICES documented in this encounter Visit Diagnoses Not on filedocumented in this encounter Care Teams Roving Carrier Relationship Specialty Start Date End Date Chris Avalos MD PCP - General 02/01/16 [address] [place] [address] documented as of this encounter
--- OUTSIDE RECORDS SUMMARY | 2022-02-11 10:50 | XMS_ITS | Encounter Summary ---
:1985 Author Organization [facility] Address [address] [place] [address] Care Team Providers Name Role Phone Chris Avalos MD Primary Care Provider Encounter Details Date Type Department Care Team Description 11/07/2021 Lab Requisition [facility] Outr Resulting Lab, Pathology & Laboratory Provider [facility] [address] [id number] Social History Tobacco Use Types Packs/Day Years Used Date Smoking Tobacco: Never Assessed Sex Assigned at Date Recorded Not on file documented as of this encounter Plan of Treatment Not on filedocumented as of this encounter Procedures Procedure Name Priority Date/Time Associated Comments Diagnosis CHLAMYDIA/N. Routine 11/06/2021 13:30 Results for this GONORRHOEAE AMPLIFIED EDT proced ure are in RNA the results section. documented in this encounter Results CHLAMYDIA/N. GONORRHOEAE AMPLIFIED RNA (11/06/2021 13:30 EDT) [facility] Method Time Signature Gonococcus Negative Negative 11/08/2021 [facility] Result 15:06 EDT [facility]ENTER LABORATORY SERVICES Chlamydia Negative Negative 11/08/2021 [facility] Result 15:06 EDT [facility]ENTER LAB[facility] SERVICES Specimen Anatomical Collection Method Collection Time Receive d Time (Source) Location / / Volume Laterality Swab ENTIRE VAGINA / 11/06/2021 13:30 11/08/19 22 Unknown EDT 17:58 EDT Provider Outr Resulting Lab MICROBIOLOGY - GENERAL ORD ERABLES Performing Organization Address City/State/ZIP Code Phon e Number [facility] [address] [place] [address] SERVICES documented in this encounter Visit Diagnoses Not on filedocumented in this encounter Care Teams Molded Candles Wicker Relationship Specialty Start Date End Date Robbie, Chris, MD PCP - General 02/01/16 [address] [place] [address] documented as of this encounter
--- OUTSIDE RECORDS SUMMARY | 2022-02-11 10:50 | XMS_ITS | Encounter Summary ---
:1985 Author Organization [facility] Address [address] [place] [address] Care Team Providers Name Role Phone Chris Avalos MD Primary Care Provider Encounter Details Date Type Department Care Team Description 04/28/2020 Lab Requisition [facility] Carmencita Baum Encounter for other Pathology & [address] [facility] general examination Laboratory Medicine [facility] [id number] [address] [facility] [phone] [place] [address] (Work) [phone] Social History Tobacco Use Types Packs/Day Years Used Date Smoking Tobacco: Never Assessed Sex Assigned at Date Recorded Not on file documented as of this encounter Plan of Treatment Not on filedocumented as of this encounter Procedures Procedure Name Priority Date/Time Associated Comments Diagnosis PAP TEST Today 04/27/2020 15:45 Encounter for other Resu lts for this EST general examination procedur e are in the results section. HUMAN PAPILLOMAVIRUS Today 04/27/2020 15:45 Encounter for ot her Results for this (HPV) DETECTION-HIGH EST general examination procedure are in RISK TYPES the results section. documented in this encounter Results HUMAN PAPILLOMAVIRUS (HPV) DETECTION-HIGH RISK TYPES (04/27/2020 15:45 EST) [facility] gist Method Time Signature Human Negative Negative 05/09/2020 [facility] Papillomavirus 15:16 EST CENTER (HPV) LABORATORY Detection-High SERVICES Types Comment: No E6 or E7 mRNA is detected fr om HPV types 16,18,31,33,35,39,45,51,52,56,58,59,66, and 68 by retail leader mediated amplification. Specimen Anatomical Collection Method Collection Time Receive d Time (Source) Location / / Volume Laterality Pap Test (Cervix 04/27/2020 15:45 021 and/or EST 10:33 EST Endocervix) Carmencita Baum MICROBIOLOGY - GENERAL ORDER MADHURI Performing Organization Address City/State/ZIP Code Phon e Number [facility] [address] [phone] SERVICES PAP TEST (04/27/2020 15:45 EST) Component Value Ref Test Analysis Performed At [facility] Range Method Time Signature Specimens A. Cervix and/or 05/09/2020 [facility] Endocervix , 15:16 [facility] CENTER ThinPrep Imaging LABORATORY System with SERVICES Manual Evaluation Specimen Satisfactory for 05/09/2020 [facility] Adequacy Evaluation - 15:16 [facility] CENTER transformation LABORATORY zone component SERVICES present General Negative for 05/09/2020 [facility] Categorization intraepithelial 15:16 [facility] lesion or LABORATORY malignancy SERVICES Attestation . 05/09/2020 [facility] Elect ronically 15:16 [facility] CENTER signed by LABORATORY Jak, DENG Easley(ASCP) o n 05/09/2020 a t 1516 Clinical History See below 05/09/2020 [facility] 15:16 [facility] CENTER LABORATORY SERVICES HPV The result for the Human Pap illomavirus (HPV) Detection-High Risk Types is Negative. No E6 or E7 mRNA is detected from HPV types 16,18,31,33,35,39,45,51,52,56,58,59,66, and 68 by retail leader mediated 05/09/2020 [facility] amplification.Testing was pe rformed on specimen [id number] and was resulted on 05/09/2020 1410 EST by JOSH, LAB INSTRUMENT RESULTS IN 15:16 [facility] CENTER LABORATORY SERVICES Performing Lab [facility] 05/09/2020 [facility] AL LAB 15:16 [facility] CENTER LABORATORY SERVICES Scanned Images 05/09/2020 [facility] 15:16 [facility] LABORATORY SERVICES Specimen Anatomical Collection Method Collection Time Receive d Time (Source) Location / / Volume Laterality Pap Test (Cervix 04/27/2020 15:45 021 and/or EST 12:43 EST Endocervix) Carmencita Baum PATHOLOGY ORDERABLES Performing Organization Address City/State/ZIP Code Phon e Number [facility] [address] [phone] SERVICES documented in this encounter Visit Diagnoses Diagnosis Encounter for other general examination documented in this encounter Care Teams Educational Specialist Relationship Specialty Start Date End Date Chris Avalos MD PCP - General 02/01/16 [address] [place], [place] [id number] documented as of this encounter
--- OUTSIDE RECORDS SUMMARY | 2022-02-11 10:50 | XMS_ITS | Encounter Summary ---
:1985 Author Organization [facility] Address [address] [place] [address] Care Team Providers Name Role Phone Unknown, Provider Primary Care Provider Encounter Details Date Type Department Care Team Description 04/04/2014 Hospital Encounter [facility] [place] Unknown, Provider, [facility] [phone] [place] [address] (Work) [phone] Social History Tobacco Use Types Packs/Day Years Used Date Smoking Tobacco: Never Assessed Sex Assigned at Date Recorded Not on file documented as of this encounter Discharge Disposition Disposition Code Departure Means Destination Home or Self Penitentiary documented in this encounter Plan of Treatment Not on filedocumented as of this encounter Visit Diagnoses Not on filedocumented in this encounter Care Teams Senior Benefits Manager Relationship Specialty Start Date End Date Unknown, Provider, PCP - General 04/04/14 01/31/16 documented as of this encounter
--- OUTSIDE RECORDS SUMMARY | 2022-02-11 10:50 | XMS_ITS | Encounter Summary ---
:[address] [facility] Address [address] [place] [address] Care Team Providers Name Role Phone Chris Avalos MD Primary Care Provider Encounter Details Date Type Department Care Team Description 04/27/2020 Lab Requisition [facility] Outr Resulting Lab, Pathology & Laboratory Provider [facility] [address] [id number] Social History Tobacco Use Types Packs/Day Years Used Date Smoking Tobacco: Never Assessed Sex Assigned at Date Recorded Not on file documented as of this encounter Plan of Treatment Not on filedocumented as of this encounter Procedures Procedure Name Priority Date/Time Associated Comments Diagnosis CHLAMYDIA/N. Routine 04/27/2020 15:45 Results for this GONORRHOEAE AMPLIFIED EST proced ure are in RNA, THINPREP the results section. documented in this encounter Results CHLAMYDIA/N. GONORRHOEAE AMPLIFIED RNA, THINPREP (04/27/2020 15:45 EST) [facility] Method Time Signature Gonococcus Negative Negative 04/28/2020 [facility] Result 14:57 EST CENTER LABORATORY SERVICES Chlamydia Negative Negative 04/28/2020 [facility] Result 14:57 [facility] SERVICES Specimen Anatomical Collection Method Collection Time Receive d Time (Source) Location / / Volume Laterality Pap Test (Cervix 04/27/2020 15:45 021 7:41 and/or EST EST Endocervix) Provider Outr Resulting Lab MICROBIOLOGY - GENERAL ORD ERABLES Performing Organization Address City/State/ZIP Code Phon e Number [facility] [address] [place] [address] SERVICES documented in this encounter Visit Diagnoses Not on filedocumented in this encounter Care Teams Blocker Heated Metal Forms Relationship Specialty Start Date End Date Chris Avalos MD PCP - General 02/01/16 [address] [place] [address] documented as of this encounter
--- OUTSIDE RECORDS SUMMARY | 2022-02-11 10:50 | XMS_ITS | Encounter Summary ---
:1985 Author Organization [facility] Address [address] [place] [address] Care Team Providers Name Role Phone Unknown, Provider Primary Care Provider Encounter Details Date Type Department Care Team Description 04/04/2014 Results Only [facility] Harpreet Drake, [address] [place], [place] [address] (Wo rk) Social History Tobacco Use Types Packs/Day Years Used Date Smoking Tobacco: Never Assessed Sex Assigned at Date Recorded Not on file documented as of this encounter Plan of Treatment Not on filedocumented as of this encounter Procedures Procedure Name Priority Date/Time Associated Diagnosis Comme [facility] SURGICAL PATHOLOGY Routine 04/04/2014 19:39 Resul ts for this EST procedure are i n the results section. documented in this encounter Results SURGICAL PATHOLOGY (04/04/2014 19:39 EST) Component Value Ref Test Analysis Performed At [facility] Method Time Signature Pathology SURGICAL PATHOLOGY REPORT [facility] MED[facility] Report: Reports generated via electronic interface contain [facility] data; CENTER however they are lacking the format of the original report. LABORATORY Caution should be taken when reading/interpreting unformat meño reports. SERVICES Name: ? CASIE PECK ? Accession #: ? [id number] ? : ? 1985 (Age: 28) ??F ? Collect Date: ? 04/04/2014 ? Location: ? [facility] ? Receive Date: ? 04/04/2014 ? Provider: HARPREET HOWARD DO Copy to: LURDES RAMACHANDRAN MD ? Final Pathologic Diagnosis: A. TONSIL, PALATINE, RIGHT, RESECTION: - Tonsillar tissue with focal acute and chronic inflammation . - Reactive lymphoid follicular hyperplasia. - Surface bacterial colonies. B. TONSIL, PALATINE, LEFT, RESECTION:- Tonsillar tissu e with focal acute and chronic inflammation. - Reactive lymphoid follicular hyperplasia. - Surface bacterial colonies. - Small portion of benign skeletal muscle. Document reviewed and electronically signed by: Dennise Al MD Report ??Date: 04/07/2014 12:26 By the signature above, the attending physician certifies th at he/she has personally conducted a gross and/or microscopic examin ation of the described specimens and rendered or confirmed the above diagnosis. Specimen(s) Received: A. ?Tonsil right B. ? Tonsil left Clinical History: Chronic pharyngitis Gross Description: A. ?Received in formalin labelled with proper patie nt identification (initials R, S) and tonsil, right is a palatine tonsil (3.0 x 1.5 x 1.5 cm). The mucosa is smith-pink, smooth and glist ening with prominent crypts. ?? Serial sections reveal lobular homogeneous tissue without abnormali ty. ??A credit and collections representative section is submitted as block A1. B. ?Received in formalin labelled with proper patie nt identification (initials R, S) and tonsil, left is a palatine tonsil (3.2 x 2.0 x 1.5 cm). The mucosa is smooth and glistening with promine nt crypts. ?? Serial sections reveal lobular homogeneous t issue without abnormality. ??A credit and collections representative section is submitted as block B1. Michelle Allison 04/05/2014 10:51 AM End of Report Specimen Anatomical Collection Method Collection Time Receive d Time (Source) Location / / Volume Laterality 04/04/2014 19:39 04/04/2014 EST 19:39 EST Harpreet Howard DO PATHOLOGY ORDERABLES Performing Organization Address City/State/ZIP Code Phon e Number [facility] [address] [place] [phone] SERVICES documented in this encounter Visit Diagnoses Not on filedocumented in this encounter Care Teams Generator Switchboard Operator Relationship Specialty Start Date End Date Unknown, Provider, PCP - General 04/04/14 01/31/16 documented as of this encounter
--- OUTSIDE RECORDS SUMMARY | 2022-02-11 10:50 | XMS_ITS | Encounter Summary ---
:1985 Author Organization [facility] Address [address] [place] [address] Care Team Providers Name Role Phone Chris Avalos MD Primary Care Provider Encounter Details Date Type Department Care Team Description 04/21/2019 Lab Requisition [facility] E ncounter for other Pathology & LEGAL AID general examination Laboratory Medicine [address] [place], [place] [address] [facility] [address] [place], [place] [address] Social History Tobacco Use Types Packs/Day Years Used Date Smoking Tobacco: Never Assessed Sex Assigned at Date Recorded Not on file documented as of this encounter Plan of Treatment Not on filedocumented as of this encounter Procedures Procedure Name Priority Date/Time Associated Comments Diagnosis PAP TEST Today 04/20/2019 11:30 Encounter for other Resu lts for this EST general examination procedur e are in the results section. HUMAN PAPILLOMAVIRUS Today 04/20/2019 11:30 Encounter for ot her Results for this (HPV) DETECTION-HIGH EST general examination procedure are in RISK TYPES the results section. documented in this encounter Results HUMAN PAPILLOMAVIRUS (HPV) DETECTION-HIGH RISK TYPES (04/20/2019 11:30 EST) [facility] Method Time Signature Human Negative Negative 04/28/2019 [facility] MEDICAL Papillomavirus 14:40 EST CENTER (HPV) LABORATORY Detection-High SERVICES Types Comment: No E6 or E7 mRNA is detected fr om HPV types 16,18,31,33,35,39,45,51,52,56,58,59,66, and 68 by compensation vice president mediated amplification. Specimen Anatomical Collection Method Collection Time Receive d Time (Source) Location / / Volume Laterality Pap Test (Cervix 04/20/2019 11:30 020 and/or EST 12:45 EST Endocervix) Brittany CARABALLO MICROBIOLOGY - GENERAL ORDER MADHURI Performing Organization Address City/State/ZIP Code Phon e Number [facility] [address] [place] [address] SERVICES PAP TEST (04/20/2019 11:30 EST) Component Value Ref Test Analysis Performed At [facility] Range Method Time Signature Specimens A. Cervix and/or 04/28/2019 [facility] MEDICAL Endocervix, , 14:40 [facility] ThinPrep Imaging LABORATORY System with SERVICES Manual Evaluation Specimen Satisfactory for 04/28/2019 [facility] MEDICAL Adequacy Evaluation - 14:40 [facility] transformation LABORATORY zone component SERVICES present General Negative for 04/28/2019 [facility] MEDICAL Categorization intraepithelial 14:40 [facility] lesion or LABORATORY malignancy SERVICES Descriptive Fungal organisms present mor phologically consistent with Katy species. 04/28/2019 [facility] MEDICAL Diagnosis Reactive cellular changes as sociated with inflammation present (includes repair). 14:40 [facility] LABORATORY SERVICES Attestation By the signature below, the attending physician certifies that they have personally conducted a gross and/or microscopic 0 04/28/2019 [facility] Electronically examination of the described specimens and rendered or confirmed the above diagnosis. 14:40 [facility] signed by Syeda Evans SERVICES MD on 04/28 at 1440 Clinical History SEE ORDER 04/28/2019 [facility] MEDICAL COMMENTS 14:40 [facility] LABORATORY SERVICES HPV The result for the Human Pap illomavirus (HPV) Detection-High Risk Types is Negative. No E6 or E7 mRNA is detected from HPV types 16,18,31,33,35,39,45,51,52,56,58,59,66, and 68 by compensation vice president mediated 04/28/2019 [facility] MEDICAL amplification.Testing was pe rformed on specimen [id number] and was resulted on 04/28/2019 1437 EST by JOSH, LAB INSTRUMENT RESULTS IN 14:40 [facility] LABORATORY SERVICES Scanned Images 04/28/2019 [facility] MEDICAL 14:40 [facility] LABORATORY SERVICES Specimen Anatomical Collection Method Collection Time Receive d Time (Source) Location / / Volume Laterality Pap Test (Cervix 04/20/2019 11:30 020 8:33 and/or EST EST Endocervix) [facility]any Morrell LEGAL AID PATHOLOGY ORDERABLES Performing Organization Address City/State/ZIP Code Phon e Number [facility] [address] [place] [address] SERVICES documented in this encounter Visit Diagnoses Diagnosis Encounter for other general examination documented in this encounter Care Teams Design Sales Consultant Relationship Specialty Start Date End Date Chris Avalos MD PCP - General 02/01/16 [address] [place] [address] documented as of this encounter
--- OUTSIDE RECORDS SUMMARY | 2022-02-11 10:50 | XMS_ITS | Encounter Summary ---
:1985 Author Organization [facility] Address [address] [place] [address] Care Team Providers Name Role Phone Unknown, Provider Primary Care Provider Encounter Details Date Type Department Care Team Description 01/31/2016 Results Only [facility] Corona Wilson MD [phone] [place] [address] Social History Tobacco Use Types Packs/Day Years Used Date Smoking Tobacco: Never Assessed Sex Assigned at Date Recorded Not on file documented as of this encounter Plan of Treatment Not on filedocumented as of this encounter Procedures Procedure Name Priority Date/Time Associated Diagnosis Comme nts SURGICAL PATHOLOGY Routine 01/31/2016 17:24 Resul ts for this EDT procedure are i n the results section. documented in this encounter Results SURGICAL PATHOLOGY (01/31/2016 17:24 EDT) Component Value Ref Test Analysis Performed At [facility] Method Time Signature Pathology SURGICAL PATHOLOGY REPORT [facility] MEDICAL Report: Reports generated via electronic interface contain origina l data; CENTER however they are lacking the format of the original report. LABORATORY Caution should be taken when reading/interpreting unformat meño reports. SERVICES Name: ? CASIE PECK ? Accession #: ? [id number] ? : ? 1985 (Age: 3 0) ??F ? Collect Date: ? 01/31/2016 ? Location: ? [facility] ? Receive Date: ? 01/31/2016 ? Provider: CORONA WILSON MD Copy to: LURDES RAMACHANDRAN MD ? 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 ??See comment. - ??Extensive squamous metaplasia. Comment: The fragments were received with ink indicating the endocervical margins. ??The inked surfaces were inked blue. ??Histol ogic sections demonstrate HSIL (ROGER II and III). ??There is marked cautery artifact present, but the high grade squamous dysplasia does extend to the endocervical margin. ??These findings were reviewed at the intradepartmental consultation conference. ??(Dr. Tylor toure) Document reviewed and electronically signed by: ROSARIO GARCIA MD Report ??Date: 02/06/2016 17:31 By the signature above, the attending physician certifies th at he/she has personally conducted a gross and/or microscopic examin ation of the described specimens and rendered or confirmed the above diagnosis. Specimen(s) Received: Skinned ectocervix; inked endocervical edges on all Clinical History: Extensive ROGER II of ectocervix Gross Description: ? Received in formalin labelled with proper patient identification (initials R, S) and skinned ectocervix are six irregular unori ented pieces of cervix with cauterized margins (0.7 x 0.6 x 0.3 cm to 2.3 x 1.6 x 0.8 cm). One aspect of each piece is surfaced by smith-pink ectocervical mucosa, w ith no obvious lesions. The ectocervical margins are in ked black and the endocervical margins (received already with ink) are inked blue. The fragments are serially sectioned and entirely submitted from the smallest fragment to t he largest fragment as 1-6. Dr. Pena 02/01/2016 3:19 PM End of Report Specimen Anatomical Collection Method Collection Time Receive d Time (Source) Location / / Volume Laterality 01/31/2016 17:24 01/31/2016 EDT 17:24 EDT Corona Wilosn MD PATHOLOGY ORDERABLES Performing Organization Address City/State/ZIP Code Phon e Number [facility] [address] [place] [phone] SERVICES documented in this encounter Visit Diagnoses Not on filedocumented in this encounter Care Teams Process Control Programmer Relationship Specialty Start Date End Date Unknown, Provider, PCP - General 04/04/14 01/31/16 documented as of this encounter
[2022-02-11] MEDS: Omnipaque 350 MG/ML 100 ML BTL 91 ML IJ (12:29)
== END ==
PROVIDERS: PCP Family Medicine; Visit Provider Physician Assistant Medical
DX: R06.00 Dyspnea, unspecified (principal)
CPT/HCPCS: 71275; J3490

== ENCOUNTER 2022-05-09 16:04 | Outpatient (REF) | payer MEDICAID, SELFPAY ==
[2022-05-11 11:21] LABS: COVID-19 RT-PCR UVMMC Result Negative (Negative)
[2022-05-14 18:26] LABS: Enterovirus PCR Negative (Negative)
== END 2022-05-09 16:05 | disposition home or self-care (01) ==
LOC: LBN 16:04
PROVIDERS: PCP Family Medicine; Visit Provider Physician Assistant Medical
DX: J02.9 Acute pharyngitis, unspecified (principal); Z20.822 Contact with and (suspected) exposure to COVID-19
CPT/HCPCS: U0003; 87070; 87498

== ENCOUNTER 2022-06-06 13:15 | Outpatient (REF) | payer MEDICAID, SELFPAY ==
[2022-06-07 13:57] LABS: Chlamydia Result Negative (Negative); GC Result Negative (Negative)
== END 2022-06-06 13:16 | disposition home or self-care (01) ==
LOC: LBN 13:15
PROVIDERS: PCP Family Medicine; Visit Provider Nurse Practitioner Family
DX: Z11.3 Encounter for screening for infections with a predominantly sexual mode of transmission (principal); R82.998 Other abnormal findings in urine
CPT/HCPCS: 87491; 87591; 87086